=== PATIENT | female | born 1945 | race Caucasian/White ===

== ENCOUNTER → 2016-12-20 | Outpatient (CLI) | payer BC, OTHER ==
[~2016-12-20] MED LIST: ADVIN10/60 INH; ASCO500T16 PO; B-COCAP2 PO; BUDESUS; CHOL1000 PO; CTP1 PO; ERGO1TAB PO; HYDR0.054 PV; LEVO112T4 PO; LIDEX TD; MUCINEX PO; NTRGSL/4 UT; NXM/40 PO; OXYC-57 PO; TELM40TA PO; TELM40TA11 PO; VERA1TAB PO; XPNIN INH
== END | disposition home or self-care (01) ==
LOC: C.LABSPEC 11:09
PROVIDERS: ATTEND Urology
DX: N20.0 Calculus of kidney (principal)

== ENCOUNTER → 2017-01-22 | Outpatient (CLI) | payer BC, OTHER ==
--- NOTE | 2017-01-22 10:55 | DIAGNOSTIC IMAGING REPORT ---
CHEST CT WITHOUT CONTRAST CT DOSE: 252.57 mGy.cm HISTORY: Pulmonary nodule SOLITARY PULMONARY NODULE TECHNIQUE: Multiaxial CT images of the chest were performed without contrast. COMPARISON: None. FINDINGS: Lungs remain clear. Nodularity peripheral aspect right midlung is unchanged. Focal areas of scarlike change anterior aspect right middle lobe as well as the lingula appear stable. There is no new interval or progressive finding. There is no significant mediastinal or hilar adenopathy which is progressive. Several small nodes are identified in the pretracheal and aortopulmonary window region all of which are stable. IMPRESSION: Stable exam with no change from the prior study. No new or interval process. Follow-up per standard criteria. Please refer to below summary of Fleischner criteria recommendations for follow-up of incidental CT nodules (Dixon Kwan, Guidelines for management of small pulmonary nodules detected on CT scans: A statement from the Fleischner Society, Radiology 237: [phone].) Low Risk Patient: Minimal or no smoking or other known risk factors for malignancy <=4 mm: No follow-up needed. >4-6 mm: Initial follow-up CT at 12 months; if unchanged, no further follow-up. >6-8 mm: Initial follow-up CT at 6-12 months then at 18-24 months if no change. >8 mm: Follow-up CT at \R\3, 9, 24 months, or PET and/or biopsy. High Risk Patient: History of smoking or other known risk factors <=4 mm: Follow-up at 12 months; if unchanged, no further follow-up. >4-6 mm: Initial follow-up CT at 6-12 months then at 18-24 months if no change. >6-8 mm: Initial follow-up CT at 3-6 months then at 9-12 and 24 months if no change. >8 mm: Same as low risk patient. Note: Nodule size measured as average of length and width. Ground glass or partly solid nodules may require longer follow-up to exclude indolent adenocarcinoma. Electronically signed by: Leo Jorge M.D. 01/22/2017 10:54 AM Dictated Date/Time: 01/22/2017 10:19 AM
== END | disposition home or self-care (01) ==
LOC: C.CTS 10:05
PROVIDERS: ATTEND Family Medicine
DX: R91.1 Solitary pulmonary nodule (principal)

== ENCOUNTER → 2017-02-07 | Outpatient (CLI) | payer BC, OTHER ==
--- NOTE | 2017-02-07 11:34 | DIAGNOSTIC IMAGING REPORT ---
BILATERAL CAROTID DOPPLER STUDY HISTORY: CAROTID Stenosis, pt TO MRI AFTER COMPARISON: Carotid Doppler 04/30/2014. TECHNIQUE: Real-time, grayscale, and color Doppler sonography of the carotid arteries was performed. Imaging reviewed in the transverse and longitudinal planes. All measurements were calculated based on NASCET criteria. FINDINGS: Antegrade flow is seen in the bilateral vertebral arteries. The brachial pressures are hemodynamically similar. Moderate calcified plaque within the bilateral proximal internal carotid arteries. The peak systolic velocity within the right ICA is 70 cm/s. The right systolic ratio is 1.0. The peak systolic velocity within the left ICA is 197 cm/s proximally. The left systolic ratio is 2.7. IMPRESSION: 1. Approximately 50-69% stenosis within the proximal left internal carotid artery. This is likely progressed. 2. No hemodynamically significant stenosis within the right carotid arteries. Electronically signed by: Seun Bedolla M.D. 02/07/2017 11:32 AM Dictated Date/Time: 02/07/2017 11:28 AM
--- NOTE | 2017-02-07 12:47 | DIAGNOSTIC IMAGING REPORT ---
CERVICAL SPINE MRI HISTORY: Pain. Radiculopathy. M54.12 Cervical radicular [id number] TECHNIQUE: Multiplanar multisequence MRI of the cervical spine was performed without the use of contrast. COMPARISON STUDY: None. FINDINGS: Mild/moderate degenerative disc change throughout the entire cervical region. This is most prominent at C5-C6. Signal characteristics of the cervical cord appear unremarkable. C2-C3: Minimal central disc bulge C3-C4: Minimal/mild central disc bulge. Slight impact anterior cervical cord C4-C5: Minimal broad-based disc bulge C5-C6: Moderate broad-based bulging disc with moderate osteophytic narrowing of the neuroforamina bilaterally C6-C7: Moderate broad-based bulging disc with moderate narrowing of the neuroforamina bilaterally C7-T1: No significant central canal or neural foraminal narrowing. IMPRESSION: 1. Mild/moderate degenerative disc change throughout the entire cervical region. 2. Slight to mild disc bulges from C3 to C6. No major impact upon the cervical cord 3. Moderate narrowing of the neuroforamina bilaterally at C5-C6 and C6-C7 4. Unremarkable signal characteristics of the cervical cord Electronically signed by: Leo Jorge M.D. 02/07/2017 12:46 PM Dictated Date/Time: 02/07/2017 12:43 PM
== END | disposition home or self-care (01) ==
LOC: C.ULTR 10:32
PROVIDERS: ATTEND Psychiatry & Neurology Neurology
DX: I65.22 Occlusion and stenosis of left carotid artery (principal); M50.11 Cervical disc disorder with radiculopathy, high cervical region; M50.121 Cervical disc disorder at C4-C5 level with radiculopathy

== ENCOUNTER → 2017-02-13 | Outpatient (CLI) | payer BC, OTHER | END | disposition home or self-care (01) | LOC: C.LABSPEC 17:32 | PROVIDERS: ATTEND Nurse Practitioner Family | DX: N39.0 Urinary tract infection, site not specified (principal) ==

== ENCOUNTER → 2017-03-14 | Outpatient (CLI) | payer BC, OTHER ==
--- NOTE | 2017-03-14 11:31 | DIAGNOSTIC IMAGING REPORT ---
MRI OF THE LUMBAR SPINE WITHOUT IV CONTRAST CLINICAL HISTORY: Chronic low back pain. COMPARISON STUDY: Radiographs of the lumbar spine dated 09/07/2016. Abdominal CT dated 06/22/2016. TECHNIQUE: MRI of the lumbar spine is performed utilizing various T1 and T2-weighted sequences in the axial and sagittal planes. IV contrast was not administered for this examination. FINDINGS: Lumbar spine: Vertebral body height and alignment are maintained throughout the lumbar spine. Marrow signal intensity is heterogeneous. Advanced sclerotic degenerative endplate change is seen at L4-L5 and L5-S1. Milder degenerative endplate change is seen at the remaining lumbar levels. Degenerative endplate edema is noted at T12-L1, L2-L3, L4-L5, and L5-S1. The transverse and spinous processes appear intact. Anterior osteophytes are seen throughout. No destructive bony lesion is seen. A Schmorl's node is present in the superior endplate of T12. There is no evidence of spondylolysis. Intervertebral discs: Degenerative disc desiccation and loss of height is seen throughout the lumbar spine. Loss of height is severe at L4-L5 and L5-S1, and moderate at the remaining lumbar levels. Spinal cord: The partially imaged spinal cord is normal in morphology and signal intensity. The conus medullaris terminates at the L1-L2 interspace. The nerve roots of the cauda equina are normal in morphology. L1-L2: Unremarkable. L2-L3: There is a broad-based posterior disc bulge eccentric to the left with annular fissure. This causes mild acquired compromise of the central canal with a minimum AP diameter of 9 mm. This causes severe left-sided subarticular stenosis and likely impinges on the exiting left L2 and the transiting left L3 nerve roots. The neural foramina appear clear. L3-L4: There is broad-based posterior disc bulge. In conjunction with hypertrophy of the ligamentum flavum, there is mild to moderate acquired compromise of the central canal at this level with a minimum AP diameter of 7 mm. There is mild bilateral subarticular stenosis. The disc bulge likely abuts the transiting bilateral L4 nerve roots. The neural foramina appear clear. L4-L5: There is broad-based posterior disc bulge with annular fissure. In conjunction with hypertrophy of the ligamentum flavum, there is moderate central canal stenosis at this level with a minimum AP diameter of 5.5 mm. There is bilateral subarticular stenosis. The neural foramina appear clear. Facet arthropathy is of no consequence. L5-S1: There is minimal posterior disc bulge. No significant acquired compromise of the central canal seen at this level. There is bilateral subarticular stenosis with possible impingement on the exiting left L5 nerve root. The disc bulge likely abuts the transiting left S1 nerve root. Facet arthropathy causes mild bilateral neural foraminal stenosis. Soft tissues: There is fatty atrophy of the paraspinous musculature. The partially imaged retroperitoneal structures are grossly unremarkable, but incompletely assessed. Sacrum: The visualized sacrum is normal in morphology and signal intensity. IMPRESSION: 1. Advanced degenerative disc disease with multilevel endplate change/edema as above. 2. Lumbosacral spondylosis as above with multilevel acquired compromise of the central canal seen from L2-L3 through L4-L5. See discussion for detailed level by level analysis. Dictated: 03/14/2017 11:18 AM Transcribed: 03/14/2017 11:30 AM [email or web address]_[email or web address] Electronically signed by: Quintin Coleman M.D. 03/14/2017 11:39 AM Dictated Date/Time: 03/14/2017 11:18 AM
== END | disposition home or self-care (01) ==
LOC: C.MRI 10:06
PROVIDERS: ATTEND Physician Assistant
DX: M54.5 Low back pain (principal); M47.817 Spondylosis without myelopathy or radiculopathy, lumbosacral region; M51.37 Other intervertebral disc degeneration, lumbosacral region

== ENCOUNTER → 2017-03-29 | Outpatient (CLI) | payer BC, OTHER | END | disposition home or self-care (01) | LOC: C.LABSPEC 17:17 | PROVIDERS: ATTEND Nurse Practitioner Family | DX: N39.0 Urinary tract infection, site not specified (principal); N81.10 Cystocele, unspecified ==

== ENCOUNTER → 2017-09-10 | Outpatient (CLI) | payer BC, OTHER ==
[2017-09-15 12:32] LABS: ASPERGILLUS FLAVUS Negative (Negative); ASPERGILLUS FUMIGATUS Negative (Negative); ASPERGILLUS NIGER Negative (Negative)
== END | disposition home or self-care (01) ==
LOC: C.LAB 14:59
PROVIDERS: ATTEND Family Medicine
DX: R53.83 Other fatigue (principal); E55.9 Vitamin D deficiency, unspecified

== ENCOUNTER → 2017-10-02 | Outpatient (CLI) | payer BC, OTHER ==
--- NOTE | 2017-10-02 16:22 | DIAGNOSTIC IMAGING REPORT ---
THORACIC SPINE 3 VIEWS ROUTINE CLINICAL HISTORY: 72 years-old Female presenting with PAIN IN THORACIC SPINE. TECHNIQUE: 3 views of the thoracic spine were obtained. COMPARISON: MR from [address] from 01/22/2017. FINDINGS: Normal thoracic kyphosis. Vertebral bodies maintain normal height and alignment. Intervertebral disc spaces preserved. Mild multilevel degenerative changes evident with osteophytosis. No radiographic evidence of compression deformity. Atherosclerosis of aortic arch. Visualized portion of the thorax otherwise normal. IMPRESSION: No radiographic evidence of compression deformity to suggest acute osseous injury. Mild multilevel degenerative change. Electronically signed by: Brian Londono M.D. 10/02/2017 4:20 PM Dictated Date/Time: 10/02/2017 4:18 PM
[2017-10-02 16:32] LABS: MEAN CELL VOLUME 88.7 fL (80-100); MEAN CORPUSCULAR HEMOGLOBIN 30.4 pg (25-34); MEAN CORPUSCULAR HGB CONC 34.3 g/dl (32-36); MEAN PLATELET VOLUME 11.2 fL (7.4-10.4); PLATELET COUNT 224 K/uL (130-400); RED BLOOD COUNT 4.51 M/uL (4.2-5.4); WHITE BLOOD COUNT 5.96 K/uL (4.8-10.8)
[2017-10-02 17:14] LABS: MAGNESIUM 2.1 mg/dl (1.8-2.4); THYROID STIMULATING HORMONE 0.091 uIu/ml (0.300-4.500)
== END | disposition home or self-care (01) ==
LOC: C.LAB 14:54
PROVIDERS: ATTEND Family Medicine
DX: E03.8 Other specified hypothyroidism (principal); R53.83 Other fatigue; M54.6 Pain in thoracic spine

== ENCOUNTER → 2018-01-24 | Day surgery (SDC) | payer BC, OTHER ==
[2018-01-18 10:06] VITALS: Ht 154.9 cm; Wt 69.5 kg
[~2018-01-24] VITALS: Ht 154.9 cm; Wt 69.5 kg
[~2018-01-24] MED LIST changes: -ASCO500T16 PO; +ASCO500T3 PO; -B-COCAP2 PO; +B-COTAB18 PO; +BUDE1SUS8; -BUDESUS; +CEFACLOR PO; +CETI10TA84 PO; -CHOL1000 PO; +CHOL1TAB46 PO; +CLON0.1T12 PO; -CTP1 PO; +DIPH1LIQ2 PO; -HYDR0.054 PV; +LABETALOL HCL IV 5 MG/ML 20ML IV ONE; +LDXCR30; +LEVA45AE INH; +LEVO112T2 PO; -LEVO112T4 PO; -LIDEX TD; +LIDOCAINE HCL 2% 2 ML VIAL (20MG/ML) ONE; +METH500T37 PO; -MUCINEX PO; -NXM/40 PO; +PROPOFOL IV EMULSION 10 MG/ML 20 ML VIAL IV ONE; +PSEU60TA80 PO; -TELM40TA PO; -TELM40TA11 PO; +TRIM1TAB PO; -XPNIN INH
--- NOTE | 2018-01-24 11:53 | Endo History and Physical ---
History & Physical Date of Service: Jan 24, 2018. Chief Complaint: history of polyps Referring Physician: Dr. Mauricio Cui History of Present Illness H/o polyps Past Surgical History Hx Cardiac Surgery: Yes (HEART CATH/NO STENTS 1999?) Hx Internal Defibrillator: No Hx Pacemaker: No Hx Abdominal Surgery: Yes (HYSTERECTOMY, APPY) Hx of Implantable Prosthesis: No Hx Post-Op Nausea and Vomiting: No Hx Cancer Surgery: Yes (SKIN REMOVAL) Hx Thoracic Surgery: No Hx Orthopedic: Yes Hx Urinary Tract Surgery: Yes (BLADDER REPAIR) Family History IBD Social History Smoking Status: Former Smoker Hx Substance Use: Yes (SEE PCS) Hx Alcohol Use: No Allergies Coded Allergies: Amoxicillin (Verified Allergy, Unknown, ., 01/18/18) Cefixime (Verified Allergy, Unknown, ., 01/18/18) Cefuroxime (Verified Allergy, Unknown, ., 01/18/18) Cephalexin (Verified Allergy, Unknown, ., 01/18/18) Cephalosporins (Verified Allergy, Unknown, ., 01/18/18) Ciprofloxacin (Verified Allergy, Unknown, ., 01/18/18) Clarithromycin (Verified Allergy, Unknown, ., 01/18/18) Clindamycin (Verified Allergy, Unknown, ., 01/18/18) Doxycycline (Verified Allergy, Unknown, ., 01/18/18) Gabapentin (Verified Allergy, Unknown, ., 01/18/18) Latex (Verified Allergy, Unknown, ., 01/18/18) Levofloxacin (Verified Allergy, Unknown, ., 01/18/18) Lidocaine (Verified Allergy, Unknown, ., 01/18/18) Morphine and Related (Verified Allergy, Unknown, ., 01/18/18) Moxifloxacin (Verified Allergy, Unknown, ., 01/18/18) Nitrofurantoin (Verified Allergy, Unknown, ., 01/18/18) Penicillins (Verified Allergy, Unknown, ., 01/18/18) Primidone (Verified Allergy, Unknown, ., 01/18/18) Quinolones (Verified Allergy, Unknown, ., 01/18/18) Shellfish (Verified Allergy, Unknown, ., 01/18/18) Sodium Benzoate (Verified Allergy, Unknown, ., 01/18/18) Statins (Verified Allergy, Unknown, ., 01/18/18) Sulfa Antibiotics (Verified Allergy, Unknown, ., 01/18/18) Tetracycline (Verified Allergy, Unknown, ., 01/18/18) Uncoded Allergies: METAL (Allergy, Unknown, SEVERE REACTION, SKIN REACTION, 01/18/18) Current Medications Reported Home Medications Medications Dose Route/Sig Max Daily Dose Days Date Category Dose Instructions Zyrtec (Cetirizine HCl) 10 Mg Tab 10 Mg PO DAILY 01/24/18 Reported Levalbuterol Tartrate Hfa (Levalbuterol Tartrate) 45 Mcg/Act Aer 1 Puff INH QID PRN 01/18/18 Reported Vitamin D3 (Cholecalciferol) 5,000 Unit Tab 1 Tab PO DAILY 01/18/18 Reported Vitamin C (Ascorbic Acid) 500 Mg Tab 1 Tab PO DAILY 01/18/18 Reported Vitamin B Complex (B-Complex Vitamins) 1 Tab Tab 0.5 Tab PO TOLERATED 01/18/18 Reported Proloprim (Trimethoprim) 100 Mg Tab 100 Mg PO BID 01/18/18 Reported Synthroid (Levothyroxine Sodium) 112 Mcg Tab 112 Mcg PO DAILY 01/18/18 Reported Rhinocort Allergy (Budesonide (Nasal)) 32 Mcg/Act Teresa 01/18/18 Reported Percocet 5MG/325MG (Oxycodone/Acetaminophen) Tab 1 Tablet PO Q6H PRN 01/18/18 Reported PAIN Nitrostat (Nitroglycerin) 0.4 Mg Tab 0.4 Mg UT PRN 01/18/18 Reported Mucinex D (Pseudoephedrine-Guaifenesin) 1 Tab Tab 0.5 Tab PO BID 01/18/18 Reported Lidex 0.05% Cream (Fluocinonide) 90 Appln/30 Gm Cr 01/18/18 Reported Robaxin (Methocarbamol) 500 Mg Tab 500 Mg PO BID PRN 01/18/18 Reported Cafergot (Ergotamine W/ Caffeine) 1 Tab Tab 1 Tab PO DIRECTED PRN 01/18/18 Reported Catapres (Clonidine Hcl) 0.1 Mg Tab 0.5 Tab PO BID 01/18/18 Reported [Cefaclor] 1 Cap PO DIRECTED 01/18/18 Reported Calan (Verapamil HCl) 80 Mg Tab 80 Mg PO TID PRN 01/18/18 Reported Benadryl Allergy Children (Diphenhydramine Hcl) 12.5 Mg/5 Ml Liq 12.5 Mg PO DIRECTED 01/18/18 Reported Advair Diskus 100/50 60 Dose (Fluticasone Prop/Salmeterol) 1 Ea Aerp 1 Puffs INH DIRECTED 01/18/18 Reported Vital Signs Weight (Kilograms): 69.55 Height (Feet): 5 Height (Inches): 1 Date Time Temp Pulse Resp B/P (MAP) Pulse Ox O2 Delivery O2 Flow Rate FiO2 01/24/18 11:15 36.3 83 18 144/96 (112) 97 Room Air Physical Exam General Appearance: no apparent distress Respiratory/Chest: Auscultation: breath sounds normal Cardiovascular: Heart Auscultation: RRR Abdomen: Inspection & Palpation: soft Assessment and Plan H/o polyps - cscopy
--- NOTE | 2018-01-24 12:31 | Discharge Instructions ---
Endoscopy Patient Instructions Date / Procedure(s) Performed Jan 24, 2018. Colonoscopy Allergy Information Coded Allergies: Amoxicillin (Verified Allergy, Unknown, ., 01/18/18) Cefixime (Verified Allergy, Unknown, ., 01/18/18) Cefuroxime (Verified Allergy, Unknown, ., 01/18/18) Cephalexin (Verified Allergy, Unknown, ., 01/18/18) Cephalosporins (Verified Allergy, Unknown, ., 01/18/18) Ciprofloxacin (Verified Allergy, Unknown, ., 01/18/18) Clarithromycin (Verified Allergy, Unknown, ., 01/18/18) Clindamycin (Verified Allergy, Unknown, ., 01/18/18) Doxycycline (Verified Allergy, Unknown, ., 01/18/18) Gabapentin (Verified Allergy, Unknown, ., 01/18/18) Latex (Verified Allergy, Unknown, ., 01/18/18) Levofloxacin (Verified Allergy, Unknown, ., 01/18/18) Lidocaine (Verified Allergy, Unknown, ., 01/18/18) Morphine and Related (Verified Allergy, Unknown, ., 01/18/18) Moxifloxacin (Verified Allergy, Unknown, ., 01/18/18) Nitrofurantoin (Verified Allergy, Unknown, ., 01/18/18) Penicillins (Verified Allergy, Unknown, ., 01/18/18) Primidone (Verified Allergy, Unknown, ., 01/18/18) Quinolones (Verified Allergy, Unknown, ., 01/18/18) Shellfish (Verified Allergy, Unknown, ., 01/18/18) Sodium Benzoate (Verified Allergy, Unknown, ., 01/18/18) Statins (Verified Allergy, Unknown, ., 01/18/18) Sulfa Antibiotics (Verified Allergy, Unknown, ., 01/18/18) Tetracycline (Verified Allergy, Unknown, ., 01/18/18) Uncoded Allergies: METAL (Allergy, Unknown, SEVERE REACTION, SKIN REACTION, 01/18/18) Discharge Date / Findings Jan 24, 2018. Diminutive polyps Medication Instructions Resume all held medications today. Provider Instructions Activity Restrictions - No exercising or heavy lifting for 24 hours. - Do not drink alcohol the day of the procedure. - Do not drive a car or operate machinery until the day after the procedure. - Do not make any important decisions or sign important papers in 24 hours after the procedure. Following Day: - Return to full activity which may include returning to work/school. Diet Start your diet with liquids and light foods (jello, soup, juice, toast). Then eat your usual diet if not nauseated. Treatment For Common After Affects For mild abdominal pain, bloating, or excessive gas: - Rest - Eat lightly - Lie on right side Follow-Up Information Follow-up with Dr. Mauricio Cui as scheduled Anesthesia Information What You Should Know You have had a procedure that required some medicine to reduce anxiety and discomfort. This treatment is called moderate sedation. After receiving the treatment, you may be sleepy, but you will be able to breathe on your own. The effects of the treatment may last for several hours. Follow these instructions along with Activity/Diet recommendations noted above: * Do NOT do anything where dizziness or clumsiness would be dangerous. * Rest quietly at home today, then you can be up and about tomorrow. * Have a responsible person stay with you the rest of today. * You may have had an I.V. today. If so, you may take the dressing off later today. Recommendations Call your doctor if: * Trouble breathing * Continuous vomiting for more than 24 hours * Temperature above 101 degrees * Severe abdominal pain or bloating * Pain not relieved by pain medicine ordered * There is increased drainage or redness from any incision * A large amount of rectal bleeding greater than 2-3 tablespoons. (If you had a polyp/s removed or have hemorrhoids, a small amount of blood - from the rectum is to be expected.) * You have any unanswered questions or concerns. IN THE EVENT OF A SERIOUS EMERGENCY, GO TO THE NEAREST EMERGENCY ROOM Your discharge instructions were prepared by provider Leonie Randhawa. Patient Instructions Signature Page Cinthia Mayer Patient (or Guardian) Signature/Date: I have read and understand the instructions given to me by my caregivers. Caregiver/RN/Doctor Signature/Date: The above-named patient and/or guardian has received patient instructions on this date. + Original Patient Signature Page (only) stays with chart. Please make copy for patient.
--- NOTE | 2018-01-24 12:35 | GI REPORT ---
Procedure Date: 01/24/2018 12:04 PM Procedure: Colonoscopy Indications: High risk colon cancer surveillance: Personal history of colonic polyps Medicines: See the Anesthesia note for documentation of the administered medications Complications: No immediate complications. Estimated Blood Loss: Estimated blood loss: none. Procedure: Pre-Anesthesia Assessment: - ASA Grade Assessment: III - A patient with severe systemic disease. After I obtained informed consent, the scope was passed under direct vision. Throughout the procedure, the patient's blood pressure, pulse, and oxygen saturations were monitored continuously. The scope was introduced through the anus and advanced to the cecum, identified by appendiceal orifice and ileocecal valve. The colonoscopy was performed without difficulty. The patient tolerated the procedure well. The quality of the bowel preparation was good. Findings: The perianal and digital rectal examinations were normal. Multiple small and large-mouthed diverticula were found in the sigmoid colon. Four sessile polyps were found in the descending colon and transverse colon. The polyps were 1 to 3 mm in size. These polyps were removed with a cold biopsy forceps. Resection and retrieval were complete. The exam was otherwise without abnormality. Impression: - Diverticulosis in the sigmoid colon. - Four 1 to 3 mm polyps in the descending colon and in the transverse colon, removed with a cold biopsy forceps. Resected and retrieved. - The examination was otherwise normal. Recommendation: - Discharge patient to home. Leonie Sorensen M.D. Leonie Sorensen MD 01/24/2018 12:34:52 PM This report has been signed electronically. Note Initiated On: 01/24/2018 12:04 PM I attest to the content of the Intraoperative Record and orders documented therein, exceptions below
--- NOTE | 2018-01-24 12:50 | Anesthesiology Progress Note ---
Anesthesia Post Op Note Date & Time Jan 24, 2018 at 12:50 Vital Signs Pain Intensity: 0 Vital Signs Past 12 Hours Date Time Temp Pulse Resp B/P (MAP) Pulse Ox O2 Delivery O2 Flow Rate FiO2 01/24/18 12:43 75 16 142/70 (94) 96 Room Air 01/24/18 12:28 71 16 114/56 (75) 98 Room Air 01/24/18 11:15 36.3 83 18 144/96 (112) 97 Room Air Notes Mental Status: alert / awake / arousable, participated in evaluation Pt Amnestic to Procedure: Yes Nausea / Vomiting: adequately controlled Pain: adequately controlled Airway Patency, RR, SpO2: stable & adequate BP & HR: stable & adequate Hydration State: stable & adequate Anesthetic Complications: no major complications apparent
[2018-01-24 12:58] VITALS: BP 165/73; PULSE 72; O2SAT 98
== END | disposition home or self-care (01) ==
LOC: C.GI 10:54
PROVIDERS: ATTEND Internal Medicine Gastroenterology
DX: Z12.11 Encounter for screening for malignant neoplasm of colon (principal); D12.4 Benign neoplasm of descending colon; D12.3 Benign neoplasm of transverse colon; K57.30 Diverticulosis of large intestine without perforation or abscess without bleeding; Z86.010 Personal history of colon polyps; J45.909 Unspecified asthma, uncomplicated; I10 Essential (primary) hypertension; K44.9 Diaphragmatic hernia without obstruction or gangrene; E03.9 Hypothyroidism, unspecified; K21.9 Gastro-esophageal reflux disease without esophagitis; M19.90 Unspecified osteoarthritis, unspecified site; E78.5 Hyperlipidemia, unspecified; N18.9 Chronic kidney disease, unspecified; R56.9 Unspecified convulsions; Z90.710 Acquired absence of both cervix and uterus; Z90.89 Acquired absence of other organs; Z88.1 Allergy status to other antibiotic agents; Z91.040 Latex allergy status; Z88.5 Allergy status to narcotic agent; Z88.0 Allergy status to penicillin; Z88.2 Allergy status to sulfonamides; Z85.820 Personal history of malignant melanoma of skin; Z86.73 Personal history of transient ischemic attack (TIA), and cerebral infarction without residual deficits; Z87.442 Personal history of urinary calculi; Z92.241 Personal history of systemic steroid therapy; Z87.891 Personal history of nicotine dependence

== ENCOUNTER 2018-03-04 02:16 | Observation (INO) | payer BC, OTHER ==
[2018-03-04] VITALS (13 sets, daily range): BP systolic 151–197; BP diastolic 64–87; PULSE 63–97; TEMP 36.6–36.9; O2SAT 91–98; Ht 154.9 cm; Wt 73.5 kg
[~2018-03-04] VITALS: Ht 154.9 cm; Wt 73.5 kg
[~2018-03-04 02:16] MED LIST changes: -LABETALOL HCL IV 5 MG/ML 20ML IV ONE; -LIDOCAINE HCL 2% 2 ML VIAL (20MG/ML) ONE; -PROPOFOL IV EMULSION 10 MG/ML 20 ML VIAL IV ONE
[2018-03-04] MEDS ORDERED: CLONIDINE HCL 0.1 MG TAB PO ONE (02:30)
[2018-03-04 02:46] LABS: BASO % 0.8 %; BASO ABS # 0.05 K/uL (0-0.2); EOS % 10.6 %; EOS ABS # 0.63 K/uL (0-0.5); HEMATOCRIT 39.9 % (37-47); IG# 0.02 K/uL (0.00-0.02); MEAN CELL VOLUME 87.7 fL (80-100); MEAN CORPUSCULAR HEMOGLOBIN 30.8 pg (25-34); MEAN CORPUSCULAR HGB CONC 35.1 g/dl (32-36); MEAN PLATELET VOLUME 9.9 fL (7.4-10.4); MONO % 7.7 %; MONO ABS # 0.46 K/uL (0.11-0.59); NEUT % 48.6 %; NEUT ABS # 2.88 K/uL (1.4-6.5); PLATELET COUNT 246 K/uL (130-400); RED CELL DISTRIBUTION WIDTH SD 41.5 fL (36.4-46.3); WHITE BLOOD COUNT 5.94 K/uL (4.8-10.8)
[2018-03-04 03:02] LABS: PTT PATIENT 25.5 SECONDS (21.0-31.0)
[2018-03-04 03:03] LABS: ALBUMIN 3.7 gm/dl (3.4-5.0); ALT/SGPT 30 U/L (12-78); AST/SGOT 21 U/L (15-37); BLOOD UREA NITROGEN 7 mg/dl (7-18); CALCIUM 9.1 mg/dl (8.5-10.1); CARBON DIOXIDE 29 mmol/L (21-32); CREATININE 0.77 mg/dl (0.60-1.20); GLUCOSE 134 mg/dl (70-99); POTASSIUM 3.9 mmol/L (3.5-5.1); SODIUM 139 mmol/L (136-145)
[2018-03-04 03:14] LABS: ALKALINE PHOSPHATASE 92 U/L (45-117); TOTAL PROTEIN 8.1 gm/dl (6.4-8.2)
[2018-03-04] MEDS ORDERED: SODIUM CHLORIDE 0.9% 500ML 500 ML IV STA (03:15)
[2018-03-04] MEDS ORDERED: HydrALAZINE HCL 20 MG/ML VIAL IV. STA (03:27)
[2018-03-04] MEDS ORDERED: GUAI1TAB55 PO (03:28)
[2018-03-04] MEDS ORDERED: ACETAMINOPHEN 325 MG TAB PO STA (03:48)
[2018-03-04] MEDS ORDERED: ASPIRIN 81 MG CHEW PO STA (04:00)
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
[2018-03-04] MEDS ORDERED: POLYETHYLENE (MIRALAX) 17 GM PACK PO PRN (05:00)
[2018-03-04] MEDS ORDERED: PHARMACIST DISCHARGE MED REC CONSULT PRN (05:00)
[2018-03-04] MEDS ORDERED: ACETAMINOPHEN 325 MG TAB PO PRN (05:00)
[2018-03-04] MEDS ORDERED: VERAPAMIL HCL 40 MG TAB PO PRN (05:00)
[2018-03-04] MEDS ORDERED: LEValbuterol HFA 15GM INHALER INH PRN (05:00)
[2018-03-04] MEDS ORDERED: ALUMINUM/MAGNESIUM/SIMETH (MAALOX MAX) 30 ML UDC PO PRN (05:00)
[2018-03-04] MEDS ORDERED: MAGNESIUM HYDROXIDE SUSP 30 ML UDC PO PRN (05:00)
[2018-03-04] MEDS ORDERED: ONDANSETRON INJ 2 MG/ML 2 ML VIAL IV PRN (05:00)
[2018-03-04] MEDS ORDERED: METHOCARBAMOL 500 MG TAB PO PRN (05:00)
[2018-03-04] MEDS ORDERED: HydrALAZINE HCL 20 MG/ML VIAL IV. PRN (05:30)
[2018-03-04] MEDS ORDERED: IV FLUIDS COMPLETED PRN (05:30)
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
[2018-03-04] MEDS: OXYCODONE/ACETAMINOPHEN 5-325 TAB PO PRN ×2 (06:07→18:42)
--- NOTE | 2018-03-04 06:18 | EMERGENCY ROOM VISIT NOTE ---
ED Visit Note First contact with patient: 02:21 I have personally evaluated and examined this patient. I agree with assessment and plan of Analia Soliz PA-C.
--- NOTE | 2018-03-04 07:16 | DIAGNOSTIC IMAGING REPORT ---
HEAD CT NONCONTRAST, SINUS CT NONCONTRAST CT DOSE: HISTORY: Headache, sinus pain TECHNIQUE: Multiaxial CT images of the head and sinuses were performed without the use of intravenous contrast. Coronal and sagittal reformations of the sinuses were also obtained. Automated exposure control was utilized for this study. A dose lowering technique was utilized adhering to the principles of ALARA. Comparison: None. Findings: Mild mucosal thickening throughout the paranasal sinuses. Mild right nasal septal deviation. The mastoid air cells are clear. No fluid levels within the paranasal sinuses. The mastoid air cells are clear. Partial opacification of the bilateral ethmoid abdomen fibula. Hypertrophy of the right inferior nasal turbinate. The lamina papyracea and orbital floors are intact. The calvarium and skull base are intact. There is no mass, hematoma, midline shift, acute infarct. White matter hypodensity is nonspecific but suggestive of microvascular ischemic change. The ventricles and sulci demonstrate mild age-related involutional changes. Old lacunar infarct within the right basal ganglia. Impression: No acute intracranial abnormality. Atrophy and microvascular ischemic changes. Mild mucosal thickening within the paranasal sinuses. Electronically signed by: Seun Bedolla M.D. 03/04/2018 7:14 AM Dictated Date/Time: 03/04/2018 7:04 AM
--- NOTE | 2018-03-04 07:23 | DIAGNOSTIC IMAGING REPORT ---
CHEST ONE VIEW PORTABLE CLINICAL HISTORY: Hypertension COMPARISON STUDY: 04/07/2016 FINDINGS: The cardiac and mediastinal contours are normal. There is no evidence of focal pulmonary consolidation. There is no evidence of failure. No pleural effusions are visualized.[ There is minimal left basilar atelectasis IMPRESSION: No active disease in the chest. Electronically signed by: Bonifacio Walters M.D. 03/04/2018 7:22 AM Dictated Date/Time: 03/04/2018 7:21 AM
[2018-03-04] MEDS: FLUTICASONE/SALMETEROL 100/50 (ADVAIR) 14 PUFF/1 INHALER INH SCH (07:58)
[2018-03-04] MEDS: CLONIDINE HCL 0.1 MG TAB PO SCH (07:59)
[2018-03-04] MEDS: CETIRIZINE HCL 10 MG TAB PO SCH (07:59)
[2018-03-04] MEDS: ASPIRIN 81 MG ECTAB PO SCH (08:00)
[2018-03-04] MEDS: GUAIFENESIN 200 MG TAB PO SCH ×2 (08:01→20:49)
[2018-03-04] MEDS: ENOXAPARIN 40 MG/0.4 ML SYR SC SCH ×2 (08:01→08:24)
--- NOTE | 2018-03-04 08:59 | Neurology Consultation ---
Neurology Consultation Date of Consultation: Mar 04, 2018. Attending Physician: Christian Jasso M.D. Primary Care Physician: Mauricio Cui D.O. Reason for Consultation: Hypertensive urgency, TIA symptoms History of Present Illness Source: patient, hospital records The patient is a 72-year-old female with a history of chronic cerebral vascular disease, left internal carotid artery stenosis, frequent headaches, chronic sinusitis, and labile hypertension. She follows with Dr. Gonzales for headaches. She is prescribed verapamil, Robaxin, and Cafergot. She uses the Cafergot infrequently, only 1/2 tablet at a time. The patient reports that she has been dealing with an exacerbation of her chronic sinus issues recently and is prescribed an antibiotic for a suspected sinus infection. She has been complaining of a greater degree of frontal headache than usual. The patient also indicates that her blood pressure has been significantly elevated recently. She recalls an episode of confusion that persisted for about 40 minutes 2 days ago. She recalls having difficulty recording her blood pressure readings at that time although recalls that it was elevated. She also had some associated nausea and vomiting which has resolved. The patient presented to the hospital complaining of headache. Her blood pressure was found to be significantly elevated and she was subsequently admitted under observation status for further evaluation and management. A CT of the head was negative for hemorrhage or acute process. There is evidence of a chronic right basal ganglia lacune. I reviewed the images as well as the radiologist's interpretation of this test.An EKG reveals a normal sinus rhythm, 77 beats per minute. An MRI of the brain and carotid ultrasound have been ordered.The patient has been started on daily low-dose aspirin. She indicates that she has not been taking aspirin or a another blood thinner as an outpatient. She reports an allergy or intolerance to statins. Past Medical/Surgical History Medical Problems: (1) Hypertensive urgency Status: Acute (2) Knee fracture, left Status: Acute (3) Left knee pain Status: Acute (4) TIA (transient ischemic attack) Status: Acute Family History Family history noncontributory Social History Smokeless Tobacco Use: No Drug Use: none Marital Status: Occupation Status: retired Allergies Coded Allergies: Amoxicillin (Verified Allergy, Unknown, ., 03/04/18) Cefixime (Verified Allergy, Unknown, ., 03/04/18) Cefuroxime (Verified Allergy, Unknown, ., 03/04/18) Cephalexin (Verified Allergy, Unknown, ., 03/04/18) Cephalosporins (Verified Allergy, Unknown, ., 03/04/18) Ciprofloxacin (Verified Allergy, Unknown, ., 03/04/18) Clarithromycin (Verified Allergy, Unknown, ., 03/04/18) Clindamycin (Verified Allergy, Unknown, ., 03/04/18) Doxycycline (Verified Allergy, Unknown, ., 03/04/18) Gabapentin (Verified Allergy, Unknown, ., 03/04/18) Latex (Verified Allergy, Unknown, ., 03/04/18) Levofloxacin (Verified Allergy, Unknown, ., 03/04/18) Lidocaine (Verified Allergy, Unknown, ., 03/04/18) Morphine and Related (Verified Allergy, Unknown, ., 03/04/18) Moxifloxacin (Verified Allergy, Unknown, ., 03/04/18) Nitrofurantoin (Verified Allergy, Unknown, ., 03/04/18) Penicillins (Verified Allergy, Unknown, ., 03/04/18) Primidone (Verified Allergy, Unknown, ., 03/04/18) Quinolones (Verified Allergy, Unknown, ., 03/04/18) Shellfish (Verified Allergy, Unknown, ., 03/04/18) Sodium Benzoate (Verified Allergy, Unknown, ., 03/04/18) Statins (Verified Allergy, Unknown, ., 03/04/18) Sulfa Antibiotics (Verified Allergy, Unknown, ., 03/04/18) Tetracycline (Verified Allergy, Unknown, ., 03/04/18) Uncoded Allergies: METAL (Allergy, Unknown, SEVERE REACTION, SKIN REACTION, 01/18/18) Current Inpatient Medications Current Inpatient Medications Medications (Trade) Dose Ordered Sig/Vijaya Route Start Time Stop Time Status Last Admin Dose Admin Budesonide (Rhinocort Aq Nasal [place]) 1 sprays DAILY PRN NA 03/04/18 09:00 04/03/18 08:59 Cetirizine HCl (zyrTEC TAB) 10 mg DAILY PO 03/04/18 09:00 04/03/18 08:59 03/04/18 07:59 10 MG Clonidine HCl (Catapres Tab) 0.05 mg BID PO 03/04/18 09:00 04/03/18 08:59 03/04/18 07:59 0.05 MG Salmeterol Xinafoate/ Fluticasone (Advair Diskus 100/50 Inh) 1 puff BID INH 03/04/18 09:00 04/03/18 08:59 03/04/18 07:58 1 PUFF Guaifenesin (Organidin Nr Tab) 300 mg Q12 PO 03/04/18 09:00 04/03/18 08:59 03/04/18 08:01 300 MG Levalbuterol (Xopenex Hfa Inhaler) 2 puffs QID PRN INH 03/04/18 05:00 04/03/18 04:59 Methocarbamol (Robaxin Tab) 500 mg BID PRN PO 03/04/18 05:00 04/03/18 04:59 Oxycodone/ Acetaminophen (Percocet 5-325mg Tab) 1 tab Q6H PRN PO 03/04/18 05:00 03/18/18 04:59 03/04/18 06:07 1 TAB Verapamil HCl (Isoptin Tab) 80 mg TID PRN PO 03/04/18 05:00 04/03/18 04:59 Miscellaneous Information (Order Awaiting Action) 1 ea QS N/A 03/04/18 08:00 04/03/18 07:59 Enoxaparin Sodium (Lovenox Inj) 40 mg Q24H SC 03/04/18 09:00 04/03/18 08:59 03/04/18 08:01 40 MG Acetaminophen (Tylenol Tab) 650 mg Q4H PRN PO 03/04/18 05:00 04/03/18 04:59 Al Hydrox/Mg Hydrox/Simethicone (Maalox Max Susp) 15 ml Q4H PRN PO 03/04/18 05:00 04/03/18 04:59 Magnesium Hydroxide (Milk Of Magnesia Susp) 30 ml Q12H PRN PO 03/04/18 05:00 04/03/18 04:59 Ondansetron HCl (Zofran Inj) 4 mg Q6H PRN IV 03/04/18 05:00 04/03/18 04:59 Polyethylene (Miralax Powder Packet) 17 gm DAILY PRN PO 03/04/18 05:00 04/03/18 04:59 Aspirin (Ecotrin Tab) 81 mg QAM PO 03/04/18 09:00 04/03/18 08:59 03/04/18 08:00 81 MG Miscellaneous Information (Pharmacist Discharge Med Rec Consult) 1 ea UD PRN N/A 03/04/18 05:00 04/03/18 04:59 Hydralazine HCl (HydrALAZINE INJ) 5 mg Q6H PRN IV. 03/04/18 05:30 04/03/18 05:29 Miscellaneous (Iv Fluids Completed) 1 ea PRN PRN N/A 03/04/18 05:30 03/04/19 05:29 Review of Systems Constitutional: No fever chills Eyes: No vision loss or diplopia ENT: As per history of present illness, no vertigo or hearing loss Cardiovascular: No chest pain or palpitations Respiratory: No coughing or shortness of breath Gastrointestinal: As per history of present illness Neurological: As per history of present illness, patient also endorses some mild difficulty with calculations and concentration recently which seems atypical for her Psychiatric: No depression or anxiety A full 10 point review of systems was obtained from this patient with pertinent positives and negatives described in the history of present illness and otherwise listed above. All remaining systems were reviewed and are negative. Physical Exam Vital Signs (Past 24 Hrs): Date Time Temp Pulse Resp B/P (MAP) Pulse Ox O2 Delivery O2 Flow Rate FiO2 03/04/18 07:37 36.6 85 18 172/82 (112) 94 184/85 (118) 03/04/18 06:15 78 188/78 (114) 03/04/18 06:02 36.6 18 196/87 97 Room Air 03/04/18 05:00 76 16 167/84 98 Room Air 03/04/18 04:00 85 16 163/71 99 Room Air 03/04/18 03:48 84 16 196/94 100 Room Air 03/04/18 03:20 86 20 228/87 98 Room Air 83 228/109 98 219/102 03/04/18 02:39 99 Room Air 03/04/18 02:30 86 03/04/18 02:20 36.9 89 18 240/95 97 Room Air The patient is a well-developed, well-nourished, elderly female. She is sitting up comfortably in bed and is in no acute distress. Her daughter is at bedside. The patient is alert and fully oriented. Recent and remote memory intact. Attention and concentration normal. Patient exhibits a normal spontaneous speech pattern. She is able to name objects and repeat phrases. Patient exhibits an age-appropriate fund of knowledge a normal vocabulary. Visual paul full to confrontation. Visual acuity normal. Pupils equal round reactive to light and accommodation. Eye movements normal. There is no nystagmus. Facial sensation intact. There is no facial droop or weakness. Hearing intact to finger rub bilaterally. Palate elevates to midline. Shoulder shrug strength intact. Tongue protrudes to midline. Sensation intact to light touch, temperature, vibration, and proprioception for all 4 limbs. Deep tendon reflexes are intact and symmetrical. Plantar responses downgoing bilaterally. There is no dysdiadochokinesia or dysmetria with [id number] or heel to sánchez bilaterally. Ophthalmoscopic examination reveals normal-appearing optic discs and posterior segments. No papilledema or hemorrhages. Carotid pulses normal bilaterally, no bruits to auscultation. Gait and station normal. Muscle strength and tone normal for all 4 limbs. No atrophy. No abnormal movements observed. Laboratory Results Past 24 Hours: 03/04/18 02:35 Red Blood Count 4.55, Mean Corpuscular Volume 87.7, Mean Corpuscular Hemoglobin 30.8, Mean Corpuscular Hemoglobin Concent 35.1, Mean Platelet Volume 9.9, Neutrophils (%) (Auto) 48.6, Lymphocytes (%) (Auto) 32.0, Monocytes (%) (Auto) 7.7, Eosinophils (%) (Auto) 10.6, Basophils (%) (Auto) 0.8, Neutrophils # (Auto ) 2.88, Lymphocytes # (Auto) 1.90, Monocytes # (Auto) 0.46, Eosinophils # (Auto ) 0.63, Basophils # (Auto) 0.05 03/04/18 02:35 Test 03/04/18 02:35 03/04/18 02:40 03/04/18 03:25 White Blood Count 5.94 K/uL (4.8-10.8) Red Blood Count 4.55 M/uL (4.2-5.4) Hemoglobin 14.0 g/dL (12.0-16.0) Hematocrit 39.9 % (37-47) Mean Corpuscular Volume 87.7 fL (80-100) Mean Corpuscular Hemoglobin 30.8 pg (25-34) Mean Corpuscular Hemoglobin Concent 35.1 g/dl (32-36) Platelet Count 246 K/uL (130-400) Mean Platelet Volume 9.9 fL (7.4-10.4) Neutrophils (%) (Auto) 48.6 % Lymphocytes (%) (Auto) 32.0 % Monocytes (%) (Auto) 7.7 % Eosinophils (%) (Auto) 10.6 % Basophils (%) (Auto) 0.8 % Neutrophils # (Auto) 2.88 K/uL (1.4-6.5) Lymphocytes # (Auto) 1.90 K/uL (1.2-3.4) Monocytes # (Auto) 0.46 K/uL (0.11-0.59) Eosinophils # (Auto) 0.63 K/uL (0-0.5) Basophils # (Auto) 0.05 K/uL (0-0.2) RDW Standard Deviation 41.5 fL (36.4-46.3) RDW Coefficient of Variation 13.0 % (11.5-14.5) Immature Granulocyte % (Auto) 0.3 % Immature Granulocyte # (Auto) 0.02 K/uL (0.00-0.02) Prothrombin Time 10.0 SECONDS (9.0-12.0) Prothromb Time International Ratio 1.0 (0.9-1.1) Activated Partial Thromboplast Time 25.5 SECONDS (21.0-31.0) Partial Thromboplastin Ratio 1.0 Anion Gap 5.0 mmol/L (3-11) Est Creatinine Clear Calc Drug Dose 59.2 ml/min Estimated GFR () 88.2 Estimated GFR (Non- 76.1 BUN/Creatinine Ratio 9.6 (10-20) Estimated Average Glucose 126 mg/dl Hemoglobin A1c 6.0 % (4.5-5.6) Calcium Level 9.1 mg/dl (8.5-10.1) Magnesium Level 2.0 mg/dl (1.8-2.4) Total Bilirubin 0.4 mg/dl (0.2-1) Direct Bilirubin 0.1 mg/dl (0-0.2) Aspartate Amino Transf (AST/SGOT) 21 U/L (15-37) Alanine Aminotransferase (ALT/SGPT) 30 U/L (12-78) Alkaline Phosphatase 92 U/L (45-117) Troponin I < 0.015 ng/ml (0-0.045) Total Protein 8.1 gm/dl (6.4-8.2) Albumin 3.7 gm/dl (3.4-5.0) Thyroid Stimulating Hormone (TSH) 0.194 uIu/ml (0.300-4.500) Bedside Troponin I < 0.030 ng/ml (0-0.045) Urine Color YELLOW Urine Appearance CLEAR (CLEAR) Urine pH 5.5 (4.5-7.5) Urine Specific [place] 1.015 (1.000-1.030) Urine Protein NEG (NEG) Urine Glucose (UA) NEG (NEG) Urine Ketones NEG (NEG) Urine Occult Blood NEG (NEG) Urine Nitrite NEG (NEG) Urine Bilirubin NEG (NEG) Urine Urobilinogen NEG (NEG) Urine Leukocyte Esterase TRACE (NEG) Urine WBC (Auto) 10-30 /hpf (0-5) Urine RBC (Auto) 0-4 /hpf (0-4) Urine Hyaline Casts (Auto) 1-5 /lpf (0-5) Urine Epithelial Cells (Auto) 20-30 /lpf (0-5) Urine Bacteria (Auto) 4+ (NEG) Impression TIA like episode in the context of hypertensive urgency, chronic cerebral vascular disease, history of carotid stenosis and recent treatment for a sinus infection. Patient currently has a low-grade frontal headache. She has a history of chronic intermittent headaches for which she follows with Dr. Gonzales. I do not find any gross deficits on her neurological examination this morning. The patient has been a bit more confused recently, however, according to her daughter at bedside. I have some concern for perhaps mild cognitive impairment related to age and cerebral vascular disease. Plan Agree with MRI of the brain and carotid ultrasound as ordered. Agree with aspirin 81 milligrams per day as ordered. Continue verapamil which is likely prescribed for both her headaches and hypertension. Consider obtaining an MRA of the head and neck if there is evidence of a recent stroke or significant progression in her carotid stenosis. Continue medical management of hypertension. Outpatient follow-up with Dr. Gonzales, her regular neurologist. Please contact me if I may be of further assistance.
[2018-03-04] MEDS ORDERED: BUDESONIDE AQ (RHINOCORT AQ) NASAL SPRAY 32 MCG PRN (09:00)
[2018-03-04] MEDS: AMLODIPINE BESYLATE 5 MG TAB PO SCH (09:25)
--- NOTE | 2018-03-04 11:49 | Family Medicine Progress Note ---
Progress Note Date of Service Mar 04, 2018. Subjective Pt evaluation today including: conversation w/ patient, conversation w/ family , physical exam, chart review, lab review Pain: Denies pain PO Intake: Tolerating well Voiding: no voiding problems Patient reports she is feeling moderately better than yesterday evening. She reports a continued headache and states that the hydralazine given to her last night was the cause of it worsening. Constitutional: No fever, No chills Eyes: No worsening of vision ENT: No hearing loss Respiratory: No cough, No sputum, No wheezing Cardiovascular: No chest pain Abdomen: + vomiting (with hydralazine), No pain Musculoskeletal: + joint pain All Other Systems: Reviewed and Negative Medications Current Inpatient Medications Medications (Trade) Dose Ordered Sig/Vijaya Route Start Time Stop Time Status Last Admin Dose Admin Budesonide (Rhinocort Aq Nasal [place]) 1 sprays DAILY PRN NA 03/04/18 09:00 04/03/18 08:59 Cetirizine HCl (zyrTEC TAB) 10 mg DAILY PO 03/04/18 09:00 04/03/18 08:59 03/04/18 07:59 10 MG Clonidine HCl (Catapres Tab) 0.05 mg BID PO 03/04/18 09:00 04/03/18 08:59 03/04/18 07:59 0.05 MG Salmeterol Xinafoate/ Fluticasone (Advair Diskus 100/50 Inh) 1 puff BID INH 03/04/18 09:00 04/03/18 08:59 03/04/18 07:58 1 PUFF Guaifenesin (Organidin Nr Tab) 300 mg Q12 PO 03/04/18 09:00 04/03/18 08:59 03/04/18 08:01 300 MG Levalbuterol (Xopenex Hfa Inhaler) 2 puffs QID PRN INH 03/04/18 05:00 04/03/18 04:59 Methocarbamol (Robaxin Tab) 500 mg BID PRN PO 03/04/18 05:00 04/03/18 04:59 Oxycodone/ Acetaminophen (Percocet 5-325mg Tab) 1 tab Q6H PRN PO 03/04/18 05:00 03/18/18 04:59 03/04/18 18:42 1 TAB Verapamil HCl (Isoptin Tab) 80 mg TID PRN PO 03/04/18 05:00 04/03/18 04:59 Miscellaneous Information (Order Awaiting Action) 1 ea QS N/A 03/04/18 08:00 04/03/18 07:59 Enoxaparin Sodium (Lovenox Inj) 40 mg Q24H SC 03/04/18 09:00 04/03/18 08:59 03/04/18 08:01 40 MG Acetaminophen (Tylenol Tab) 650 mg Q4H PRN PO 03/04/18 05:00 04/03/18 04:59 03/04/18 17:50 650 MG Al Hydrox/Mg Hydrox/Simethicone (Maalox Max Susp) 15 ml Q4H PRN PO 03/04/18 05:00 04/03/18 04:59 Magnesium Hydroxide (Milk Of Magnesia Susp) 30 ml Q12H PRN PO 03/04/18 05:00 04/03/18 04:59 Ondansetron HCl (Zofran Inj) 4 mg Q6H PRN IV 03/04/18 05:00 04/03/18 04:59 03/04/18 18:42 4 MG Polyethylene (Miralax Powder Packet) 17 gm DAILY PRN PO 03/04/18 05:00 04/03/18 04:59 Aspirin (Ecotrin Tab) 81 mg QAM PO 03/04/18 09:00 04/03/18 08:59 03/04/18 08:00 81 MG Miscellaneous Information (Pharmacist Discharge Med Rec Consult) 1 ea UD PRN N/A 03/04/18 05:00 04/03/18 04:59 Miscellaneous (Iv Fluids Completed) 1 ea PRN PRN N/A 03/04/18 05:30 03/04/19 05:29 Amlodipine Besylate (Norvasc Tab) 2.5 mg QAM PO 03/04/18 09:00 04/03/18 08:59 03/04/18 09:25 2.5 MG Metoprolol Tartrate (Lopressor Tab) 12.5 mg BID PO 03/04/18 19:00 04/03/18 18:59 Objective Vital Signs Date Time Temp Pulse Resp B/P (MAP) Pulse Ox O2 Delivery O2 Flow Rate FiO2 03/04/18 16:09 36.6 79 16 197/64 (108) 97 Room Air 03/04/18 16:00 94 Room Air 03/04/18 12:00 94 Room Air 03/04/18 11:23 36.9 63 18 175/75 (108) 98 177/67 (103) 03/04/18 08:00 94 Room Air 03/04/18 07:37 36.6 85 18 172/82 (112) 94 184/85 (118) 03/04/18 06:15 78 188/78 (114) 03/04/18 06:02 36.6 18 196/87 97 Room Air 03/04/18 05:00 76 16 167/84 98 Room Air 03/04/18 04:00 85 16 163/71 99 Room Air 03/04/18 03:48 84 16 196/94 100 Room Air 03/04/18 03:20 86 20 228/87 98 Room Air 83 228/109 98 219/102 03/04/18 02:39 99 Room Air 03/04/18 02:30 86 03/04/18 02:20 36.9 89 18 240/95 97 Room Air Physical Exam General Appearance: WD/WN, no apparent distress Eyes: PERRL, EOMI ENT: hearing grossly normal Respiratory/Chest: chest non-tender, lungs clear, normal breath sounds, no respiratory distress, no accessory muscle use Cardiovascular: regular rate, rhythm, no edema, no murmur Abdomen: normal bowel sounds, non tender, soft Extremities: non-tender, normal inspection, no pedal edema, no calf tenderness Neurologic/Psychiatric: life support technician II-XII nml as tested, no motor/sensory deficits, alert, normal mood/affect, oriented x 3 Skin: normal color, warm/dry Laboratory Results Last Resulted 03/04/18 02:35 Red Blood Count 4.55, Mean Corpuscular Volume 87.7, Mean Corpuscular Hemoglobin 30.8, Mean Corpuscular Hemoglobin Concent 35.1, Mean Platelet Volume 9.9, Neutrophils (%) (Auto) 48.6, Lymphocytes (%) (Auto) 32.0, Monocytes (%) (Auto) 7.7, Eosinophils (%) (Auto) 10.6, Basophils (%) (Auto) 0.8, Neutrophils # (Auto ) 2.88, Lymphocytes # (Auto) 1.90, Monocytes # (Auto) 0.46, Eosinophils # (Auto ) 0.63, Basophils # (Auto) 0.05 Last Resulted 03/04/18 02:35 Past 24 Hours Test 03/04/18 02:35 Range/Units Prothromb Time International Ratio 1.0 0.9-1.1 Prothrombin Time 10.0 9.0-12.0 SECONDS Troponin I < 0.015 0-0.045 ng/ml Assessment and Plan 72 y/o F PMH: HTN, HLD, migraines, L carotid stenosis, CVA w/ residual LLE weakness, asthma, chronic sinusitis from dental trauma, hypothyroid. The pt presented following an episode of confusion 2 days ago which was ass'd with migraine which lasted several hours. [employer], she again reported a headache which was accompanied by nausea and vomiting and concern for dehydration 2/2 fasting for scheduled labs. On arrival to the ER her SBP was above 220. Considering her history of a CVA, episode of confusion and elevated blood pressure, she was admitted for HTN urgency and r/o of a TIA/stroke. Transient confusion/?TIA/CVA - Cannot r/o TIA: MRI brain and neurochecks, daily ASA, refuses statin, carotid ultrasound (no change from last year) - Neurology consult, appreciate recommendations. HTN urgency - ?HTN encephalopathy - BP reportedly has been running >150 SBP for several weeks, which she presumed was ideal. - States she had 2 episodes of fainting when her SBP <130. Unknown what meds she was on at that time. - Patient has had adverse reaction to hydralazine throughout day today, will DC - Given 2.5 norvasc x 2 today, tolerated well and reduced BP. - Holding current Verapamil. Reports verapamil is PRN for HTN and migraines at home; considering PMH would likely benefit from other med w/ CVD protection - Does not recall ever being on KELLY/ARB - Lisinopril 10 mg qAM added (will need f/u BMP as outpatient in 1 week) - Close outpatient follow up and titration Migraines - Continue home meds prn (aside from verapamil) - Recommend follow up with Dr. Casper Isbell for manipulative medicine on trouble areas on back of neck, spine, etc. Sinusitis - appears mild on CT - she does not have fevers or leukocytosis so that antibiotics are not likely merited at present. Reportedly chronic from previous dental trauma. Asthma - continue current inhalers Hypothyroidism - TSH is slightly oversuppressed - we have held her Synthroid, resume on DC Code: Full DVTP: Heparin Dispo: Tele Resident Physician Supervision Note: I interviewed and examined the patient. Discussed with Dr. Berumen and agree with findings and plan as documented in the note. Any exceptions or clarifications are listed here: None Documented By: Honorio Oliva feeling better after amlodipine. does get pain in neck, relates to headaches. extensive discussions with pt and dtr, solidly well over 60mins face to face in the room discussing/counselling/educating. vitals noted nad breathing unlabored no pallor or icterus L>R suboccipitals high tone/tender/decreased ROM - inhibitory pressure - improved. pt tolerated well headache/elevated blood pressure - suspect migraine / pain leading to high blood pressure rather than HTN urgency, given lack of correlation between other times her BP has been up and headaches have not ensued. also gives good hx of preceding migraine and seems to suffer from migraines frequently. uncontrolled BP - lisinopril, follow BMP. stepwise escalation of meds. discussed carefully risks/benefits of tighter control to protect from MO/CVA but also following closely for ADRs if she's tighter than she can tolerate tension headache/somatic dysfunction Cspine - OMT as above, outpt f/u w DO for ongoing OMT >60mins face to face >50% counselling/educating Resident Tracking Resident Involvement: Resident Care Provided Care Provided: Adult Hospital Medicine
--- NOTE | 2018-03-04 17:24 | DIAGNOSTIC IMAGING REPORT ---
CAROTID DOPPLER NECK ART CLINICAL HISTORY: 72 years-old Female presenting with cva. TECHNIQUE: Real-time grayscale and color and spectral Doppler ultrasound imaging of the bilateral carotid arteries was performed. NASCET criteria was used in evaluating this study. COMPARISON: 02/07/2017. FINDINGS: Right: Common carotid: Atherosclerosis at the carotid bulb. Peak systolic velocity 75 cm/s. Internal carotid artery: Atherosclerosis of the proximal ICA. Peak systolic velocity 69 cm/s. Systolic ratio: 0.9. External carotid artery: Atherosclerosis. Peak systolic velocity 180 cm/s. Left: Common carotid: Atherosclerosis at the carotid bulb. Peak systolic velocity 75 cm/s. Internal carotid artery: Atherosclerosis of the proximal ICA. Peak systolic velocity 188 cm/s. Systolic ratio: 2.5. External carotid artery: Atherosclerosis. Peak systolic velocity 246 cm/s. Bilateral antegrade flow within the vertebral arteries. Reference ranges: Stenosis measurements are compared to reference velocity parameters. Primary parameters: ICA peak systolic velocity (PSV) < 125 cm/s normal or indicating < 50% stenosis; ICA PSV 125-230 cm/s equivalent to 50-69% stenosis; ICA PSV > 230 cm/s equivalent to greater than or equal to 70% stenosis. Additional parameters: ICA PSV to common carotid artery PSV ratio < 2 normal or < 50% stenosis; 2-4 equates to 50-69% stenosis, > 4 equates to greater than or equal to 70% stenosis. Normal ICA end-diastolic velocity less than 40. Blood pressure Brachial: Right: 187/77 mmHg, Left: 202/82 mmHg. IMPRESSION: 1. Approximately 50-69% stenosis of the proximal left internal carotid artery, which is similar to prior exam. 2. Atherosclerosis. 3. Systemic hypertension. Electronically signed by: Brian Londono M.D. 03/04/2018 5:23 PM Dictated Date/Time: 03/04/2018 5:21 PM
[2018-03-04] MEDS ORDERED: AMLODIPINE BESYLATE 5 MG TAB PO ONE (17:45)
[2018-03-04] MEDS ORDERED: NURSING VERBAL MED ORDER ONE (17:45)
[2018-03-04] MEDS: METOPROLOL TARTRATE 25 MG TAB PO SCH (19:45)
--- NOTE | 2018-03-04 19:56 | DIAGNOSTIC IMAGING REPORT ---
BRAIN WITHOUT CONTRAST HISTORY: 72 years-old Female Stroke acute strokelike symptoms COMPARISON: CT head 03/04/2018, brain MRI 05/05/2014 TECHNIQUE: Multiplanar multisequence MRI of the brain was obtained without contrast. 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 There is no restricted diffusion to suggest acute or subacute infarction. Midline structures including the corpus callosum, brainstem, optic chiasm, pituitary and pineal glands are unremarkable in the sagittal T1 series. No cerebellar tonsillar herniation. Degenerative changes are noted within the imaged cervical spine. No acute intracranial hemorrhage, midline shift, abnormal extra-axial collections, hydrocephalus or intracranial mass. Extensive and confluent areas of T2/FLAIR prolongation Again noted within the white matter of the cerebral hemispheres bilaterally which has progressed from comparison study. Major flow voids at the level of the skull base appear patent. Orbits are symmetric and unremarkable. Mastoid air cells are clear. Mild mucosal thickening of the ethmoid air cells and inferior maxillary sinuses. Scalp, calvarium and soft tissues are unremarkable. IMPRESSION: 1. No acute intracranial abnormality. No evidence of acute or subacute infarction. 2. Extensive chronic microvascular ischemic changes, progressed from comparison study 05/05/2014. The above report was generated using voice recognition software. It may contain grammatical, syntax or spelling errors. Electronically signed by: Checo Barrera M.D. 03/04/2018 7:54 PM Dictated Date/Time: 03/04/2018 7:50 PM
[2018-03-05 03:21] VITALS: BP 178/77; PULSE 75
[2018-03-05] MEDS: OXYCODONE/ACETAMINOPHEN 5-325 TAB PO PRN ×2 (03:36→16:31)
[2018-03-05 06:48] LABS: BASO % 0.8 %; BASO ABS # 0.06 K/uL (0-0.2); EOS % 11.3 %; HEMATOCRIT 41.3 % (37-47); HEMOGLOBIN 14.4 g/dL (12.0-16.0); IG# 0.02 K/uL (0.00-0.02); LYMPH ABS # 1.56 K/uL (1.2-3.4); MEAN CELL VOLUME 88.2 fL (80-100); MEAN CORPUSCULAR HEMOGLOBIN 30.8 pg (25-34); MEAN CORPUSCULAR HGB CONC 34.9 g/dl (32-36); MEAN PLATELET VOLUME 10.1 fL (7.4-10.4); MONO % 8.5 %; NEUT % 57.1 %; NEUT ABS # 4.04 K/uL (1.4-6.5); PLATELET COUNT 273 K/uL (130-400); RED CELL DISTRIBUTION WIDTH CV 13.4 % (11.5-14.5); RED CELL DISTRIBUTION WIDTH SD 43.2 fL (36.4-46.3); WHITE BLOOD COUNT 7.08 K/uL (4.8-10.8)
[2018-03-05 07:10] VITALS: BP 179/80; PULSE 85; TEMP 36.5; O2SAT 94
[2018-03-05 07:18] LABS: CALCIUM 9.4 mg/dl (8.5-10.1); CREATININE 0.79 mg/dl (0.60-1.20)
[2018-03-05] MEDS ORDERED: LISINOPRIL 10 MG TAB PO SCH (08:00)
[2018-03-05] MEDS: FLUTICASONE/SALMETEROL 100/50 (ADVAIR) 14 PUFF/1 INHALER INH SCH (08:11)
[2018-03-05] MEDS: CETIRIZINE HCL 10 MG TAB PO SCH (08:12)
[2018-03-05] MEDS: METOPROLOL TARTRATE 25 MG TAB PO SCH (08:12)
[2018-03-05] MEDS: CLONIDINE HCL 0.1 MG TAB PO SCH (08:12)
[2018-03-05] MEDS: ASPIRIN 81 MG ECTAB PO SCH (08:12)
[2018-03-05] MEDS: GUAIFENESIN 200 MG TAB PO SCH (08:13)
[2018-03-05] MEDS: ENOXAPARIN 40 MG/0.4 ML SYR SC SCH ×2 (08:13→08:18)
[2018-03-05] MEDS: AMLODIPINE BESYLATE 5 MG TAB PO SCH (08:14)
[2018-03-05 10:23] VITALS: BP 130/77
[2018-03-05 12:02] VITALS: BP 116/63
[2018-03-05 15:55] VITALS: BP 116/63; PULSE 85; TEMP 36.5; O2SAT 94
[2018-03-05] MEDS ORDERED: ASPI-320 PO ×2 (15:57→17:09)
[2018-03-05] MEDS ORDERED: LPR25 PO (15:57)
[2018-03-05] MEDS ORDERED: LSN10 PO (15:57)
--- NOTE | 2018-03-05 16:19 | Discharge Instructions ---
Discharge Instructions Date of Service Mar 05, 2018. Admission Reason for Admission: Hypertensive Urgency, Tia Discharge Discharge Diagnosis / Problem: uncontrolled blood pressure, migraine headache Discharge Goals Goal(s): Diagnostic testing, Therapeutic intervention Activity Recommendations Activity Limitations: resume your previous activity . Instructions / Follow-Up Instructions / Follow-Up a) elevated blood pressure -as we discussed, with the benefit of hindsight, it does not appear that you had a TIA, and further it doesn't appear that the high blood pressure was causing your headache. conversely, it appears much more likely that your blood pressures run high because in general it needs better control, and that your headache provoked blood pressures to run even higher than you normally do. -we'll work to "rewrite" your blood pressure med regimen, slowly but steadily, to where we hopefully can get better control, less risk of heart attack or stroke, and hopefully be able to minimize chances of side effects -ideally, if you're able to tolerate it, we'll be able to best reduce your risk of heart attack or stroke if we're able to treat you to around 110/70. not everyone is able to tolerate being treated that tightly -- so we'll be keeping a close eye on you for if you develop symptoms -- common things to watch for are feeling lightheaded/weak (especially when first standing up), feeling excessively fatigued -specific to the lisinopril, a small percentage of people can develop a dry annoying cough -- if this occurs it goes away when stopping the medication; as we discussed we'll also need to have labwork checked in about a week to make sure that the medication is sitting well (basic metabolic panel) (remember as we talked, the huge majority of people this kind of medication is quite protective of kidneys, but in a small percentage, it can cause a reduction in blood flow, we see this right away with labs if it happens, and then we can stop the med and the problem goes away -- and overall it's probably about a 1 in 10,000 chance) -specific to the metoprolol, a small percentage of people could theoretically have a flare of asthma related to the blocking of [id number] hormones -- but this is highly unlikely with "selective beta blockers" like metoprolol, and in my experience, I've only seen it a handful of times, so the actual risk for this occurring is quite low -we'll want you to be seen at the office more or less weekly over the next several weeks - the goal will be to continue to follow your blood pressures, tighten control as long as you're doing ok, and change medications if you start to have any symptoms that seem to be medication side effects. over time, we'll also likely work to get rid of the clonidine in favor of "cleaner signs" (less prone to causing side effect) medications. remember that we all share the same goals - so the goal is to get blood pressure under better control to reduce your risks of strokes and heart attacks -- and with as little side effects as possible - so if things aren't sitting well, we'll want you to let us know so we can re-adjust the regimen (ie we're all on the same team, so don't be scared to talk about how things are going!) b) migraines -your migraines appear to have been a reason that your blood pressures are spiking more - it's quite common for blood pressure to spike in response to pain. it's quite likely that a migraine was what provoked the high blood pressures that caused you to get admitted -hopefully the metoprolol could reduce your frequency of migraines - if it doesn 't, there are many other things that we can do to help prevent migraines -- but for now we'll see how you do on the metoprolol -as we discussed, Dr Brandon Isbell DO will likely be able to help your headaches a good deal as well --> migraine headaches tend to create a tension headache, and then the pain from the tension headache is frequently the trigger that can cause the next migraine. By working on your neck muscles (especially the suboccipitals) as well as shoulder muscles, Dr Isbell will likely be able to make a big dent in the frequency and severity of the tension headaches, and then indirectly reduce the frequency of your migraine headaches c) thyroid -your TSH level was slightly low, suggesting that your synthroid dose might be a little high. that said, when you're acutely ill it's not at all rare for your thyroid level to be suppressed from being sick/under duress (as you were with the headache/blood pressure at the time they panfilo the lab for the thyroid test) -for now stay on the same dose, but have your levels rechecked in about a month Current Hospital Diet Patient's current hospital diet: AHA Diet (Heart Healthy) Discharge Diet Recommended Diet: AHA Diet (Heart Healthy) Pending Studies Studies pending at discharge: no Laboratory Results Hemoglobin A1c Test 03/04/18 02:35 Range/Units Estimated Average Glucose 126 mg/dl Hemoglobin A1c 6.0 H 4.5-5.6 % Lipid Panel Test 03/05/18 06:23 Range/Units Triglycerides Level 100 0-150 mg/dl Cholesterol Level 191 0-200 mg/dl HDL Cholesterol 65 mg/dl Cholesterol/HDL Ratio 2.9 LDL Cholesterol, Calculated 106 mg/dl Medical Emergencies . Who to Call and When: Medical Emergencies: If at any time you feel your situation is an emergency, please call 911 immediately. . Non-Emergent Contact Non-Emergency issues call your: Primary Care Provider (Dr Barrientos @ [facility] Family Medicine while Dr Berumen is in [place], then once she is back, start to follow with Dr Berumen) . . "Provider Documentation" section prepared by Honorio Oliva. .
[2018-03-05] MEDS ORDERED: METO25TA56 PO (17:09)
[2018-03-05] MEDS ORDERED: LISI-461 PO (17:09)
--- NOTE | 2018-03-05 23:33 | Discharge Summary ---
Discharge Summary Date of Service Mar 05, 2018. Discharge Summary Admission Date: Mar 04, 2018 at 04:58 Discharge Date: Mar 05, 2018 Discharge Disposition: Home Principal Diagnosis: Hypertension Problems/Secondary Diagnoses: HLD, migraines, L carotid stenosis, CVA w/ residual LLE weakness, asthma, chronic sinusitis from dental trauma, hypothyroidism Immunizations: Have You Had Influenza Vaccine: No History of Tetanus Vaccine?: No History of Pneumococcal: No History of Hepatitis B Vaccine: No Medication Reconciliation New Medications: Aspirin (Aspirin EC Low Dose) 81 Mg Ectab 1 TAB PO DAILY for 30 Days, #30 TAB Lisinopril (Zestril) 10 Mg Tab 10 MG PO DAILY for 30 Days, #30 TAB Metoprolol Tartrate (Lopressor) (Lopressor) 25 Mg Tab 12.5 MG PO BID for 30 Days, #30 TAB 0 Refills Continued Medications: Ascorbic Acid (Vitamin C) 500 Mg Tab 1 TAB PO DAILY B-Complex Vitamins (Vitamin B Complex) 1 Tab Tab 0.5 TAB PO TOLERATED Budesonide (Nasal) (Rhinocort Allergy) 32 Mcg/Act Teresa 1 DOSE NA UD Cetirizine (Zyrtec) 10 Mg Tab 10 MG PO DAILY, TAB Cholecalciferol (Vitamin D3) 5,000 Unit Tab 1 TAB PO DAILY Clonidine Hcl (Catapres) 0.1 Mg Tab 0.5 TAB PO BID, TAB 3 Refills with up to 2 extra tabs as needed for uncontrolled hypertension Diphenhydramine Hcl (Benadryl Allergy Children) 12.5 Mg/5 Ml Liq 12.5 MG PO DIRECTED Ergotamine W/ Caffeine (Cafergot) 1 Tab Tab 1 TAB PO DIRECTED PRN for Headache 1 tab per day as needed with no more than 3 days per week Fluticasone Prop/Salmeterol (Advair Diskus 100/50 60 Dose) 1 Ea Aerp 1 PUFFS INH DIRECTED, #1 INHALER 5 Refills Guaifenesin Ext Rel (Mucinex Ext Rel) 600 Mg Tab 300 MG PO Q12, TAB Levalbuterol Tartrate (Levalbuterol Tartrate Hfa) 45 Mcg/Act Aer 1 PUFF INH QID PRN for Shortness of Breath Levothyroxine Sodium (Synthroid) 112 Mcg Tab 112 MCG PO DAILY, TAB Methocarbamol (Robaxin) 500 Mg Tab 500 MG PO BID PRN for PRN, TAB Nitroglycerin (Nitrostat) 0.4 Mg Tab 0.4 MG UT UD PRN for Chest Pain Oxycodone/Acetaminophen 5MG/325MG (Percocet 5MG/325MG) Tab 1 TABLET PO Q6H PRN for Pain PAIN Trimethoprim (Proloprim) 100 Mg Tab 50 MG PO BID, TAB Discontinued Medications: Verapamil (Calan) 80 Mg Tab 80 MG PO TID PRN for MIGRAINE/BP ELEVATION, TAB Discharge Exam Review of Systems: Constitutional: No fever, No chills ENT: + dental problems Respiratory: No cough, No sputum Cardiovascular: No chest pain Abdomen: No nausea, No vomiting Physical Exam: General Appearance: WD/WN, no apparent distress Respiratory/Chest: chest non-tender, lungs clear, normal breath sounds Cardiovascular: regular rate, rhythm, no edema, normal peripheral pulses Abdomen / GI: normal bowel sounds, non tender, soft Hospital Course 72 y/o F PMH: HTN, HLD, migraines, L carotid stenosis, CVA w/ residual LLE weakness, asthma, chronic sinusitis from dental trauma, hypothyroid. The pt presented following an episode of confusion which was a/w migraine and lasted several hours. [employer], she again reported a headache which was accompanied by nausea and vomiting and concern for dehydration 2/2 fasting for scheduled labs. On arrival to the ER her SBP was above 220. Considering her history of a CVA, episode of confusion and elevated blood pressure, she was admitted for HTN urgency and r/o of a TIA/stroke. Transient confusion/?TIA/CVA - MRI brain: progression of microvascular changes, daily ASA, refuses statin, carotid ultrasound (no change from last year) - Recommend revisiting conversation on statin and determining "allergy" - Symptoms likely related to HTN/Migraine HTN urgency/?HTN encephalopathy - BP reportedly has been running >150 SBP for several weeks, which she presumed was ideal. Takes clonidine daily and verapamil TID prn (headaches/HTN) - States she had 2 episodes of fainting when her SBP <130. Unknown what meds she was on at that time, but we have had her BP lower here and w/o symptoms - Does not recall ever being on KELLY/ARB - Lisinopril 10 mg qAM added (will need f/u BMP as outpatient in 1 week)*, metoprolol 12.5 BID*, home clonidine (*=new) - Close outpatient follow up and titration (weekly/biweekly appts in next month) , with hopeful DC of clonidine, trial of JN stepwise meds Migraines - Continue home meds prn (aside from verapamil) - Recommend arranging follow up with Dr. Casper Isbell for manipulative medicine on trouble areas on back of neck, spine, etc. Sinusitis - appears mild on CT - she does not have fevers or leukocytosis so that antibiotics are not likely merited at present. Reportedly chronic from previous dental trauma. - Patient had previously seen Dr. Valiente but has not been in several years - Still struggling with medication allergies and consistent sinus drainage - Referral back to Dr. Valiente per patient preference as outpatient Asthma - continue current inhalers Hypothyroidism - TSH is slightly oversuppressed; held meds in hospital and resumed on discharge - Recommend recheck in 1 month Code: Full Resident Physician Supervision Note: I interviewed and examined the patient. Discussed with Dr. Berumen and agree with findings and plan as documented in the note. Any exceptions or clarifications are listed here: None Documented By: Honorio Oliva feeling ok ready to go home extensive discussion w pt and dtr on meds/planning/etc - all questiosn answered to the best of my ability headache/elevated blood pressure - suspect migraine / pain leading to high blood pressure rather than HTN urgency, given lack of correlation between other times her BP has been up and headaches have not ensued. also gives good hx of preceding migraine and seems to suffer from migraines frequently. stable for discharge, close outpt f/u uncontrolled BP - lisinopril, metoprolol. over time hopefully can wean clonidine and replace w either higher lisinopril, metoprolol or possibly adding thiazide or ARB. close outpt f/u tension headache/somatic dysfunction Cspine - OMT done 03/04, outpt f/u w DO for ongoing OMT Total Time Spent: Greater than 30 minutes This includes examination of the patient, discharge planning, medication reconciliation, and communication with other providers. Discharge Instructions Please refer to the electronic Patient Visit Report (Discharge Instructions) for additional information. Additional Copies To Leo Barrientos M.D. Resident Tracking Resident Involvement: Resident Care Provided Care Provided: [facility]
== END 2018-03-05 17:17 | disposition home or self-care (01) ==
LOC: EDBD 02:16 → C.EDB 02:17 → C.2T 04:58 → ENRESERV 05:03 → C.MS4W 20:33
PROVIDERS: ADMIT Internal Medicine; ATTEND Family Medicine
DX: I16.0 Hypertensive urgency (principal); R41.0 Disorientation, unspecified; I69.898 Other sequelae of other cerebrovascular disease; M62.81 Muscle weakness (generalized); J45.909 Unspecified asthma, uncomplicated; E78.00 Pure hypercholesterolemia, unspecified; E03.9 Hypothyroidism, unspecified; J32.9 Chronic sinusitis, unspecified; Z87.81 Personal history of (healed) traumatic fracture; Z88.1 Allergy status to other antibiotic agents; Z91.040 Latex allergy status; Z88.5 Allergy status to narcotic agent; Z88.0 Allergy status to penicillin; Z88.2 Allergy status to sulfonamides; Z91.013 Allergy to seafood; Z91.048 Other nonmedicinal substance allergy status; Z79.899 Other long term (current) drug therapy; Z79.82 Long term (current) use of aspirin

== ENCOUNTER 2018-03-22 17:51 | Emergency (ER) | payer BC, OTHER ==
[~2018-03-22] VITALS: Ht 154.9 cm; Wt 71.9 kg
[~2018-03-22 17:51] MED LIST changes: +ASPI-320 PO; -CEFACLOR PO; +GUAI1TAB55 PO; -LDXCR30; +LISI-461 PO; +METO25TA56 PO; -PSEU60TA80 PO; -VERA1TAB PO
[2018-03-22 18:05] VITALS: TEMP 36.9; Ht 154.9 cm; Wt 71.9 kg
[2018-03-22 18:26] VITALS: O2SAT 96
[2018-03-22] MEDS ORDERED: SODIUM CHLORIDE 0.9% 1000ML 1,000 ML IV STA (19:08)
--- NOTE | 2018-03-22 19:08 | EMERGENCY ROOM VISIT NOTE ---
History Report prepared by Jamari: Vernon Lechuga Under the Supervision of: Dr. Huong Melendez D.O. First contact with patient: 18:37 Chief Complaint: HYPERTENSION Stated Complaint: HIGH BP 232/113 History of Present Illness The patient is a 72 year old female who presents to the Emergency Room with complaints of an episode of hypertension occurring today. The patient states that two weeks ago, her blood pressure was high at 259/113. She notes that she took nitroglycerin with no relief of her symptoms, prompting her visit to the emergency department. She reports that she was admitted and had changes to her blood pressure medication. The patient states that she was switched to losartan , which she believes is causing her adverse side effects. She complains of weakness, left kidney pain, joint pain, nausea, vomiting, diarrhea, fever, chills, and a migraine. She notes that she started vomiting early this morning, and has not been able to keep her hypertension medication down. She reports that she was able to keep down her losartan, Lopressor, and oxycodone this morning. She denies any hematemesis and abdominal pain. The patient states that she had three episodes of diarrhea tonight, but denies any blood in her diarrhea. She notes that she also has a history of a stroke, TIAs, nodules in her lung, back pain, migraines, infections, and acid reflux. She reports that she takes two oxycodone a day for her back pain. The patient states that she also uses clonidine as a rescue, but has bad side effects to hydrazine. She denies being on any antibiotics. She notes that she has a family history of cerebral hemorrhage. Source of History: patient Onset: today Position: other (global) Quality: other (hypertension) Timing: other (an episode) Associated Symptoms: + fevers, + chills, + nausea, + vomiting, + diarrhea, + weakness, No abdominal pain Note: The patient also complains of confusion, left kidney pain, joint pain, and a migraine. She denies any hematemesis and blood in her diarrhea. Review of Systems See HPI for pertinent positives & negatives. A total of 10 systems reviewed and were otherwise negative. Past Medical & Surgical Medical Problems: (1) Acid reflux (2) Aspergillosis (3) Back pain (4) Chronic sinusitis, unspecified (5) Infection (6) Lung nodule (7) Migraine (8) Stroke (9) TIA (transient ischemic attack) (10) Unspecified asthma Family History Cerebral hemorrhage Social History Smoking Status: Never Smoker Alcohol Use: none Drug Use: none Marital Status: Occupation Status: retired Current/Historical Medications Scheduled Amlodipine Besylate (Norvasc), 2.5 MG PO DAILY Ascorbic Acid (Vitamin C), 1 TAB PO DAILY Aspirin (Aspirin Ec), 81 MG PO Q2D B-Complex Vitamins (Vitamin B Complex), 0.5 TAB PO TOLERATED Budesonide (Nasal) (Rhinocort Allergy), 1 DOSE NA DAILY Cefaclor (Cefaclor), 1 CAP PO BID Cetirizine Hcl (Zyrtec Childrens Allergy), 5 ML PO DAILY Cholecalciferol (Vitamin D3), 1 TAB PO DAILY Diphenhydramine Hcl (Benadryl Allergy Children), 12.5 MG PO DIRECTED Esomeprazole Magnesium (Esomeprazole Magnesium), 40 MG PO DAILY Flavoxate HCl (Flavoxate HCl), 100 MG PO TID Fluocinonide (Fluocinonide), 1 APPLN TOP BID Fluocinonide (Lidex 0.05% Cream), 1 APPLN TOP BID Fluticasone Prop/Salmeterol (Advair Diskus 100/50 60 Dose), 1 PUFFS INH DIRECTED Guaifenesin Ext Rel (Mucinex Ext Rel), 300 MG PO Q12 Hydrocortisone Valerate (Westcort 0.2% Oint), 1 APPLN TOP BID Levothyroxine Sodium (Synthroid), 100 MCG PO DAILY Losartan Potassium (Losartan Potassium), 25 MG PO BID Metoprolol Tartrate (Lopressor), 12.5 MG PO BID Trimethoprim (Proloprim), 50 MG PO ON HOLD Scheduled PRN Clonidine HCl (Clonidine HCl), 0.1 MG PO TID PRN for Blood Pressure Ergotamine W/ Caffeine (Cafergot), 1 TAB PO DIRECTED PRN for Headache Levalbuterol Tartrate (Levalbuterol Tartrate Hfa), 1 PUFF INH QID PRN for Shortness of Breath Methocarbamol (Robaxin), 500 MG PO BID PRN for PRN Nitroglycerin (Nitrostat), 0.4 MG UT UD PRN for Chest Pain Oxycodone/Acetaminophen 5MG/325MG (Percocet 5MG/325MG), 1 TABLET PO BID PRN for Pain Allergies Coded Allergies: Amoxicillin (Verified Allergy, Unknown, ., 03/04/18) Ampicillin (Verified Allergy, Unknown, UNKNOWN, 03/22/18) Cefixime (Verified Allergy, Unknown, ., 03/04/18) Cefuroxime (Verified Allergy, Unknown, ., 03/04/18) Cephalexin (Verified Allergy, Unknown, ., 03/04/18) Cephalosporins (Verified Allergy, Unknown, ., 03/04/18) Ciprofloxacin (Verified Allergy, Unknown, ., 03/04/18) Clarithromycin (Verified Allergy, Unknown, ., 03/04/18) Clindamycin (Verified Allergy, Unknown, ., 03/04/18) Doxycycline (Verified Allergy, Unknown, ., 03/04/18) Gabapentin (Verified Allergy, Unknown, ., 03/04/18) Latex (Verified Allergy, Unknown, ., 03/04/18) Levofloxacin (Verified Allergy, Unknown, ., 03/04/18) Lidocaine (Verified Allergy, Unknown, ., 03/04/18) Morphine and Related (Verified Allergy, Unknown, ., 03/04/18) Moxifloxacin (Verified Allergy, Unknown, ., 03/04/18) Nitrofurantoin (Verified Allergy, Unknown, ., 03/04/18) Penicillins (Verified Allergy, Unknown, ., 03/04/18) Primidone (Verified Allergy, Unknown, ., 03/04/18) Quinolones (Verified Allergy, Unknown, ., 03/04/18) Shellfish (Verified Allergy, Unknown, ., 03/04/18) Sodium Benzoate (Verified Allergy, Unknown, ., 03/04/18) Statins (Verified Allergy, Unknown, ., 03/04/18) Sulfa Antibiotics (Verified Allergy, Unknown, ., 03/04/18) Tetracycline (Verified Allergy, Unknown, ., 03/04/18) Uncoded Allergies: MENDELAMINE (Allergy, Unknown, UNKNOWN, 03/22/18) METAL (Allergy, Unknown, SEVERE REACTION, SKIN REACTION, 01/18/18) Physical Exam Vital Signs Date Time Temp Pulse Resp B/P (MAP) Pulse Ox O2 Delivery O2 Flow Rate FiO2 03/22/18 23:39 66 18 129/91 95 03/22/18 22:32 65 03/22/18 21:45 71 18 179/84 95 Room Air 03/22/18 20:31 70 217/93 03/22/18 20:09 74 18 217/93 03/22/18 19:21 220/85 03/22/18 18:26 96 Room Air 03/22/18 18:22 66 03/22/18 18:05 36.9 78 18 191/84 96 Room Air Physical Exam GENERAL: alert, well appearing, well nourished, no distress, non-toxic EYE EXAM: normal conjunctiva, PERRL and EOM's grossly intact OROPHARYNX: no exudate, no erythema, lips, buccal mucosa, and tongue normal and mucous membranes are moist NECK: supple, no nuchal rigidity, no adenopathy, non-tender LUNGS: Clear to auscultation. Normal chest wall mechanics, no w/r/r HEART: no murmurs, S1 normal and S2 normal ABDOMEN: abdomen soft, non-tender, normo-active bowel sounds, no masses, no rebound or guarding. BACK: Back is symmetrical on inspection and there is no deformity, no midline tenderness, no CVA tenderness. SKIN: no rashes and no bruising UPPER EXTREMITIES: upper extremities are grossly normal. FROM, nml pulses. LOWER EXTREMITIES: No pitting edema. FROM, nml pulses. NEURO EXAM: Normal sensorium, cranial nerves II-XII grossly intact, normal speech, no gross weakness of arms, no gross weakness of legs. Normal gait. Medical Decision & Procedures ER Provider Diagnostic Interpretation: Radiology results have been interpreted by the radiologist and reviewed by me. ABDOMEN AND PELVIS CT WITHOUT CONTRAST FINDINGS: Persistent tree-in-bud opacities with bronchial wall thickening and subsegmental consolidative opacities are seen within the medial segment of the right middle lobe with mild bronchial secretions. Patchy consolidative opacities are also noted within the lateral basal segment left lower lobe with tree-in-bud nodular opacities of the inferior segment lingula. There is no pneumatosis or pneumoperitoneum identified. Coronary arterial calcifications are noted. Limited evaluation of the solid abdominal organs without the use of IV contrast. Hepatic steatosis. Spleen, gallbladder, pancreas and adrenal glands are within normal limits. Punctate nonobstructing calculi of the superior pole left kidney. The ureters are unremarkable. Decompressed urinary bladder. Prior hysterectomy with enterocele redemonstrated. No adnexal mass lesions. Extensive calcification of the abdominal aorta without aneurysm. No bulky adenopathy. Small hiatal hernia with scattered nonenlarged lymph nodes within the herniated mesenteric fat. There is no bowel obstruction or focal bowel wall thickening. Colonic diverticulosis without diverticulitis. The appendix is not seen and may be surgically absent. Soft tissues are unremarkable. The bones appear mildly demineralized. Multilevel facet arthrosis of the lumbar spine with intervertebral disc space narrowing and endplate spurring. IMPRESSION: 1. No acute intra-abdominal or intrapelvic abnormality identified. No bowel obstruction or focal bowel wall thickening. 2. Punctate nonobstructing calculi of the superior pole left kidney. 3. Prior hysterectomy with enterocele redemonstrated. 4. Tree-in-bud opacities of the lung bases, notably within the medial segment right middle lobe with patchy consolidative opacities of the right middle lobe and lateral basal segment left lower lobe suggesting infectious bronchiolitis with pneumonitis. 5. Hepatic steatosis. 6. Small sliding-type hilar hernia. Electronically signed by: Checo Barrera M.D. 03/22/2018 8:06 PM Laboratory Results 03/22/18 18:10 Red Blood Count 4.69, Mean Corpuscular Volume 88.5, Mean Corpuscular Hemoglobin 30.3, Mean Corpuscular Hemoglobin Concent 34.2, Mean Platelet Volume 10.5, Neutrophils (%) (Auto) 74.1, Lymphocytes (%) (Auto) 13.2, Monocytes (%) (Auto) 6.9, Eosinophils (%) (Auto) 5.4, Basophils (%) (Auto) 0.2, Neutrophils # (Auto) 4.00, Lymphocytes # (Auto) 0.71, Monocytes # (Auto) 0.37, Eosinophils # (Auto) 0.29, Basophils # (Auto) 0.01 03/22/18 18:10 Test 03/22/18 18:10 03/22/18 18:40 White Blood Count 5.39 K/uL (4.8-10.8) Red Blood Count 4.69 M/uL (4.2-5.4) Hemoglobin 14.2 g/dL (12.0-16.0) Hematocrit 41.5 % (37-47) Mean Corpuscular Volume 88.5 fL (80-100) Mean Corpuscular Hemoglobin 30.3 pg (25-34) Mean Corpuscular Hemoglobin Concent 34.2 g/dl (32-36) Platelet Count 261 K/uL (130-400) Mean Platelet Volume 10.5 fL (7.4-10.4) Neutrophils (%) (Auto) 74.1 % Lymphocytes (%) (Auto) 13.2 % Monocytes (%) (Auto) 6.9 % Eosinophils (%) (Auto) 5.4 % Basophils (%) (Auto) 0.2 % Neutrophils # (Auto) 4.00 K/uL (1.4-6.5) Lymphocytes # (Auto) 0.71 K/uL (1.2-3.4) Monocytes # (Auto) 0.37 K/uL (0.11-0.59) Eosinophils # (Auto) 0.29 K/uL (0-0.5) Basophils # (Auto) 0.01 K/uL (0-0.2) RDW Standard Deviation 42.8 fL (36.4-46.3) RDW Coefficient of Variation 13.3 % (11.5-14.5) Immature Granulocyte % (Auto) 0.2 % Immature Granulocyte # (Auto) 0.01 K/uL (0.00-0.02) Prothrombin Time 10.3 SECONDS (9.0-12.0) Prothromb Time International Ratio 1.0 (0.9-1.1) Anion Gap 4.0 mmol/L (3-11) Est Creatinine Clear Calc Drug Dose 58.9 ml/min Estimated GFR () 89.6 Estimated GFR (Non- 77.3 BUN/Creatinine Ratio 11.2 (10-20) Calcium Level 9.0 mg/dl (8.5-10.1) Magnesium Level 2.0 mg/dl (1.8-2.4) Total Bilirubin 0.9 mg/dl (0.2-1) Aspartate Amino Transf (AST/SGOT) 28 U/L (15-37) Alanine Aminotransferase (ALT/SGPT) 30 U/L (12-78) Alkaline Phosphatase 79 U/L (45-117) Troponin I < 0.015 ng/ml (0-0.045) Total Protein 8.1 gm/dl (6.4-8.2) Albumin 3.8 gm/dl (3.4-5.0) Globulin 4.3 gm/dl (2.5-4.0) Albumin/Globulin Ratio 0.9 (0.9-2) Lipase 91 U/L (73-393) Thyroid Stimulating Hormone (TSH) 0.027 uIu/ml (0.300-4.500) Urine Color DK YELLOW Urine Appearance CLOUDY (CLEAR) Urine pH 5.0 (4.5-7.5) Urine Specific [place] 1.027 (1.000-1.030) Urine Protein NEG (NEG) Urine Glucose (UA) NEG (NEG) Urine Ketones 1+ (NEG) Urine Occult Blood TRACE (NEG) Urine Nitrite NEG (NEG) Urine Bilirubin NEG (NEG) Urine Urobilinogen NEG (NEG) Urine Leukocyte Esterase MODERATE (NEG) Urine WBC (Auto) >30 /hpf (0-5) Urine RBC (Auto) 5-10 /hpf (0-4) Urine Hyaline Casts (Auto) 5-10 /lpf (0-5) Urine Epithelial Cells (Auto) >30 /lpf (0-5) Urine Bacteria (Auto) 4+ (NEG) Laboratory results per my review. Medications Administered Medications (Trade) Dose Ordered Sig/Vijaya Route Start Time Stop Time Status Last Admin Dose Admin Sodium Chloride 1,000 ml @ 250 mls/hr Q4H STAT IV 03/22/18 19:08 03/22/18 23:07 DC 03/22/18 19:22 250 MLS/HR Pantoprazole Sodium 40 mg/ Syringe 10 ml @ 5 mls/min NOW ONCE IV 03/22/18 19:15 03/22/18 19:16 DC 03/22/18 20:00 5 MLS/MIN Ondansetron HCl (Zofran Inj) 4 mg NOW STAT IV 03/22/18 19:33 03/22/18 19:34 DC 03/22/18 20:00 4 MG Metoprolol Tartrate (Lopressor Iv) 5 mg NOW STAT IV 03/22/18 19:51 03/22/18 19:52 DC 03/22/18 20:31 5 MG Clonidine HCl (Catapres Tab) 0.1 mg NOW ONCE PO 03/22/18 21:30 03/22/18 21:31 DC 03/22/18 21:51 0.1 MG Ondansetron HCl (ZOFRAN ODT 4MG Home Pack) 1 homepack UD ONCE PO 03/22/18 23:30 03/22/18 23:31 DC 03/22/18 23:31 1 HOMEPACK ECG Per My Interpretation Indication: weakness Rate (beats per minute): 63 Rhythm: sinus rhythm Findings: no acute ischemic change, no ectopy, other (Normal axis, normal intervals) ED Course 1837: The patient was evaluated in room A11. A complete history and physical exam was performed. 1914: Pantoprazole Sodium 40mg/Syringe 10ml @ 5 mls/min IV 1932: Zofran Inj 4mg IV 1950: Metoprolol Tartrate 5mg IV 2020: I reevaluated the patient. She states that the only antibiotic that she can take is Cefaclor. 2030: I spoke to pharmacy who states that they do not have any Cefaclor here. 2129: Clonidine HCl 0.1mg PO 2229: Ondansetron HCl 1 homepack PO 2299: Pt feeling improved. No n/v/d. Mild headache yet, Bp improved. 2336: Upon reevaluation, the patient is feeling better. I discussed the findings and the treatment plan with the patient. She verbalizes agreement and understanding. The patient was discharged home. Medical Decision Differential diagnosis: Etiologies such as gastroenteritis, food borne illness, infections, appendicitis , diverticulitis, inflammatory bowel disease, obstruction, GI bleed, biliary pathology, as well as others were entertained. Patient anxious here with a very long complicated medical history of which she is very verbose about. Patient concerned about the vomiting and diarrhea today as well as her subsequent hypertension she was unable to take her usual medications and states blood pressure control has been a problem for her in the past. Patient recently started on losartan which she was concerned might be causing her symptoms, however during her evaluation here a family member called to report that they were also sick and so she, her daughter, and myself feel that her illness tonight may have been viral in origin given the close contact and newly sick family member. No recurrent fever while here, no elevated white blood cell count. Patient does have a history of urinary tract infections and while her UA was suboptimal, there are several markers to indicate a potential infection. Given patient's age and risk, discussed with her treatment. Patient has a long list of allergies, and states the only antibiotic she can take is ceflaclor. No evidence of bacteremia/sepsis, I do not suspect pyelonephritis or other obstructive uropathy. Patient's CAT scan otherwise unremarkable. I do not suspect acute hypertensive emergency, no other evidence of endorgan damage. I do not suspect other acute intracranial process, patient with a normal nonfocal neuro exam at bedside. I do not suspect occult vascular etiology otherwise including dissection. I do not suspect ACS. Patient's headache here she states is consistent with prior headaches related to migraines and dehydration. Patient felt improved here with medication and blood pressure improved once her usual medications were given following control of her nausea. Patient and daughter made aware of all results, need for close follow-up, symptoms to watch and return for, they verbalized understanding were agreeable with plan. Patient with a history of thyroid dysfunction and her family doctor is currently adjusting her thyroid medication. Discussed TSH level at bedside and need for close follow-up. I do not suspect thyroid storm. At time of discharge patient well-appearing, ambulating with a steady gait, tolerating p.o. at bedside. Patient had no recurrent vomiting or diarrhea while in the emergency room. Medication Reconcilliation Current Medication List: was personally reviewed by me Blood Pressure Screening Patient's blood pressure: Elevated blood pressure Blood pressure disposition: Referred to PCP Impression Primary Impression: Nausea and vomiting Additional Impressions: Diarrhea Hypertension Headache Dehydration UTI (urinary tract infection) Scribe Attestation The scribe's documentation has been prepared under my direction and personally reviewed by me in its entirety. I confirm that the note above accurately reflects all work, treatment, procedures, and medical decision making performed by me. Departure Information Dispostion Home / Self-Care Prescriptions Cefaclor (CEFACLOR) 250 Mg Cap 1 CAP PO BID for 7 Days Prov: Huong Melendez, 03/22/18 Referrals Leo Barrientos M.D. (PCP) Forms HOME CARE DOCUMENTATION FORM, IMPORTANT VISIT INFORMATION, WORK / SCHOOL INSTRUCTIONS Patient Instructions [facility] Additional Instructions Please call Sunday and follow-up with your family doctor. Please continue your regular medications as prescribed. You may use the nausea medication as needed. Please sip clear liquids at frequent intervals to stay well-hydrated. If you develop recurrent fever, recurrent vomiting, worsening diarrhea, noticed black or bloody stools, develop a worsening or unusual headache, have elevated blood pressure readings again at home, or you have any other new concerns, please return the emergency room. Problem Qualifiers Primary Impression: Nausea and vomiting Vomiting type: unspecified Vomiting Intractability: non-intractable Qualified Codes: R11.2 - Nausea with vomiting, unspecified Additional Impressions: Diarrhea Diarrhea type: unspecified type Qualified Codes: R19.7 - Diarrhea, unspecified Hypertension Hypertension type: essential hypertension Qualified Codes: I10 - Essential ( primary) hypertension Headache Headache type: unspecified Headache chronicity pattern: episodic headache Intractability: not intractable Qualified Codes: R51 - Headache UTI (urinary tract infection) Urinary tract infection type: acute cystitis Hematuria presence: with hematuria Qualified Codes: N30.01 - Acute cystitis with hematuria
[2018-03-22] MEDS ORDERED: PANTOprazole INJ 40 MG in SYRINGE 0 ML IV ONE (19:15)
[2018-03-22 19:22] LABS: BASO % 0.2 %; BASO ABS # 0.01 K/uL (0-0.2); EOS % 5.4 %; EOS ABS # 0.29 K/uL (0-0.5); HEMATOCRIT 41.5 % (37-47); HEMOGLOBIN 14.2 g/dL (12.0-16.0); IG# 0.01 K/uL (0.00-0.02); LYMPH % 13.2 %; LYMPH ABS # 0.71 K/uL (1.2-3.4); MEAN CELL VOLUME 88.5 fL (80-100); MEAN CORPUSCULAR HEMOGLOBIN 30.3 pg (25-34); MEAN CORPUSCULAR HGB CONC 34.2 g/dl (32-36); MEAN PLATELET VOLUME 10.5 fL (7.4-10.4); MONO % 6.9 %; MONO ABS # 0.37 K/uL (0.11-0.59); NEUT % 74.1 %; PLATELET COUNT 261 K/uL (130-400); RED CELL DISTRIBUTION WIDTH CV 13.3 % (11.5-14.5); RED CELL DISTRIBUTION WIDTH SD 42.8 fL (36.4-46.3); WHITE BLOOD COUNT 5.39 K/uL (4.8-10.8)
[2018-03-22] MEDS ORDERED: ONDANSETRON INJ 2 MG/ML 2 ML VIAL IV STA (19:33)
[2018-03-22 19:36] LABS: ALBUMIN 3.8 gm/dl (3.4-5.0); ALT/SGPT 30 U/L (12-78); AST/SGOT 28 U/L (15-37); BLOOD UREA NITROGEN 9 mg/dl (7-18); CARBON DIOXIDE 28 mmol/L (21-32); CREATININE 0.76 mg/dl (0.60-1.20); GLUCOSE 107 mg/dl (70-99); LIPASE 91 U/L (73-393); POTASSIUM 3.8 mmol/L (3.5-5.1); SODIUM 138 mmol/L (136-145)
[2018-03-22] MEDS ORDERED: AMLO2.5T2 PO (19:38)
[2018-03-22] MEDS ORDERED: ASPI81TA28 PO (19:39)
[2018-03-22] MEDS ORDERED: [UNRECOGNIZED DRUG - OTHER] PO (19:45)
[2018-03-22] MEDS ORDERED: CTP1 PO (19:45)
[2018-03-22 19:47] LABS: ALKALINE PHOSPHATASE 79 U/L (45-117); TOTAL PROTEIN 8.1 gm/dl (6.4-8.2)
[2018-03-22] MEDS ORDERED: METOPROLOL TARTRATE 1 MG/ML VIAL IV STA (19:51)
[2018-03-22] MEDS ORDERED: CZR25 PO (20:00)
[2018-03-22] MEDS ORDERED: LISI-461 PO (20:00)
[2018-03-22] MEDS ORDERED: [UNRECOGNIZED DRUG - CODE] PO (20:00)
[2018-03-22] MEDS ORDERED: LPR25 PO (20:00)
[2018-03-22] MEDS ORDERED: SYN100 PO (20:00)
[2018-03-22] MEDS ORDERED: ESOM1CAP34 PO (20:00)
[2018-03-22] MEDS ORDERED: CETI1SYP22 PO (20:00)
--- NOTE | 2018-03-22 20:08 | DIAGNOSTIC IMAGING REPORT ---
ABDOMEN AND PELVIS CT WITHOUT CONTRAST CT DOSE: 399.79 mGy.cm HISTORY: Acute nausea, vomiting and diarrhea with fever . History of nephrolithiasis. n/v/d, fever TECHNIQUE: Multiaxial CT images of the abdomen and pelvis were performed without contrast. A dose lowering technique was utilized adhering to the principles of ALARA. COMPARISON STUDY: CT abdomen and pelvis 06/22/2016 FINDINGS: Persistent tree-in-bud opacities with bronchial wall thickening and subsegmental consolidative opacities are seen within the medial segment of the right middle lobe with mild bronchial secretions. Patchy consolidative opacities are also noted within the lateral basal segment left lower lobe with tree-in-bud nodular opacities of the inferior segment lingula. There is no pneumatosis or pneumoperitoneum identified. Coronary arterial calcifications are noted. Limited evaluation of the solid abdominal organs without the use of IV contrast. Hepatic steatosis. Spleen, gallbladder, pancreas and adrenal glands are within normal limits. Punctate nonobstructing calculi of the superior pole left kidney. The ureters are unremarkable. Decompressed urinary bladder. Prior hysterectomy with enterocele redemonstrated. No adnexal mass lesions. Extensive calcification of the abdominal aorta without aneurysm. No bulky adenopathy. Small hiatal hernia with scattered nonenlarged lymph nodes within the herniated mesenteric fat. There is no bowel obstruction or focal bowel wall thickening. Colonic diverticulosis without diverticulitis. The appendix is not seen and may be surgically absent. Soft tissues are unremarkable. The bones appear mildly demineralized. Multilevel facet arthrosis of the lumbar spine with intervertebral disc space narrowing and endplate spurring. IMPRESSION: 1. No acute intra-abdominal or intrapelvic abnormality identified. No bowel obstruction or focal bowel wall thickening. 2. Punctate nonobstructing calculi of the superior pole left kidney. 3. Prior hysterectomy with enterocele redemonstrated. 4. Tree-in-bud opacities of the lung bases, notably within the medial segment right middle lobe with patchy consolidative opacities of the right middle lobe and lateral basal segment left lower lobe suggesting infectious bronchiolitis with pneumonitis. 5. Hepatic steatosis. 6. Small sliding-type hilar hernia. Electronically signed by: Checo Barrera M.D. 03/22/2018 8:06 PM Dictated Date/Time: 03/22/2018 7:58 PM
[2018-03-22] MEDS ORDERED: WSTO TOP (21:03)
[2018-03-22] MEDS ORDERED: FLUO0.059 TOP (21:03)
[2018-03-22] MEDS ORDERED: LDXCR30 TOP (21:03)
[2018-03-22] MEDS ORDERED: CLONIDINE HCL 0.1 MG TAB PO ONE (21:30)
[2018-03-22] MEDS ORDERED: CEFA250C PO (23:21)
[2018-03-22] MEDS ORDERED: ONDANSETRON HOME PACK 4MG OD TAB PO ONE (23:30)
[2018-03-22 23:39] VITALS: BP 129/91; PULSE 66; O2SAT 95
[2018-03-23] MEDS ORDERED: LOSARTAN POTASSIUM 25 MG TAB PO SCH (09:00)
--- NOTE | 2018-03-25 14:35 | Pharmacy Progress Note ---
ED Pharmacist Culture FollowUp Date of Service: March 25, 2018. Patient's urine culture growing Enterobacter cloacae that is resistant to bactrim, cefotazime, ceftriaxone, gentamicin and intermediate to cefepime and tobramycin. Patient has long allergy list, listed as unknown. Patient was ordered cefaclor on discharge as it is the only antibiotic she says she can take. Discussed case with Dr. De Los Santos, plan was to discontinue cefaclor, follow up what the allergies to ciprofloxacin and macrobid were. Called patient who stated she had just talked to Dr. Barrientos as well and had a copy of the urine culture via her daughter who was here today. Asked her allergies to ciprofloxacin described as nausea/swelling of back of throat and nitrofurantoin which included severe fatigue, unable to move. Patient said she was going to call Dr. Isbell her urologist. Initially told patient to discontinue cefaclor and would follow-up. Discussed again with Dr. De Los Santos and Dr. Barrientos who was in the ED. Again recommended that cefaclor be discontinued as likely would not cover- other possible option fosfomycin. Dr. Lepe wanted the cefaclor to be continued. Patient is to be seen by him on Sunday. Called patient back and told her to continue the cefaclor until she is seen on Sunday/Dr. Lucero may continue medication further at that time and also to follow up with Dr. Isbell. Patient demonstrated understanding
== END 2018-03-22 23:41 | disposition home or self-care (01) ==
LOC: C.EDB 17:53 → C.EDA 23:41
DX: R11.2 Nausea with vomiting, unspecified (principal); R19.7 Diarrhea, unspecified; I10 Essential (primary) hypertension; G43.909 Migraine, unspecified, not intractable, without status migrainosus; E86.0 Dehydration; N39.0 Urinary tract infection, site not specified; R53.1 Weakness; M25.50 Pain in unspecified joint; Z86.73 Personal history of transient ischemic attack (TIA), and cerebral infarction without residual deficits; Z79.891 Long term (current) use of opiate analgesic; Z79.899 Other long term (current) drug therapy; Z79.82 Long term (current) use of aspirin; Z88.0 Allergy status to penicillin; Z88.1 Allergy status to other antibiotic agents; Z88.6 Allergy status to analgesic agent; Z88.8 Allergy status to other drugs, medicaments and biological substances; Z91.013 Allergy to seafood; Z88.2 Allergy status to sulfonamides; Z91.048 Other nonmedicinal substance allergy status

== ENCOUNTER → 2018-03-26 | Outpatient (CLI) | payer BC, OTHER ==
[~2018-03-26] MED LIST changes: +AMLO2.5T2 PO; -ASPI-320 PO; +ASPI81TA28 PO; +CEFA250C PO; -CETI10TA84 PO; +CETI1SYP22 PO; -CLON0.1T12 PO; +CTP1 PO; +CZR25 PO; +ESOM1CAP34 PO; +FLUO0.059 TOP; +LDXCR30 TOP; -LEVO112T2 PO; -LISI-461 PO; +LPR25 PO; -METO25TA56 PO; +SYN100 PO; +WSTO TOP; +[UNRECOGNIZED DRUG - CODE] PO
== END | disposition home or self-care (01) ==
LOC: C.LABSPEC 17:30
PROVIDERS: ATTEND Urology
DX: R32 Unspecified urinary incontinence (principal); N39.0 Urinary tract infection, site not specified

== ENCOUNTER → 2018-06-06 | Outpatient (CLI) | payer BC, OTHER ==
[~2018-06-06] MED LIST changes: -AMLO2.5T2 PO; +CALC1WAF; -CZR25 PO; +LEVO88TA3 PO; +ONDA4TAB46 PO; -SYN100 PO
[2018-06-06 12:59] LABS: ALBUMIN 4.1 gm/dl (3.4-5.0); ALKALINE PHOSPHATASE 90 U/L (45-117); ALT/SGPT 31 U/L (12-78); AST/SGOT 32 U/L (15-37); BLOOD UREA NITROGEN 9 mg/dl (7-18); CALCIUM 9.3 mg/dl (8.5-10.1); CARBON DIOXIDE 29 mmol/L (21-32); CHOLESTEROL 200 mg/dl (0-200); CREATININE 0.79 mg/dl (0.60-1.20); GLUCOSE 96 mg/dl (70-99); LDL CHOLESTEROL CALCULATED 105 mg/dl; POTASSIUM 4.3 mmol/L (3.5-5.1); SODIUM 138 mmol/L (136-145); TOTAL PROTEIN 8.3 gm/dl (6.4-8.2)
== END | disposition home or self-care (01) ==
LOC: C.LAB 09:38
PROVIDERS: ATTEND Internal Medicine Cardiovascular Disease
DX: I25.10 Atherosclerotic heart disease of native coronary artery without angina pectoris (principal); E78.5 Hyperlipidemia, unspecified

== ENCOUNTER 2019-12-05 12:16 | Inpatient (IN) ==
[2019-12-05] MEDS ORDERED: ACETAMINOPHEN 1,000 MG/100 ML VIAL IV STA (12:18)
[2019-12-05 12:43] LABS: Appearance Urine Clear (Clear); Bilirubin Urine Negative (Negative); Blood Urine Negative (Negative); Color Urine Yellow; Glucose Urine UA Negative (Negative); Ketones Urine Negative (Negative); Leukocyte Esterase Urine Negative (Negative); Nitrite Urine Negative (Negative); Protein Urine Negative (Negative); Urobilinogen Urine Negative (Negative); pH Urine 6.5 (4.5-7.5)
[2019-12-05 12:48] LABS: Basophils # (auto) 0.03 K/uL (0-0.2); Basophils % (auto) 0.3 %; Eosinophils # (auto) 0.45 K/uL (0-0.5); Hematocrit (blood only) 42.7 % (37-47); Hemoglobin 14.5 g/dL (12.0-16.0); Immature Granulocytes # (auto) 0.03 K/uL (0.00-0.02); Immature Granulocytes % (auto) 0.3 %; Lymphocytes # (auto) 1.67 K/uL (1.2-3.4); Mean Corpuscular Hemoglobin 30.5 pg (25-34); Mean Corpuscular Volume 89.9 fL (80-100); Mean Platelet Volume 10.9 fL (7.4-10.4); Monocytes # (auto) 0.69 K/uL (0.11-0.59); Monocytes % (auto) 6.2 %; Neutrophils # (auto) 8.29 K/uL (1.4-6.5); Neutrophils % (auto) 74.2 %; Platelet Count 296 K/uL (130-400); RDW Coefficient of Variation 12.8 % (11.5-14.5); Red Blood Count 4.75 M/uL (4.2-5.4); White Blood Count 11.16 K/uL (4.8-10.8)
[2019-12-05 13:03] LABS: INR 1.1 (0.9-1.1); Partial Thromboplastin Time 26.8 Seconds (21.0-31.0); Prothrombin Time 10.8 Seconds (9.0-12.0)
[2019-12-05 13:05] LABS: Alanine Aminotransferase 19 U/L (12-78); Albumin Level 3.8 gm/dl (3.4-5.0); Aspartate Aminotransferase 22 U/L (15-37); BUN Creatinine Ratio 9.4 (10-20); Blood Urea Nitrogen 7 mg/dl (7-18); Calcium 9.3 mg/dl (8.5-10.1); Carbon Dioxide 28 mmol/L (21-32); Chloride 106 mmol/L (98-107); Creatinine Clr Calc Pharmacy 54.7 ml/min; Est GFR (African American) 85.6; Est GFR (Non-African American) 73.8; Glucose 110 mg/dl (70-99); Lipase 168 U/L (73-393); Potassium 3.6 mmol/L (3.5-5.1); Sodium 139 mmol/L (136-145)
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
[2019-12-05 13:10] LABS: Alkaline Phosphatase 88 U/L (45-117); Bilirubin,Total 0.8 mg/dl (0.2-1); Total Protein 7.8 gm/dl (6.4-8.2); Troponin I < 0.015 ng/ml (0-0.045)
--- NOTE | 2019-12-05 13:52 | XRay Report ---
SINGLE VIEW CHEST CLINICAL HISTORY: Fall. FINDINGS: An AP, portable, supine chest radiograph is compared to study dated 11/22/2019. The examinati on is degraded by portable technique and patient rotation. The cardiomediastinal silhouette is unrema rkable noting atherosclerotic calcification of the thoracic aorta. The lungs and pleural spaces are c lear. No pneumothorax is seen. The skeletal structures are osteopenic. The bony thorax is grossly int act. IMPRESSION: No active disease in the chest. ACT 112: Negative or not required by law. Electronically signed by: Quintin Coleman M.D. 12/05/2019 1:50 PM
--- NOTE | 2019-12-05 13:53 | XRay Report ---
XR hip RT 2V w pelvis CLINICAL HISTORY: fall trauma. Pain. COMPARISON: None. DISCUSSION: Probable subcapital fracture right hip. Slight impaction. No evidence dislocation. There is no evidence for soft tissue swelling. IMPRESSION: Probable subcapital fracture right hip. ACT 112: Negative or not required by law. The above report was generated using voice recognition software. It may contain grammatical, syntax or spelling errors. Electronically signed by: Leo Jorge M.D. 12/05/2019 1:51 PM
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
--- NOTE | 2019-12-05 15:29 | CT Scan Report ---
CT hip RT wo con CT DOSE: 303.05 mGy.cm HISTORY: Trauma fall TECHNIQUE: Multiaxial CT images of the right hip were performed and reformatted in the sagittal and c oronal plane without the use of contrast. A dose lowering technique was utilized adhering to the carmen Heaton. COMPARISON: None. FINDINGS: Subcapital fracture right hip. Slight impaction. No evidence for dislocation. Mild surrounding soft tissue edematous change. Remaining bony structures are intact. IMPRESSION: 1. Subcapital fracture right hip. 2. Slight impaction. 3. No evidence for dislocation. ACT 112: Negative or not required by law. The above report was generated using voice recognition software. It may contain grammatical, syntax or spelling errors. Electronically signed by: Leo Jorge M.D. 12/05/2019 3:27 PM
[2019-12-05] MEDS ORDERED: OXYCODONE/ACETAMINOPHEN 5mg/325mg TAB PO STA (15:41)
[2019-12-05] MEDS ORDERED: ONDANSETRON INJ 2 MG/ML 2 ML VIAL IV PRN (16:45)
[2019-12-05] MEDS ORDERED: NITROGLYCERIN SL 0.4 MG/TAB TAB SL PRN (16:45)
[2019-12-05] MEDS ORDERED: MAGNESIUM HYDROXIDE SUSP 30 ML UDC PO PRN (16:45)
[2019-12-05] MEDS ORDERED: VERAPAMIL HCL 40 MG TAB PO SCH (16:45)
[2019-12-05] MEDS ORDERED: cloNIDine HCL 0.1 MG TAB PO SCH (16:45)
[2019-12-05] MEDS ORDERED: ASCORBIC ACID 500 MG TAB PO PRN (16:45)
[2019-12-05] MEDS ORDERED: ONDANSETRON 4 MG TAB PO PRN (16:45)
[2019-12-05] MEDS ORDERED: CETIRIZINE HCL 10 MG TABLET PO PRN (16:45)
[2019-12-05] MEDS ORDERED: LEVALBUTEROL TARTRATE 15 GM HFA.AER.AD INH PRN (16:45)
[2019-12-05] MEDS ORDERED: METHOCARBAMOL 500 MG TABLET PO PRN (16:45)
[2019-12-05] MEDS ORDERED: diphenhydrAMINE HCl 12.5 MG/5 ML UDC PO PRN (16:59)
--- NOTE | 2019-12-05 17:00 | Electrocardiogram Report ---
Test Reason : Blood Pressure : / mmHG Vent. Rate : 061 BPM Atrial Rate : 061 BPM P-R Int : 160 ms QRS Dur : 094 ms QT Int : 434 ms P-R-T Axes : -10 021 028 degrees QTc Int : 436 ms Normal sinus rhythm Normal ECG When compared with ECG of 22-MAR-2018 18:24, No significant change was found Confirmed by Peter Blanton ([id number]) on 12/05/2019 5:00:33 PM Referred By: Confirmed By:Peter Blanton
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
[2019-12-05] MEDS: VERAPAMIL 80 MG PO SCH (21:36)
[2019-12-05] MEDS: CLONIDINE HCL 0.1 MG PO SCH (21:38)
[2019-12-05] MEDS: OXYCODONE/ACETAMINOPHEN 5mg/325mg TAB PO PRN (21:44)
[2019-12-05] MEDS: BUDESONIDE AQ (RHINOCORT AQ) NASAL SPRAY 32 MCG SCH (21:52)
[2019-12-06] MEDS ORDERED: LEVOTHYROXINE SODIUM 100 MCG TABLET PO SCH ×2 (06:00→06:30)
[2019-12-06] MEDS: CLONIDINE HCL 0.1 MG PO SCH ×3 (06:06→22:19)
[2019-12-06] MEDS: VERAPAMIL 80 MG PO SCH ×3 (06:06→22:18)
[2019-12-06] MEDS: OXYCODONE/ACETAMINOPHEN 5mg/325mg TAB PO PRN ×3 (06:12→23:42)
[2019-12-06 08:58] LABS: BUN Creatinine Ratio 13.1 (10-20); Calcium 9.4 mg/dl (8.5-10.1); Creatinine Clr Calc Pharmacy 56.9 ml/min; Est GFR (African American) 89.7; Est GFR (Non-African American) 77.4; Potassium 3.6 mmol/L (3.5-5.1)
[2019-12-06 09:08] LABS: Thyroid Stimulating Hormone 0.272 uIu/ml (0.300-4.500)
[2019-12-06] MEDS: BUDESONIDE AQ (RHINOCORT AQ) NASAL SPRAY 32 MCG SCH ×2 (10:50→20:41)
[2019-12-06] MEDS: ACETAMINOPHEN 325 MG TAB PO PRN (10:54)
[2019-12-06] MEDS: NON-FORMULARY PATIENT'S OWN MED PO SCH ×2 (13:19→13:58)
--- NOTE | 2019-12-06 14:22 | Hospitalist Progress Note ---
Date of Service December 06, 2019 Assessment & Plan (1) Subcapital fracture of right hip: * CT of RIGHT hip with subcapital fracture, suspected on previous xray * Ortho consult -- appreciate input * After patient/daughter discussion with family and our conversation today, planning for conservative treatment at this time given multiple metal/medication/abx allergies * Plan for SNF placement for 3-4 weeks with hopes of healing -- patient and daughter would like ref sent to [facility] * Will need serial xrays to determine healing * Of note, if head of femur displaced further in the future would need specialty ceramic head replacement at tertiary facility * Able to tolerate oxycodone/acetaminophen however patient tolerating pain with tylenol alone (2) Fall: * Purely mechanical * PT/OT pending * Will need SNF for 3-4 weeks of bedrest with likely need for acute inpatient rehab following healing of fx (3) UTI (urinary tract infection): * Recent Ecoli UTI * Finished 7 day course of ertapenem on 12/02 -- hx of multiple abx allergies * Follows with Dr. Xavier * UA neg in ED * Continue home flavoxate (4) Hypothyroidism: * Chronic. * TSH low at 0.272, FT4 elevated at 1.81 * Will decrease morning dose to 88mcg -- will need outpatient follow up, repeat TFT in 4-6 weeks (5) Labile hypertension: * Hx Labile HTN. Chronic. Stable. 147/74 * Continue home clonidine (6) Asthma: * Continue home budesonide, levalbuterol Q6 prn (7) Vitamin D deficiency: * Continue home vit D 5,000 IU daily (8) Vitamin B12 deficiency: * Hx B12 deficiency. B12 back this afternoon at 289, low normal. * Would consider addition of supplementation but will discuss with patient prior to initiating (9) Dyslipidemia: * Hx of. Unable to tolerate statins (10) DVT prophylaxis: * SCDs * Will avoid chemical prophylaxis at this time, as patient states she has been intolerant to ASA, NSAIDs and heparin products that have caused bleeding -- will be at increased risk given plan for bedrest for next 3-4 weeks Dispo: patient will need SNF for discharge Supervising Physician Co-Signing Physician Notes PA Supervision Note: I did not personally see or examine the patient today, but I verified all jansen points of REJI Holly's assessment and plan with the following exceptions/additions: None Subjective Patient evaluated in bed with daughter at bedside this morning. Pain tolerable with tylenol. Denies any need for ice. States she was getting up from her kitchen table when she fell and smacked into metal chair to her right hip. Extensive history of allergies to metal, antibiotics, and latex, among other, w hich complicates decision to move forward with any kind of repair. Initially, patient's daughter stated her mother was very depressed and felt almost hopeless and the situation, but after discussion of possible plan to keep bedrest and hope for healing vs transfer to another facility to see about possibility of different material screws. To further their concern regarding foreign material in her body regarding screws/nails, the patient states she has a long history of vaginal prolapse and had been following with Dr Isbell as an outpatient and he has been amazing at exhausting all possible materials for pessary placement with the most recent experience seeming like it was going to work before her trip to go shopping with her daughter in [place]. She states that within ten minutes of placing it, using surgical lube to prevent any reaction, she started to get red in the face and start swelling up. For this reason, they have elected to pursue conservative treatment at this time. Concerns for getting on and off of bedpan given that she will have significant restrictions to promote healing of her hip. There is also concern regarding increased risk for developing UTI, as patient has just completed 7 day course of Ertapenem per ID for Ecoli UTI due to extensive antibiotic allergies. Was supposed to have UA on Sunday to test for clearance of infection. Would like to go to [facility] if possible as their choice for SNF, as they had good experience in the past with other family and hospice. Daughter states she was told my ortho that they recommend a air mattress for when she is at the nursing facility. Denies any current chest pain, shortness of breath, dysuria or hematuria, abdominal pain, n/v/d. Review of Systems Review of Systems: All systems reviewed & are unremarkable except as noted in HPI & below Constitutional: no fever and no chills Eyes: no diplopia and no problem reported Ear, Nose, Mouth, Throat: no sore throat and no dysphagia Respiratory: no cough and no dyspnea Cardiovascular: no chest pain and no palpitations Gastrointestinal: no abdominal pain, no nausea, no vomiting and no constipation Genitourinary: no dysuria and no urinary frequency Musculoskeletal: no back pain and no neck pain Right hip pain Integumentary: no rash and no lesions Physical Exam Constitutional: WD/WN, vitals as above no acute distress Eyes: + anicteric sclerae and PERRL Neck: trachea midline, no thyromegaly Respiratory: normal respiratory effort, lungs clear to auscultation Cardiovascular: RRR, no murmur, no edema Gastrointestinal (Abdomen): normal bowel sounds, soft, nontender, no hepatosplenomegaly Musculoskeletal: Head/Neck/Chest: normocephalic and head atraumatic Extremities: strength 5/5 throughout Skin: no rashes, warm and dry ecchymosis of right lateral aspect of hip, 4cm in length, 1cm wide Minimally tender Neurologic: PERRL, EOMI, accommodation nl, no face palsy, no dysarthria Psychiatric: A+Ox3, euthymic affect Results & Data Vital Signs (Past 12 Hours) Vital Signs Temp Pulse Resp BP Pulse Ox 12/06/19 07:18 36.8 C 72 14 145/75 H 92 12/06/19 06:13 148/68 H Laboratory Results 12/06/19 12/06/19 12/06/19 Range/Units 08:22 08:22 08:22 Sodium 136 (136-145) mmol/L Potassium 3.6 (3.5-5.1) mmol/L Chloride 103 (98-107) mmol/L Carbon Dioxide 26 (21-32) mmol/L Anion Gap 6.0 (3-11) BUN 10 (7-18) mg/dl Creatinine 0.75 (0.6-1.2) mg/dl Est Cr Clr Drug Dosing 56.9 ml/min Est GFR ( Amer) 89.7 Est GFR (Non-Af Amer) 77.4 BUN/Creatinine Ratio 13.1 (10-20) Glucose 135 H (70-99) mg/dl Calcium 9.4 (8.5-10.1) mg/dl Vitamin B12 289 (211-911) pg/ml TSH 0.272 L (0.300-4.500) uIu/ml Free T4 1.81 H (0.8-1.6) ng/dl PG Care Time/CCT Total # of Minutes Spent Total Time Spent with Patient: Total time spent is greater than 50% in coordination of care (as documented) at patient's floor/unit and/or counseling patient: (1) Subcapital fracture of right hip Encounter type: initial encounter Fracture type: closed Qualified Code(s): S72.011A - Unspecified intracapsular fracture of right femur, initial encounter for closed fracture (2) Fall Encounter type: initial encounter Qualified Code(s): W19.XXXA - Unspecified fall, initial encounter
[2019-12-06] MEDS ORDERED: guaiFENesin 600 MG TABCR PO SCH (21:00)
[2019-12-06] MEDS: GUAIFENESIN PO SCH (22:18)
[2019-12-07] MEDS: NON-FORMULARY PATIENT'S OWN MED PO SCH (05:55)
[2019-12-07] MEDS: CLONIDINE HCL 0.1 MG PO SCH ×3 (05:56→22:19)
[2019-12-07] MEDS: VERAPAMIL 80 MG PO SCH ×3 (05:59→22:19)
[2019-12-07] MEDS ORDERED: LEVOTHYROXINE SODIUM 88 MCG TABLET PO SCH (06:00)
[2019-12-07] MEDS: LEVOTHYROXINE SODIUM 88 MCG TABLET PO SCH (06:14)
[2019-12-07 06:20] LABS: Hematocrit (blood only) 40.1 % (37-47); Hemoglobin 13.5 g/dL (12.0-16.0); Mean Corpuscular Hemoglobin 30.1 pg (25-34); Mean Corpuscular Hgb Conc 33.7 g/dL (32-36); Mean Corpuscular Volume 89.3 fL (80-100); Mean Platelet Volume 11.3 fL (7.4-10.4); Platelet Count 219 K/uL (130-400); RDW Coefficient of Variation 12.8 % (11.5-14.5); RDW Standard Deviation 41.3 fL (36.4-46.3); Red Blood Count 4.49 M/uL (4.2-5.4); White Blood Count 7.64 K/uL (4.8-10.8)
[2019-12-07] MEDS: OXYCODONE/ACETAMINOPHEN 5mg/325mg TAB PO PRN ×3 (06:22→21:41)
[2019-12-07] MEDS ORDERED: CHOLECALCIFEROL 1,000 UNITS 25 MCG TAB PO SCH (09:00)
[2019-12-07] MEDS: BUDESONIDE AQ (RHINOCORT AQ) NASAL SPRAY 32 MCG SCH ×2 (09:04→22:18)
--- NOTE | 2019-12-07 15:59 | Hospitalist Progress Note ---
Date of Service December 07, 2019 Assessment & Plan (1) Subcapital fracture of right hip: * CT of RIGHT hip with subcapital fracture, suspected on previous xray * Ortho consult -- appreciate input * After patient/daughter discussion with family and our conversation today, planning for conservative treatment at this time given multiple metal/medication/abx allergies * Plan for SNF placement for 3-4 weeks with hopes of healing -- patient and daughter would like ref sent to [facility] -- per conversation with CM, ref sent to [facility] as well as [facility] - should hear back tomorrow * Will need serial xrays to determine healing * Of note, if head of femur displaced further in the future would need specialty ceramic head replacement at tertiary facility * Able to tolerate oxycodone/acetaminophen, however patient tolerating pain with tylenol alone. Methocarbamol prn (2) Fall: * Purely mechanical * PT/OT pending * Will need SNF for 3-4 weeks of bedrest with likely need for acute inpatient rehab following healing of fx (3) UTI (urinary tract infection): * Recent Ecoli UTI * Finished 7 day course of ertapenem on 12/02 -- hx of multiple abx allergies * Follows with Dr. Xavier * UA neg in ED * Continue home flavoxate * Would avoid repeat UA unless patient develops symptoms -- patient states her typical symptoms are fatigue followed quickly by urgency. Per outpatient urology notes, patient likely with interstitial cystitis (4) Hypothyroidism: * Chronic. * TSH low at 0.272, FT4 elevated at 1.81 * Decreased morning dose to 88mcg -- will need outpatient follow up, repeat TFT in 4-6 weeks. Patient states her dose was adjusted to 100mcg back in July. Could consider alternating or doing 100mcg six days a week (5) Labile hypertension: * Hx Labile HTN. Chronic. Stable. 135/67 * Continue home clonidine (6) Asthma: * Continue home budesonide, levalbuterol Q6 prn * Patient with post nasal drip --> Per patient, had previously been using advair -- will resume -- will need to monitor for thrush, as patient believes last episode to be contributed to her levalbuterol. I explained that thrush moreso likely to occur from Advair, and she will need to rinse her mouth after use. (7) Vitamin D deficiency: * Continue home vit D 5,000 IU daily (8) Vitamin B12 deficiency: * Hx B12 deficiency. B12 back this afternoon at 289, low normal. * After conversation with patient and daughter this morning, patient had previously trialed B12 drops -- patient's daughter to bring in to resume as patient with adverse experience to pill/injection B12 of mental fog and headache (9) Dyslipidemia: * Hx of. Unable to tolerate statins (10) DVT prophylaxis: * SCDs * Will avoid chemical prophylaxis at this time, as patient states she has been intolerant to ASA, NSAIDs and heparin products that have caused bleeding -- will be at increased risk for DVT given plan for bedrest for next 3-4 weeks Dispo: hopeful for discharge [facility] [place] pending insurance auth/bed availability. Ref sent to [facility] as well. Will need 3-4 weeks BR, serial xrays at discretion of ortho, and likely rehab following. Supervising Physician Co-Signing Physician Notes REJI Supervision Note: I did not personally see or examine the patient today, but I verified all jansen points of REJI Holly's assessment and plan with the following exceptions/additions: As far as DVT prophylaxis-she will be at high risk-should consider trial of Xarelto if willing although has noted easy bleeding in the past Subjective Patient evaluated this morning with sister and daughter at bedside. Discussed at length plan moving forward with conservative treatment. No repeat UA unless symptomatic. Encourage incentive spirometry. Patient states she had increased frequency of use. Denies any shortness of breath, chest pain, fever, chills, nausea, vomiting, abdominal pain at this time. Review of Systems Review of Systems: All systems reviewed & are unremarkable except as noted in HPI & below Physical Exam Constitutional: WD/WN, vitals as above no acute distress Eyes: + anicteric sclerae and PERRL Neck: trachea midline, no thyromegaly Respiratory: normal respiratory effort, lungs clear to auscultation Cardiovascular: RRR, no murmur, no edema Gastrointestinal (Abdomen): normal bowel sounds, soft, nontender, no hepatosplenomegaly Musculoskeletal: Head/Neck/Chest: normocephalic and head atraumatic Extremities: strength 5/5 throughout Skin: no rashes, warm and dry Neurologic: PERRL, EOMI, accommodation nl, no face palsy, no dysarthria Psychiatric: A+Ox3, euthymic affect Results & Data Vital Signs (Past 12 Hours) Vital Signs Temp Pulse Resp BP BP Pulse Ox 12/07/19 15:12 37.8 C H 87 17 135/67 94 12/07/19 07:18 36.7 C 82 16 128/71 90 12/07/19 06:02 170/74 H Laboratory Results 12/07/19 Range/Units 05:25 WBC 7.64 (4.8-10.8) K/uL RBC 4.49 (4.2-5.4) M/uL Hgb 13.5 (12.0-16.0) g/dL Hct 40.1 (37-47) % MCV 89.3 (80-100) fL MCH 30.1 (25-34) pg MCHC 33.7 (32-36) g/dL RDW Std Deviation 41.3 (36.4-46.3) fL RDW Coeff of Ashley 12.8 (11.5-14.5) % Plt Count 219 (130-400) K/uL MPV 11.3 H (7.4-10.4) fL PG Care Time/CCT Total # of Minutes Spent Total Time Spent with Patient: Total time spent is greater than 50% in coordination of care (as documented) at patient's floor/unit and/or counseling patient: (1) Subcapital fracture of right hip Encounter type: initial encounter Fracture type: closed Qualified Code(s): S72.011A - Unspecified intracapsular fracture of right femur, initial encounter for closed fracture (2) Fall Encounter type: initial encounter Qualified Code(s): W19.XXXA - Unspecified fall, initial encounter
[2019-12-07] MEDS: FLUTICASONE/VILANTEROL 200/25MCG 14 PUFFS/INHALER INH SCH (18:46)
[2019-12-07] MEDS ORDERED: CETIRIZINE HCL 10 MG TABLET PO PRN (21:00)
[2019-12-07] MEDS: GUAIFENESIN PO SCH (22:18)
[2019-12-07] MEDS: CETIRIZINE PO PRN (23:41)
[2019-12-08] MEDS: OXYCODONE/ACETAMINOPHEN 5mg/325mg TAB PO PRN ×3 (05:25→23:21)
[2019-12-08] MEDS: LEVOTHYROXINE SODIUM 88 MCG TABLET PO SCH (05:27)
[2019-12-08 05:38] LABS: Basophils # (auto) 0.02 K/uL (0-0.2); Basophils % (auto) 0.3 %; Eosinophils # (auto) 0.73 K/uL (0-0.5); Eosinophils % (auto) 9.5 %; Hematocrit (blood only) 39.2 % (37-47); Hemoglobin 13.3 g/dL (12.0-16.0); Immature Granulocytes # (auto) 0.02 K/uL (0.00-0.02); Immature Granulocytes % (auto) 0.3 %; Lymphocytes % (auto) 23.4 %; Mean Corpuscular Hemoglobin 30.6 pg (25-34); Mean Corpuscular Hgb Conc 33.9 g/dL (32-36); Mean Corpuscular Volume 90.3 fL (80-100); Mean Platelet Volume 11.3 fL (7.4-10.4); Monocytes # (auto) 1.05 K/uL (0.11-0.59); Monocytes % (auto) 13.6 %; Neutrophils # (auto) 4.08 K/uL (1.4-6.5); Neutrophils % (auto) 52.9 %; Platelet Count 224 K/uL (130-400); RDW Coefficient of Variation 12.8 % (11.5-14.5); RDW Standard Deviation 42.4 fL (36.4-46.3); Red Blood Count 4.34 M/uL (4.2-5.4)
[2019-12-08] MEDS: CLONIDINE HCL 0.1 MG PO SCH ×3 (06:04→21:54)
[2019-12-08] MEDS: VERAPAMIL 80 MG PO SCH ×2 (06:04→13:21)
[2019-12-08 06:13] LABS: BUN Creatinine Ratio 18.9 (10-20); Calcium 8.8 mg/dl (8.5-10.1); Creatinine Clr Calc Pharmacy 68.8 ml/min; Est GFR (African American) 101.5; Est GFR (Non-African American) 87.6
[2019-12-08] MEDS ORDERED: HYDROCORTISONE TOP PRN (08:00)
[2019-12-08] MEDS: BUDESONIDE AQ (RHINOCORT AQ) NASAL SPRAY 32 MCG SCH ×2 (08:58→21:54)
[2019-12-08] MEDS: FLUTICASONE/VILANTEROL 200/25MCG 14 PUFFS/INHALER INH SCH (08:58)
[2019-12-08] MEDS: VITAMIN D3: NON-FORMULARY PATIENT'S OWN MED PO SCH (08:58)
[2019-12-08] MEDS ORDERED: HYDROCORTISONE TOP SCH (09:00)
--- NOTE | 2019-12-08 15:17 | Hospitalist Progress Note ---
Date of Service December 08, 2019 Assessment & Plan (1) Subcapital fracture of right hip: * CT of RIGHT hip with subcapital fracture, suspected on previous xray * Ortho consult -- appreciate input * patient and family wish for conservative care because of h/o difficult intubation, difficulties with anesthesia as well as multiple allergies to metals * will need placed at SNF for 3 weeks of bedrest this will be difficult because she will not be able to go under skilled care since there will not be rehab potential * Will need serial xrays to determine healing * Of note, if head of femur displaced further in the future would need specialty ceramic head replacement at tertiary facility * Able to tolerate oxycodone/acetaminophen, however patient tolerating pain with tylenol alone CM working on placement issues (2) Fall: * Purely mechanical * PT/OT: really she cannot participate due to complete bedrest * Will need SNF for 3-4 weeks of bedrest with likely need for acute inpatient rehab following healing of fx (3) UTI (urinary tract infection): * Recent Ecoli UTI * Finished 7 day course of ertapenem on 12/02 -- hx of multiple abx allergies * Follows with Dr. Xavier * UA neg in ED * Continue home flavoxate * Would avoid repeat UA unless patient develops symptoms -- patient states her typical symptoms are fatigue followed quickly by urgency. Per outpatient urology notes, patient likely with interstitial cystitis (4) Hypothyroidism: * Chronic. * TSH low at 0.272, FT4 elevated at 1.81 * Decreased morning dose to 88mcg -- will need outpatient follow up, repeat TFT in 4-6 weeks. Patient states her dose was adjusted to 100mcg back in July. Could consider alternating or doing 100mcg six days a week (5) Labile hypertension: * Hx Labile HTN. Chronic. Stable. 135/67 * Continue home clonidine (6) Asthma: * Continue home budesonide, levalbuterol Q6 prn * Patient with post nasal drip --> Per patient, had previously been using advair -- will resume -- will need to monitor for thrush, as patient believes last episode to be contributed to her levalbuterol. I explained that thrush moreso likely to occur from Advair, and she will need to rinse her mouth after use. (7) Vitamin D deficiency: * Continue home vit D 5,000 IU daily (8) Vitamin B12 deficiency: * Hx B12 deficiency. B12 back this afternoon at 289, low normal. * After conversation with patient and daughter this morning, patient had previously trialed B12 drops -- patient's daughter to bring in to resume as patient with adverse experience to pill/injection B12 of mental fog and headache (9) Dyslipidemia: * Hx of. Unable to tolerate statins (10) DVT prophylaxis: * SCDs * Will avoid chemical prophylaxis at this time, as patient states she has been intolerant to ASA, NSAIDs and heparin products that have caused bleeding -- will be at increased risk for DVT given plan for bedrest for next 3-4 weeks Dispo: hopeful for discharge [facility] pending insurance auth/bed availability. Ref sent to [facility] as well. Will need 3-4 weeks BR, serial xrays at discretion of ortho, and likely rehab following. (11) Osteoporosis: possible osteoporosis with current pathological fracture Subjective patient laying in bed says she only has pain in right hip if she moves eating okay reviewed chart, reviewed reasons for her to want conservative management with difficult intubation, allergies to metals orthopedics would recommend referral to tertiary care if she would need/want surgery long talk with CM, placement will be difficult because she would not be considered rehab, it would be more longterm care therefor she would need to pay out of pocket, cost at [facility] is $360/lalo, [facility] will contact daughter about their costs could qualify for [place] bed as she is for life difficult situation with need for bedrest for 3 weeks, no guarantee that it will work, may need surgery anyway which would be at tertiary care at baseline she was living independently will continue to discuss options with family and patient no chest pain, no dyspnea, no fever/chills, no nausea, only has the right hip pain Review of Systems Review of Systems: All systems reviewed & are unremarkable except as noted in HPI & below Physical Exam Constitutional: WD/WN, vitals as above Eyes: PERRL, conjunctivae normal, anicteric sclerae ENMT: external ear and nose normal, oropharynx normal Neck: trachea midline, no thyromegaly Respiratory: normal respiratory effort, lungs clear to auscultation Cardiovascular: RRR, no murmur, no edema Gastrointestinal (Abdomen): normal bowel sounds, soft, nontender, no hepatosplenomegaly Musculoskeletal: no cyanosis or clubbing, extremities motor strength 5/5 Hip: + limited ROM of hip (severe pain with any movement) and + log roll test positive Skin: no rashes, warm and dry Neurologic: patellar DTR's 2+ bilat, sensation intact and PERRL, EOMI, accommodation nl, no face palsy, no dysarthria Psychiatric: A+Ox3, euthymic affect Lymphatic: no cervical or axillary lymphadenopathy Results & Data Vital Signs (Past 12 Hours) Vital Signs Temp Pulse Resp BP BP Pulse Ox 12/08/19 15:08 36.7 C 65 16 104/57 L 91 12/08/19 08:42 36.7 C 12/08/19 07:05 37.7 C H 74 16 132/73 92 12/08/19 05:24 143/81 H Laboratory Results Laboratory Results - last 24 hr 12/08/19 12/08/19 05:08 05:08 WBC 7.70 RBC 4.34 Hgb 13.3 Hct 39.2 MCV 90.3 MCH 30.6 MCHC 33.9 RDW Std Deviation 42.4 RDW Coeff of Ashley 12.8 Plt Count 224 MPV 11.3 H Immature Gran % (Auto) 0.3 Neut % (Auto) 52.9 Lymph % (Auto) 23.4 Eddy % (Auto) 13.6 Eos % (Auto) 9.5 Baso % (Auto) 0.3 Immature Gran # (Auto) 0.02 Neut # (Auto) 4.08 Lymph # (Auto) 1.80 Eddy # (Auto) 1.05 H Eos # (Auto) 0.73 H Baso # (Auto) 0.02 Sodium 136 Potassium 4.0 Chloride 104 Carbon Dioxide 27 Anion Gap 5.0 BUN 12 Creatinine 0.62 Est Cr Clr Drug Dosing 68.8 Est GFR ( Amer) 101.5 Est GFR (Non-Af Amer) 87.6 BUN/Creatinine Ratio 18.9 Glucose 123 H Calcium 8.8 Medications Administered Current Inpatient Medications Acetaminophen (Tylenol) 650 mg PO Q4H PRN PRN Reason: pain/fever Stop: 01/04/20 16:44 Last Admin: 12/06/19 10:54 Dose: 650 mg Documented by: Al Hydrox/Mg Hydrox/Simethicone (Maalox Max) 5 ml PO QID PRN PRN Reason: Gastric Reflux Stop: 01/04/20 16:44 Ascorbic Acid (Vitamin C) 500 mg PO DAILY PRN PRN Reason: Acid Reflux Stop: 01/04/20 16:44 Budesonide (Rhinocort Aq) 2 sprays NA BID [facility] Stop: 01/04/20 20:59 Last Admin: 12/08/19 08:58 Dose: Not Given Documented by: Clonidine HCl (Catapres) 0.1 mg PO TID@0600,1400,2200 [facility] Stop: 01/04/20 21:59 Last Admin: 12/08/19 13:22 Dose: 0.1 mg Documented by: Diphenhydramine HCl (Benadryl Syrup) 12.5 mg PO DAILY PRN PRN Reason: ALLERGIES Stop: 01/04/20 16:58 Ergotamine/Caffeine (Cafergot) 1 tab PO DAILY PRN PRN Reason: Headache Stop: 01/04/20 19:59 Flavoxate HCl (Urispas) 100 mg PO TID PRN PRN Reason: Bladder Spasms Stop: 01/04/20 16:44 Guaifenesin (Mucinex) 300 mg PO DAILY@2200 [facility] Stop: 01/05/20 21:59 Last Admin: 12/07/19 22:18 Dose: 300 mg Documented by: Levalbuterol HCl (Xopenex Hfa) 1 puffs INH Q6H PRN PRN Reason: Shortness Of Breath Stop: 01/04/20 16:44 Levothyroxine Sodium (Synthroid) 88 mcg PO DAILY@0600 [facility] Stop: 01/06/20 05:59 Last Admin: 12/08/19 05:27 Dose: 88 mcg Documented by: Magnesium Hydroxide (Milk Of Magnesia) 30 ml PO Q6H PRN PRN Reason: Constipation Stop: 01/04/20 16:44 Methocarbamol (Robaxin) 250 - 500 mg PO BID PRN PRN Reason: Muscle Pain Stop: 01/04/20 16:44 Miscellaneous (Order Awaiting Action) 1 ea N/A QS [facility] Stop: 01/05/20 00:00 Last Admin: 12/08/19 08:58 Dose: Not Given Documented by: Nitroglycerin (Nitrostat) 0.4 mg SL PRN PRN PRN Reason: Chest Pain Stop: 01/04/20 16:44 Verapamil 80 Mg: Non -Formulary Patient's Own Med 1 ea PO TID@0600,1400,2200 [facility] Stop: 01/04/20 21:59 Last Admin: 12/08/19 13:21 Dose: 1 ea Documented by: Cetirizine~Non- Formulary Patient's Own Med 1 ea PO BID PRN PRN Reason: ALLERGIES Stop: 01/06/20 21:59 Last Admin: 12/07/19 23:41 Dose: 5 ml Documented by: Vitamin D3: Non- Formulary Patient's Own Med 1 ea PO DAILY [facility] Stop: 01/07/20 08:59 Last Admin: 12/08/19 08:58 Dose: 1 ea Documented by: Hydrocortisone: Non- Formulary Patient's Own Med 1 ea TOP QID PRN PRN Reason: AFFECTED SKIN Stop: 01/07/20 07:59 Ondansetron HCl (Zofran Tab) 4 mg PO Q6H PRN PRN Reason: Nausea And Vomiting Stop: 01/04/20 16:44 Ondansetron HCl (Zofran) 4 mg IV Q6H PRN PRN Reason: Nausea Stop: 01/04/20 16:44 Oxycodone/Acetaminophen (Percocet 5mg/325mg) 1 tab PO Q6H PRN PRN Reason: Pain Stop: 12/19/19 16:44 Last Admin: 12/08/19 12:56 Dose: 1 tab Documented by: Fluticasone/Salmeterol (Advair Diskus 100/50) 1 puffs INH HS [facility] Stop: 01/07/20 20:59 PG Care Time/CCT Total # of Minutes Spent Total Time Spent with Patient: Total time spent is greater than 50% in coordination of care (as documented) at patient's floor/unit and/or counseling patient: (1) Subcapital fracture of right hip Encounter type: initial encounter Fracture type: closed Qualified Code(s): S72.011A - Unspecified intracapsular fracture of right femur, initial encounter for closed fracture (2) Fall Encounter type: initial encounter Qualified Code(s): W19.XXXA - Unspecified fall, initial encounter
[2019-12-08] MEDS: CETIRIZINE PO PRN (17:34)
[2019-12-08] MEDS: GUAIFENESIN PO SCH (21:54)
[2019-12-08] MEDS: FLUTICASONE/SALMETEROL 100/50 (ADVAIR) 14 PUFF/1 INHALER INH SCH (21:54)
[2019-12-09] MEDS: VERAPAMIL 80 MG PO SCH ×4 (00:04→17:22)
[2019-12-09] MEDS: CLONIDINE HCL 0.1 MG PO SCH ×3 (06:20→17:21)
[2019-12-09] MEDS: LEVOTHYROXINE SODIUM 88 MCG TABLET PO SCH (06:20)
[2019-12-09] MEDS: OXYCODONE/ACETAMINOPHEN 5mg/325mg TAB PO PRN ×3 (06:26→21:43)
[2019-12-09] MEDS: BUDESONIDE AQ (RHINOCORT AQ) NASAL SPRAY 32 MCG SCH ×2 (10:17→21:39)
[2019-12-09] MEDS: CETIRIZINE PO PRN ×2 (10:18→21:43)
[2019-12-09] MEDS: VITAMIN D3: NON-FORMULARY PATIENT'S OWN MED PO SCH (12:54)
--- NOTE | 2019-12-09 16:47 | Hospitalist Progress Note ---
Date of Service December 09, 2019 Assessment & Plan (1) Subcapital fracture of right hip: * CT of RIGHT hip with subcapital fracture, suspected on previous xray * Ortho consult -- appreciate input * patient and family wish for conservative care because of h/o difficult intubation, difficulties with anesthesia as well as multiple allergies to metals * will need placed at SNF for 3 weeks of bedrest looking into [facility], will be paying out of pocket for room * Will need serial xrays to determine healing, can be arranged by orthopedics * Of note, if head of femur displaced further in the future would need specialty ceramic head replacement at tertiary facility * Able to tolerate oxycodone/acetaminophen CM working on placement, hoping for tomorrow if bed available at [facility] will discuss possibility of using Xarelto 10mg daily for DVT prophylaxis at [facility] as she will be bed bound for 3 weeks (2) Fall: * Purely mechanical * PT/OT: really she cannot participate due to complete bedrest * Will need SNF for 3-4 weeks of bedrest with likely need for acute inpatient rehab following healing of fx (3) UTI (urinary tract infection): * Recent Ecoli UTI * Finished 7 day course of ertapenem on 12/02 -- hx of multiple abx allergies * Follows with Dr. Xavier * UA neg in ED * Continue home flavoxate (4) Hypothyroidism: * Chronic. * TSH low at 0.272, FT4 elevated at 1.81 * Decreased morning dose to 88mcg -- will need outpatient follow up, repeat TFT in 4-6 weeks. Patient states her dose was adjusted to 100mcg back in July. Could consider alternating or doing 100mcg six days a week (5) Labile hypertension: * Hx Labile HTN. Chronic. Stable today * Continue home clonidine (6) Asthma: * Continue home budesonide, levalbuterol Q6 prn * Patient with post nasal drip --> Per patient, had previously been using advair -- will resume -- will need to monitor for thrush, as patient believes last episode to be contributed to her levalbuterol. I explained that thrush moreso likely to occur from Advair, and she will need to rinse her mouth after use. (7) Vitamin D deficiency: * Continue home vit D 5,000 IU daily (8) Vitamin B12 deficiency: * Hx B12 deficiency. B12 back this afternoon at 289, low normal. * continue B12 drops if she tolerates (9) Dyslipidemia: * Hx of. Unable to tolerate statins (10) DVT prophylaxis: * SCDs * Will discuss using Xarelto on discharge Dispo: hopeful for discharge tomorrow to [facility] (11) Osteoporosis: possible osteoporosis with current pathological fracture Subjective patient doing well, pain is reasonably controlled she is accepting of the fact that she will be in bed for 3 weeks at a minimum no chest pain, no dyspnea, eating well, moving her bowels, no nausea d/w her daughter at the bedside and CM plan for [facility], will be paying out of pocket for time being Review of Systems Review of Systems: All systems reviewed & are unremarkable except as noted in HPI & below Musculoskeletal: + joint pain (right hip with movement) Physical Exam Constitutional: WD/WN, vitals as above Eyes: PERRL, conjunctivae normal, anicteric sclerae ENMT: external ear and nose normal, oropharynx normal Neck: trachea midline, no thyromegaly Respiratory: normal respiratory effort, lungs clear to auscultation Cardiovascular: RRR, no murmur, no edema Gastrointestinal (Abdomen): normal bowel sounds, soft, nontender, no hepatosplenomegaly Musculoskeletal: no cyanosis or clubbing, extremities motor strength 5/5 Hip: + limited ROM of hip (severe pain with any movement) and + log roll test po sitive Skin: no rashes, warm and dry Neurologic: patellar DTR's 2+ bilat, sensation intact and PERRL, EOMI, accommodation nl, no face palsy, no dysarthria Psychiatric: A+Ox3, euthymic affect Lymphatic: no cervical or axillary lymphadenopathy Results & Data Vital Signs (Past 12 Hours) Vital Signs Temp Pulse Resp BP BP Pulse Ox 12/09/19 15:21 37.0 C 94 H 18 109/65 94 12/09/19 08:03 37.3 C 94 H 16 130/65 93 12/09/19 06:21 96 H 16 155/71 H Medications Administered Current Inpatient Medications Acetaminophen (Tylenol) 650 mg PO Q4H PRN PRN Reason: pain/fever Stop: 01/04/20 16:44 Last Admin: 12/06/19 10:54 Dose: 650 mg Documented by: Al Hydrox/Mg Hydrox/Simethicone (Maalox Max) 5 ml PO QID PRN PRN Reason: Gastric Reflux Stop: 01/04/20 16:44 Ascorbic Acid (Vitamin C) 500 mg PO DAILY PRN PRN Reason: Acid Reflux Stop: 01/04/20 16:44 Budesonide (Rhinocort Aq) 2 sprays NA BID [facility] Stop: 01/04/20 20:59 Last Admin: 12/09/19 10:17 Dose: Not Given Documented by: Clonidine HCl (Catapres) 0.1 mg PO TID@0600,1400,2200 [facility] Stop: 01/04/20 21:59 Last Admin: 12/09/19 14:44 Dose: 0.1 mg Documented by: Diphenhydramine HCl (Benadryl Syrup) 12.5 mg PO DAILY PRN PRN Reason: ALLERGIES Stop: 01/04/20 16:58 Ergotamine/Caffeine (Cafergot) 1 tab PO DAILY PRN PRN Reason: Headache Stop: 01/04/20 19:59 Flavoxate HCl (Urispas) 100 mg PO TID PRN PRN Reason: Bladder Spasms Stop: 01/04/20 16:44 Guaifenesin (Mucinex) 300 mg PO DAILY@2200 [facility] Stop: 01/05/20 21:59 Last Admin: 12/08/19 21:54 Dose: 300 mg Documented by: Levalbuterol HCl (Xopenex Hfa) 1 puffs INH Q6H PRN PRN Reason: Shortness Of Breath Stop: 01/04/20 16:44 Levothyroxine Sodium (Synthroid) 88 mcg PO DAILY@0600 [facility] Stop: 01/06/20 05:59 Last Admin: 12/09/19 06:20 Dose: 88 mcg Documented by: Magnesium Hydroxide (Milk Of Magnesia) 30 ml PO Q6H PRN PRN Reason: Constipation Stop: 01/04/20 16:44 Methocarbamol (Robaxin) 250 - 500 mg PO BID PRN PRN Reason: Muscle Pain Stop: 01/04/20 16:44 Miscellaneous (Order Awaiting Action) 1 ea N/A QS [facility] Stop: 01/05/20 00:00 Last Admin: 12/09/19 15:52 Dose: Not Given Documented by: Nitroglycerin (Nitrostat) 0.4 mg SL PRN PRN PRN Reason: Chest Pain Stop: 01/04/20 16:44 Verapamil 80 Mg: Non -Formulary Patient's Own Med 1 ea PO TID@0600,1400,2200 [facility] Stop: 01/04/20 21:59 Last Admin: 12/09/19 14:45 Dose: Not Given Documented by: Cetirizine~Non- Formulary Patient's Own Med 1 ea PO BID PRN PRN Reason: ALLERGIES Stop: 01/06/20 21:59 Last Admin: 12/09/19 10:18 Dose: 5 ml Documented by: Vitamin D3: Non- Formulary Patient's Own Med 1 ea PO DAILY [facility] Stop: 01/07/20 08:59 Last Admin: 12/09/19 12:54 Dose: 1 ea Documented by: Hydrocortisone: Non- Formulary Patient's Own Med 1 ea TOP QID PRN PRN Reason: AFFECTED SKIN Stop: 01/07/20 07:59 Last Admin: 12/08/19 17:31 Dose: 1 appln Documented by: Ondansetron HCl (Zofran Tab) 4 mg PO Q6H PRN PRN Reason: Nausea And Vomiting Stop: 01/04/20 16:44 Ondansetron HCl (Zofran) 4 mg IV Q6H PRN PRN Reason: Nausea Stop: 01/04/20 16:44 Oxycodone/Acetaminophen (Percocet 5mg/325mg) 1 tab PO Q6H PRN PRN Reason: Pain Stop: 12/19/19 16:44 Last Admin: 12/09/19 14:18 Dose: 1 tab Documented by: Fluticasone/Salmeterol (Advair Diskus 100/50) 1 puffs INH HS [facility] Stop: 01/07/20 20:59 Last Admin: 12/08/19 21:54 Dose: 1 puffs Documented by: PG Care Time/CCT Total # of Minutes Spent Total Time Spent with Patient: Total time spent is greater than 50% in coordination of care (as documented) at patient's floor/unit and/or counseling patient: (1) Subcapital fracture of right hip Encounter type: initial encounter Fracture type: closed Qualified Code(s): S72.011A - Unspecified intracapsular fracture of right femur, initial encounter for closed fracture (2) Fall Encounter type: initial encounter Qualified Code(s): W19.XXXA - Unspecified fall, initial encounter
[2019-12-09] MEDS: FLUTICASONE/SALMETEROL 100/50 (ADVAIR) 14 PUFF/1 INHALER INH SCH (21:42)
[2019-12-09] MEDS: GUAIFENESIN PO SCH (21:42)
[2019-12-10] MEDS: VERAPAMIL 80 MG PO SCH ×4 (00:31→21:16)
[2019-12-10] MEDS: CLONIDINE HCL 0.1 MG PO SCH ×4 (00:32→21:16)
[2019-12-10] MEDS: LEVOTHYROXINE SODIUM 88 MCG TABLET PO SCH (05:55)
[2019-12-10] MEDS: OXYCODONE/ACETAMINOPHEN 5mg/325mg TAB PO PRN ×2 (06:01→13:35)
[2019-12-10] MEDS: VITAMIN D3: NON-FORMULARY PATIENT'S OWN MED PO SCH (09:14)
[2019-12-10] MEDS: BUDESONIDE AQ (RHINOCORT AQ) NASAL SPRAY 32 MCG SCH ×2 (09:14→21:14)
[2019-12-10] MEDS ORDERED: FLUOCINONIDE 0.05% CR 15 GM TUBE EXT PRN (09:45)
[2019-12-10] MEDS: ACETAMINOPHEN 325 MG TAB PO PRN ×2 (10:19→18:49)
[2019-12-10] MEDS: CETIRIZINE PO PRN (14:39)
--- NOTE | 2019-12-10 17:37 | Hospitalist Progress Note ---
Date of Service December 10, 2019 Assessment & Plan (1) Subcapital fracture of right hip: * CT of RIGHT hip with subcapital fracture, suspected on previous xray * Ortho consult -- appreciate input * patient and family wish for conservative care because of h/o difficult intubation, difficulties with anesthesia as well as multiple allergies to metals * looking into snf care at [place] for 3-4 weeks * Will need serial xrays to determine healing, can be arranged by orthopedics * Of note, if head of femur displaced further in the future would need specialty ceramic head replacement at tertiary facility * Able to tolerate oxycodone/acetaminophen CM working on placement, hoping for tomorrow if bed available at [place] (2) Fall: * Purely mechanical * PT/OT: really she cannot participate due to complete bedrest * Will need SNF for 3-4 weeks of bedrest with likely need for acute inpatient rehab following healing of fx (3) UTI (urinary tract infection): * Recent Ecoli UTI * Finished 7 day course of ertapenem on 12/02 -- hx of multiple abx allergies * Follows with Dr. Xavier * UA neg in ED * Continue home flavoxate (4) Hypothyroidism: * Chronic. * TSH low at 0.272, FT4 elevated at 1.81 * Decreased morning dose to 88mcg -- will need outpatient follow up, repeat TFT in 4-6 weeks. Patient states her dose was adjusted to 100mcg back in July. Could consider alternating or doing 100mcg six days a week (5) Labile hypertension: * Hx Labile HTN. Chronic. Stable today * Continue home clonidine (6) Asthma: * Continue home budesonide, levalbuterol Q6 prn * Patient with post nasal drip --> Per patient, had previously been using advair -- will resume -- will need to monitor for thrush, as patient believes last episode to be contributed to her levalbuterol. I explained that thrush moreso likely to occur from Advair, and she will need to rinse her mouth after use. (7) Vitamin D deficiency: * Continue home vit D 5,000 IU daily (8) Vitamin B12 deficiency: * Hx B12 deficiency. B12 back this afternoon at 289, low normal. * continue B12 drops if she tolerates (9) Dyslipidemia: * Hx of. Unable to tolerate statins (10) DVT prophylaxis: * SCDs * Will discuss using Xarelto on discharge Dispo: hopeful for discharge tomorrow to [facility] (11) Osteoporosis: possible osteoporosis with current pathological fracture Subjective still looking into placement patient resting comfortably cannot be accepted by [facility], looking into [facility] patient eating well no fever, no chest pain, no dyspnea, no cough has right hip pain with movement Review of Systems Review of Systems: All systems reviewed & are unremarkable except as noted in HPI & below Musculoskeletal: + joint pain (right hip) Physical Exam Constitutional: WD/WN, vitals as above Eyes: PERRL, conjunctivae normal, anicteric sclerae ENMT: external ear and nose normal, oropharynx normal Neck: trachea midline, no thyromegaly Respiratory: normal respiratory effort, lungs clear to auscultation Cardiovascular: RRR, no murmur, no edema Gastrointestinal (Abdomen): normal bowel sounds, soft, nontender, no hepatosplenomegaly Musculoskeletal: no cyanosis or clubbing, extremities motor strength 5/5 Hip: + limited ROM of hip (severe pain with any movement) and + log roll test positive Skin: no rashes, warm and dry Neurologic: patellar DTR's 2+ bilat, sensation intact and PERRL, EOMI, accommodation nl, no face palsy, no dysarthria Psychiatric: A+Ox3, euthymic affect Lymphatic: no cervical or axillary lymphadenopathy Results & Data Vital Signs (Past 12 Hours) Vital Signs Temp Pulse Pulse Resp BP BP Pulse Ox 12/10/19 15:34 36.7 C 85 18 136/67 93 12/10/19 07:40 36.7 C 76 18 115/62 91 12/10/19 05:51 88 149/65 H Medications Administered Current Inpatient Medications Acetaminophen (Tylenol) 650 mg PO Q4H PRN PRN Reason: pain/fever Stop: 01/04/20 16:44 Last Admin: 12/10/19 10:19 Dose: 650 mg Documented by: Al Hydrox/Mg Hydrox/Simethicone (Maalox Max) 5 ml PO QID PRN PRN Reason: Gastric Reflux Stop: 01/04/20 16:44 Ascorbic Acid (Vitamin C) 500 mg PO DAILY PRN PRN Reason: Acid Reflux Stop: 01/04/20 16:44 Budesonide (Rhinocort Aq) 2 sprays NA BID [facility] Stop: 01/04/20 20:59 Last Admin: 12/10/19 09:14 Dose: Not Given Documented by: Clonidine HCl (Catapres) 0.1 mg PO TID@0600,1400,2200 [facility] Stop: 01/04/20 21:59 Last Admin: 12/10/19 13:36 Dose: 0.1 mg Documented by: Diphenhydramine HCl (Benadryl Syrup) 12.5 mg PO DAILY PRN PRN Reason: ALLERGIES Stop: 01/04/20 16:58 Ergotamine/Caffeine (Cafergot) 1 tab PO DAILY PRN PRN Reason: Headache Stop: 01/04/20 19:59 Flavoxate HCl (Urispas) 100 mg PO TID PRN PRN Reason: Bladder Spasms Stop: 01/04/20 16:44 Fluocinonide (Lidex 0.5%) 1 appln EXT BID PRN PRN Reason: AFFECTED SITES Stop: 01/09/20 09:40 Guaifenesin (Mucinex) 300 mg PO DAILY@2200 [facility] Stop: 01/05/20 21:59 Last Admin: 12/09/19 21:42 Dose: 300 mg Documented by: Levalbuterol HCl (Xopenex Hfa) 1 puffs INH Q6H PRN PRN Reason: Shortness Of Breath Stop: 01/04/20 16:44 Levothyroxine Sodium (Synthroid) 88 mcg PO DAILY@0600 [facility] Stop: 01/06/20 05:59 Last Admin: 12/10/19 05:55 Dose: 88 mcg Documented by: Magnesium Hydroxide (Milk Of Magnesia) 30 ml PO Q6H PRN PRN Reason: Constipation Stop: 01/04/20 16:44 Methocarbamol (Robaxin) 250 - 500 mg PO BID PRN PRN Reason: Muscle Pain Stop: 01/04/20 16:44 Nitroglycerin (Nitrostat) 0.4 mg SL PRN PRN PRN Reason: Chest Pain Stop: 01/04/20 16:44 Verapamil 80 Mg: Non -Formulary Patient's Own Med 1 ea PO TID@0600,1400,2200 [facility] Stop: 01/04/20 21:59 Last Admin: 12/10/19 13:36 Dose: 80 mg Documented by: Cetirizine~Non- Formulary Patient's Own Med 1 ea PO BID PRN PRN Reason: ALLERGIES Stop: 01/06/20 21:59 Last Admin: 12/10/19 14:39 Dose: 5 ml Documented by: Vitamin D3: Non- Formulary Patient's Own Med 1 ea PO DAILY [facility] Stop: 01/07/20 08:59 Last Admin: 12/10/19 09:14 Dose: 1 ea Documented by: Hydrocortisone: Non- Formulary Patient's Own Med 1 ea TOP QID PRN PRN Reason: AFFECTED SKIN Stop: 01/07/20 07:59 Last Admin: 12/08/19 17:31 Dose: 1 appln Documented by: Ondansetron HCl (Zofran Tab) 4 mg PO Q6H PRN PRN Reason: Nausea And Vomiting Stop: 01/04/20 16:44 Ondansetron HCl (Zofran) 4 mg IV Q6H PRN PRN Reason: Nausea Stop: 01/04/20 16:44 Oxycodone/Acetaminophen (Percocet 5mg/325mg) 1 tab PO Q6H PRN PRN Reason: Pain Stop: 12/19/19 16:44 Last Admin: 12/10/19 13:35 Dose: 1 tab Documented by: Fluticasone/Salmeterol (Advair Diskus 100/50) 1 puffs INH HS [facility] Stop: 01/07/20 20:59 Last Admin: 12/09/19 21:42 Dose: 1 puffs Documented by: PG Care Time/CCT Total # of Minutes Spent Total Time Spent with Patient: Total time spent is greater than 50% in coordination of care (as documented) at patient's floor/unit and/or counseling patient: (1) Subcapital fracture of right hip Encounter type: initial encounter Fracture type: closed Qualified Code(s): S72.011A - Unspecified intracapsular fracture of right femur, initial encounter for closed fracture (2) Fall Encounter type: initial encounter Qualified Code(s): W19.XXXA - Unspecified fall, initial encounter
[2019-12-10] MEDS: FLUTICASONE/SALMETEROL 100/50 (ADVAIR) 14 PUFF/1 INHALER INH SCH (21:13)
[2019-12-10] MEDS: GUAIFENESIN PO SCH (21:15)
[2019-12-11] MEDS: VERAPAMIL 80 MG PO SCH ×3 (05:36→22:10)
[2019-12-11] MEDS: LEVOTHYROXINE SODIUM 88 MCG TABLET PO SCH (05:36)
[2019-12-11] MEDS: CLONIDINE HCL 0.1 MG PO SCH ×3 (05:37→22:11)
[2019-12-11] MEDS: OXYCODONE/ACETAMINOPHEN 5mg/325mg TAB PO PRN ×3 (05:59→22:16)
[2019-12-11 08:43] LABS: Appearance Urine Clear (Clear); Bacteria Urine Automated 4+ (Negative); Bilirubin Urine Negative (Negative); Blood Urine Negative (Negative); Color Urine Yellow; Glucose Urine UA Negative (Negative); Ketones Urine Negative (Negative); Leukocyte Esterase Urine 3+ (Negative); Nitrite Urine Positive (Negative); Protein Urine Negative (Negative); RBC Urine Automated 0-4 /hpf (0-4); Specific Gravity Urine 1.011 (1.000-1.030); Urobilinogen Urine Negative (Negative); pH Urine 7.5 (4.5-7.5)
[2019-12-11] MEDS: BUDESONIDE AQ (RHINOCORT AQ) NASAL SPRAY 32 MCG SCH ×2 (09:18→22:07)
[2019-12-11] MEDS: VITAMIN D3: NON-FORMULARY PATIENT'S OWN MED PO SCH (09:18)
[2019-12-11] MEDS: CETIRIZINE PO PRN (09:19)
[2019-12-11] MEDS: FLUTICASONE/SALMETEROL 100/50 (ADVAIR) 14 PUFF/1 INHALER INH SCH (22:06)
[2019-12-11] MEDS: GUAIFENESIN PO SCH (22:10)
--- NOTE | 2019-12-11 22:16 | Hospitalist Progress Note ---
Date of Service December 11, 2019 Assessment & Plan (1) Subcapital fracture of right hip: * CT of RIGHT hip with subcapital fracture, suspected on previous xray * Ortho consult -- appreciate input * patient and family wish for conservative care because of h/o difficult intubation, difficulties with anesthesia as well as multiple allergies to metals * looking into alf care at [place] for 3-4 weeks * Will need serial xrays to determine healing, can be arranged by orthopedics plan for repeat x-ray tomorrow * Of note, if head of femur displaced further in the future would need specialty ceramic head replacement at tertiary facility * Able to tolerate oxycodone/acetaminophen CM working on placement, [place] will take the patient (2) Fall: * Purely mechanical * PT/OT: really she cannot participate due to complete bedrest * Will need SNF for 3-4 weeks of bedrest with likely need for acute inpatient rehab following healing of fx (3) UTI (urinary tract infection): * Recent Ecoli UTI * Finished 7 day course of ertapenem on 12/02 -- hx of multiple abx allergies * Follows with Dr. Xavier * symptoms of dysuria on 12/11, checked UA that showed > 30 WBC, urine culture sent discussed with Dr. Xavier, will use Ertapenem will treat for 14 days since she failed only 7 days of therapy previously will need pre-medicated with Tylenol IV and Benadryl (4) Hypothyroidism: * Chronic. * TSH low at 0.272, FT4 elevated at 1.81 * Decreased morning dose to 88mcg -- will need outpatient follow up, repeat TFT in 4-6 weeks. Patient states her dose was adjusted to 100mcg back in July. Could consider alternating or doing 100mcg six days a week (5) Labile hypertension: * Hx Labile HTN. Chronic. Stable today * Continue home clonidine (6) Asthma: * Continue home budesonide, levalbuterol Q6 prn * Patient with post nasal drip --> Per patient, had previously been using advair -- will resume -- will need to monitor for thrush, as patient believes last episode to be contributed to her levalbuterol. I explained that thrush moreso likely to occur from Advair, and she will need to rinse her mouth after use. (7) Vitamin D deficiency: * Continue home vit D 5,000 IU daily (8) Vitamin B12 deficiency: * Hx B12 deficiency. B12 back this afternoon at 289, low normal. * continue B12 drops if she tolerates (9) Dyslipidemia: * Hx of. Unable to tolerate statins (10) DVT prophylaxis: * SCDs * Will discuss using Xarelto on discharge Dispo: hopeful for discharge tomorrow to [facility] (11) Osteoporosis: possible osteoporosis with current pathological fracture (12) Vaginal prolapse: long standing issue has tried numerous pessaries in the past has allergic reactions to all of them external vulva very irritated, painful Subjective patient with dysuria, requested a repeat UA UA with nitrites, leuk esterase, > 30WBC reviewed prior urine cultures, typically E coli that is de souza sensitive, the issue is that the patient has so many allergies most recently treated with Ertapenem d/w Dr. Xavier, she would recommend using Ertapenem again, pending urine culture results patient c/o that vagina and labia are quite sore, red this has been going on for some time difficulty with vaginal prolapse, difficult time finding a pessary that would work, material that she is not allergic to tearful at times discussing her recent history daughter updated at the bedside Review of Systems Review of Systems: All systems reviewed & are unremarkable except as noted in HPI & below Respiratory: no cough and no dyspnea Cardiovascular: no chest pain and no edema Gastrointestinal: no abdominal pain, no nausea, no vomiting, no constipation and no diarrhea/loose stools Genitourinary: + dysuria, + vaginal dryness, + pelvic pain and + prolapse symptoms Musculoskeletal: + joint pain (right hip) Physical Exam Constitutional: WD/WN, vitals as above Eyes: PERRL, conjunctivae normal, anicteric sclerae ENMT: external ear and nose normal, oropharynx normal Neck: trachea midline, no thyromegaly Respiratory: normal respiratory effort, lungs clear to auscultation Cardiovascular: RRR, no murmur, no edema Gastrointestinal (Abdomen): normal bowel sounds, soft, nontender, no hepatosplenomegaly Musculoskeletal: no cyanosis or clubbing, extremities motor strength 5/5 Hip: + limited ROM of hip (severe pain with any movement) and + log roll test positive Skin: no rashes, warm and dry Neurologic: patellar DTR's 2+ bilat, sensation intact and PERRL, EOMI, accommodation nl, no face palsy, no dysarthria Psychiatric: A+Ox3, euthymic affect Genitourinary: + external erythema; + abnormal external appearance (vulva swollen, erythematous, tender) Lymphatic: no cervical or axillary lymphadenopathy Results & Data Vital Signs (Past 12 Hours) Vital Signs Temp Pulse Pulse Resp BP Pulse Ox 12/11/19 22:08 81 151/78 H 12/11/19 15:46 36.8 C 84 18 160/67 H 96 12/11/19 13:52 84 16 162/79 H Medications Administered Current Inpatient Medications Acetaminophen (Tylenol) 650 mg PO Q4H PRN PRN Reason: pain/fever Stop: 01/04/20 16:44 Last Admin: 12/10/19 18:49 Dose: 650 mg Documented by: Al Hydrox/Mg Hydrox/Simethicone (Maalox Max) 5 ml PO QID PRN PRN Reason: Gastric Reflux Stop: 01/04/20 16:44 Ascorbic Acid (Vitamin C) 500 mg PO DAILY PRN PRN Reason: Acid Reflux Stop: 01/04/20 16:44 Budesonide (Rhinocort Aq) 2 sprays NA BID [facility] Stop: 01/04/20 20:59 Last Admin: 12/11/19 22:07 Dose: Not Given Documented by: Clonidine HCl (Catapres) 0.1 mg PO TID@0600,1400,2200 [facility] Stop: 01/04/20 21:59 Last Admin: 12/11/19 22:11 Dose: 0.1 mg Documented by: Diphenhydramine HCl (Benadryl Syrup) 12.5 mg PO DAILY PRN PRN Reason: ALLERGIES Stop: 01/04/20 16:58 Ergotamine/Caffeine (Cafergot) 1 tab PO DAILY PRN PRN Reason: Headache Stop: 01/04/20 19:59 Flavoxate HCl (Urispas) 100 mg PO TID PRN PRN Reason: Bladder Spasms Stop: 01/04/20 16:44 Fluocinonide (Lidex 0.5%) 1 appln EXT BID PRN PRN Reason: AFFECTED SITES Stop: 01/09/20 09:40 Guaifenesin (Mucinex) 300 mg PO DAILY@2200 [facility] Stop: 01/05/20 21:59 Last Admin: 12/11/19 22:10 Dose: 300 mg Documented by: Levalbuterol HCl (Xopenex Hfa) 1 puffs INH Q6H PRN PRN Reason: Shortness Of Breath Stop: 01/04/20 16:44 Levothyroxine Sodium (Synthroid) 88 mcg PO DAILY@0600 [facility] Stop: 01/06/20 05:59 Last Admin: 12/11/19 05:36 Dose: 88 mcg Documented by: Magnesium Hydroxide (Milk Of Magnesia) 30 ml PO Q6H PRN PRN Reason: Constipation Stop: 01/04/20 16:44 Methocarbamol (Robaxin) 250 - 500 mg PO BID PRN PRN Reason: Muscle Pain Stop: 01/04/20 16:44 Nitroglycerin (Nitrostat) 0.4 mg SL PRN PRN PRN Reason: Chest Pain Stop: 01/04/20 16:44 Verapamil 80 Mg: Non -Formulary Patient's Own Med 1 ea PO TID@0600,1400,2200 [facility] Stop: 01/04/20 21:59 Last Admin: 12/11/19 22:10 Dose: 1 tab Documented by: Cetirizine~Non- Formulary Patient's Own Med 1 ea PO BID PRN PRN Reason: ALLERGIES Stop: 01/06/20 21:59 Last Admin: 12/11/19 09:19 Dose: 5 ml Documented by: Vitamin D3: Non- Formulary Patient's Own Med 1 ea PO DAILY [facility] Stop: 01/07/20 08:59 Last Admin: 12/11/19 09:18 Dose: 1 ea Documented by: Hydrocortisone: Non- Formulary Patient's Own Med 1 ea TOP QID PRN PRN Reason: AFFECTED SKIN Stop: 01/07/20 07:59 Last Admin: 12/08/19 17:31 Dose: 1 appln Documented by: Ondansetron HCl (Zofran Tab) 4 mg PO Q6H PRN PRN Reason: Nausea And Vomiting Stop: 01/04/20 16:44 Ondansetron HCl (Zofran) 4 mg IV Q6H PRN PRN Reason: Nausea Stop: 01/04/20 16:44 Oxycodone/Acetaminophen (Percocet 5mg/325mg) 1 tab PO Q6H PRN PRN Reason: Pain Stop: 12/19/19 16:44 Last Admin: 12/11/19 14:01 Dose: 1 tab Documented by: Fluticasone/Salmeterol (Advair Diskus 100/50) 1 puffs INH HS [facility] Stop: 01/07/20 20:59 Last Admin: 12/11/19 22:06 Dose: 1 puffs Documented by: PG Care Time/CCT Total # of Minutes Spent Total Time Spent with Patient: Total time spent is greater than 50% in coordination of care (as documented) at patient's floor/unit and/or counseling patient: Coding Level of Care Code 25124 Subseq Hosp Care Lvl 2 Diagnoses Subcapital fracture of right hip S72.011A Encounter type: initial encounter Fracture type: closed Fall W19.XXXA Encounter type: initial encounter UTI (urinary tract infection) N39.0 Hypothyroidism E03.9 Labile hypertension R09.89 Asthma J45.909 Vitamin D deficiency E55.9 Vitamin B12 deficiency E53.8 Dyslipidemia E78.5 DVT prophylaxis Z29.9 Osteoporosis M81.0 Vaginal prolapse N81.10 (1) Subcapital fracture of right hip Encounter type: initial encounter Fracture type: closed Qualified Code(s): S72.011A - Unspecified intracapsular fracture of right femur, initial encounter for closed fracture (2) Fall Encounter type: initial encounter Qualified Code(s): W19.XXXA - Unspecified fall, initial encounter
[2019-12-12] MEDS: LEVOTHYROXINE SODIUM 88 MCG TABLET PO SCH (05:44)
[2019-12-12] MEDS: OXYCODONE/ACETAMINOPHEN 5mg/325mg TAB PO PRN ×2 (05:44→19:13)
[2019-12-12] MEDS: VERAPAMIL 80 MG PO SCH ×3 (05:45→20:56)
[2019-12-12] MEDS: CLONIDINE HCL 0.1 MG PO SCH ×3 (05:45→20:55)
[2019-12-12] MEDS ORDERED: methylPREDNISolone 20 MG in SYRINGE 0 ML IV ONE (09:00)
[2019-12-12] MEDS ORDERED: ACETAMINOPHEN 1,000 MG/100 ML VIAL IV STA (09:55)
[2019-12-12] MEDS ORDERED: DiphenhydrAMINE HCL 50 MG/ML VIAL IV STA (09:55)
[2019-12-12] MEDS: ERTAPENEM SODIUM 1,000 MG in SODIUM CHLORIDE 0.9% 50 ML IV SCH (11:16)
[2019-12-12] MEDS: BUDESONIDE AQ (RHINOCORT AQ) NASAL SPRAY 32 MCG SCH ×2 (11:29→20:54)
[2019-12-12] MEDS: VITAMIN D3: NON-FORMULARY PATIENT'S OWN MED PO SCH (13:44)
--- NOTE | 2019-12-12 15:50 | Hospitalist Progress Note ---
Date of Service December 12, 2019 Assessment & Plan (1) Subcapital fracture of right hip: * CT of RIGHT hip with subcapital fracture, suspected on previous xray * Ortho consult -- appreciate input * patient and family wish for conservative care because of h/o difficult intubation, difficulties with anesthesia as well as multiple allergies to metals * looking into long term care at [facility] for 3-4 weeks * Will need serial xrays to determine healing, can be arranged by orthopedics plan for repeat x-ray prior to discharge * Of note, if head of femur displaced further in the future would need specialty ceramic head replacement at tertiary facility * Able to tolerate oxycodone/acetaminophen CM working on placement, [facility] will no longer take patient on Ertapenem for UTI will look into other facilities (2) Fall: * Purely mechanical * PT/OT: really she cannot participate due to complete bedrest * Will need SNF for 3-4 weeks of bedrest with likely need for acute inpatient rehab following healing of fx (3) UTI (urinary tract infection): * Recent Ecoli UTI * Finished 7 day course of ertapenem on 12/02 -- hx of multiple abx allergies * Follows with Dr. Xavier * symptoms of dysuria on 12/11, checked UA that showed > 30 WBC, urine culture sent discussed with Dr. Xavier, will use Ertapenem will treat for 14 days since she failed only 7 days of therapy previously will need pre-medicated with Tylenol IV and Benadryl urine culture growing E coli (4) Hypothyroidism: * Chronic. * TSH low at 0.272, FT4 elevated at 1.81 * Decreased morning dose to 88mcg -- will need outpatient follow up, repeat TFT in 4-6 weeks. Patient states her dose was adjusted to 100mcg back in July. Could consider alternating or doing 100mcg six days a week (5) Labile hypertension: * Hx Labile HTN. Chronic. Stable today * Continue home clonidine (6) Asthma: * Continue home budesonide, levalbuterol Q6 prn * Patient with post nasal drip --> Per patient, had previously been using advair -- will resume -- will need to monitor for thrush, as patient believes last episode to be contributed to her levalbuterol. I explained that thrush moreso likely to occur from Advair, and she will need to rinse her mouth after use. (7) Vitamin D deficiency: * Continue home vit D 5,000 IU daily (8) Vitamin B12 deficiency: * Hx B12 deficiency. B12 back this afternoon at 289, low normal. * continue B12 drops if she tolerates (9) Dyslipidemia: * Hx of. Unable to tolerate statins (10) DVT prophylaxis: * SCDs * Will discuss using Xarelto on discharge Dispo: hopeful for discharge tomorrow to [facility] (11) Osteoporosis: possible osteoporosis with current pathological fracture (12) Vaginal prolapse: long standing issue has tried numerous pessaries in the past has allergic reactions to all of them external vulva very irritated, painful asked patient about hormone replacement therapy, she refuses to even consider topical agents Subjective discussed with patient and her daughter about whether she had seen gynecology as outpatient saw one a long time ago, per daughter she had a total hysterectomy and oopherectomy in the past hormone therapy was discontinued due to stroke risk even topical therapy was stopped and there were fears she might be allergic to the premarin she even saw endocrinology to look at other options but there were none they are not interested in seeing gynecology here in the hospital let them know that I spoke with Dr. Xavier, she is recommending Ertapenem unfortunately this will make d/c nearly impossible as [facility] will no longer take her, spoke with CM Review of Systems Review of Systems: All systems reviewed & are unremarkable except as noted in HPI & below Physical Exam Constitutional: WD/WN, vitals as above Eyes: PERRL, conjunctivae normal, anicteric sclerae ENMT: external ear and nose normal, oropharynx normal Neck: trachea midline, no thyromegaly Respiratory: normal respiratory effort, lungs clear to auscultation Cardiovascular: RRR, no murmur, no edema Gastrointestinal (Abdomen): normal bowel sounds, soft, nontender, no hepatosplenomegaly Musculoskeletal: no cyanosis or clubbing, extremities motor strength 5/5 Hip: + limited ROM of hip (severe pain with any movement) and + log roll test positive Skin: no rashes, warm and dry Neurologic: patellar DTR's 2+ bilat, sensation intact and PERRL, EOMI, accommodation nl, no face palsy, no dysarthria Psychiatric: A+Ox3, euthymic affect Lymphatic: no cervical or axillary lymphadenopathy Results & Data Vital Signs (Past 12 Hours) Vital Signs Temp Pulse Resp BP BP Pulse Ox 12/12/19 15:31 36.5 C 79 18 143/52 H 92 12/12/19 07:01 36.5 C 75 18 101/63 92 Medications Administered Current Inpatient Medications Acetaminophen (Tylenol) 650 mg PO Q4H PRN PRN Reason: pain/fever Stop: 01/04/20 16:44 Last Admin: 12/10/19 18:49 Dose: 650 mg Documented by: Al Hydrox/Mg Hydrox/Simethicone (Maalox Max) 5 ml PO QID PRN PRN Reason: Gastric Reflux Stop: 01/04/20 16:44 Ascorbic Acid (Vitamin C) 500 mg PO DAILY PRN PRN Reason: Acid Reflux Stop: 01/04/20 16:44 Budesonide (Rhinocort Aq) 2 sprays NA BID [facility] Stop: 01/04/20 20:59 Last Admin: 12/12/19 11:29 Dose: Not Given Documented by: Clonidine HCl (Catapres) 0.1 mg PO TID@0600,1400,2200 [facility] Stop: 01/04/20 21:59 Last Admin: 12/12/19 13:48 Dose: 0.1 mg Documented by: Diphenhydramine HCl (Benadryl Syrup) 12.5 mg PO DAILY PRN PRN Reason: ALLERGIES Stop: 01/04/20 16:58 Ergotamine/Caffeine (Cafergot) 1 tab PO DAILY PRN PRN Reason: Headache Stop: 01/04/20 19:59 Flavoxate HCl (Urispas) 100 mg PO TID PRN PRN Reason: Bladder Spasms Stop: 01/04/20 16:44 Fluocinonide (Lidex 0.5%) 1 appln EXT BID PRN PRN Reason: AFFECTED SITES Stop: 01/09/20 09:40 Guaifenesin (Mucinex) 300 mg PO DAILY@2200 [facility] Stop: 01/05/20 21:59 Last Admin: 12/11/19 22:10 Dose: 300 mg Documented by: Ertapenem 1,000 mg/ Sodium (Chloride) 60 mls @ 100 mls/hr IV DAILY [facility]; Protocol Stop: 12/22/19 09:29 Last Infusion: 12/12/19 11:59 Dose: Infused Documented by: Levalbuterol HCl (Xopenex Hfa) 1 puffs INH Q6H PRN PRN Reason: Shortness Of Breath Stop: 01/04/20 16:44 Levothyroxine Sodium (Synthroid) 88 mcg PO DAILY@0600 [facility] Stop: 01/06/20 05:59 Last Admin: 12/12/19 05:44 Dose: 88 mcg Documented by: Magnesium Hydroxide (Milk Of Magnesia) 30 ml PO Q6H PRN PRN Reason: Constipation Stop: 01/04/20 16:44 Methocarbamol (Robaxin) 250 - 500 mg PO BID PRN PRN Reason: Muscle Pain Stop: 01/04/20 16:44 Nitroglycerin (Nitrostat) 0.4 mg SL PRN PRN PRN Reason: Chest Pain Stop: 01/04/20 16:44 Verapamil 80 Mg: Non -Formulary Patient's Own Med 1 ea PO TID@0600,1400,2200 [facility] Stop: 01/04/20 21:59 Last Admin: 12/12/19 13:44 Dose: 80 tab Documented by: Cetirizine~Non- Formulary Patient's Own Med 1 ea PO BID PRN PRN Reason: ALLERGIES Stop: 01/06/20 21:59 Last Admin: 12/11/19 09:19 Dose: 5 ml Documented by: Vitamin D3: Non- Formulary Patient's Own Med 1 ea PO DAILY [facility] Stop: 01/07/20 08:59 Last Admin: 12/12/19 13:44 Dose: 1 ea Documented by: Hydrocortisone: Non- Formulary Patient's Own Med 1 ea TOP QID PRN PRN Reason: AFFECTED SKIN Stop: 01/07/20 07:59 Last Admin: 12/08/19 17:31 Dose: 1 appln Documented by: Ondansetron HCl (Zofran Tab) 4 mg PO Q6H PRN PRN Reason: Nausea And Vomiting Stop: 01/04/20 16:44 Ondansetron HCl (Zofran) 4 mg IV Q6H PRN PRN Reason: Nausea Stop: 01/04/20 16:44 Oxycodone/Acetaminophen (Percocet 5mg/325mg) 1 tab PO Q6H PRN PRN Reason: Pain Stop: 12/19/19 16:44 Last Admin: 12/12/19 05:44 Dose: 1 tab Documented by: Fluticasone/Salmeterol (Advair Diskus 100/50) 1 puffs INH HS [facility] Stop: 01/07/20 20:59 Last Admin: 12/11/19 22:06 Dose: 1 puffs Documented by: PG Care Time/CCT Total # of Minutes Spent Total Time Spent with Patient: Total time spent is greater than 50% in coordination of care (as documented) at patient's floor/unit and/or counseling patient: Coding Level of Care Code 17457 Subseq Hosp Care Lvl 2 Diagnoses Subcapital fracture of right hip S72.011A Encounter type: initial encounter Fracture type: closed Fall W19.XXXA Encounter type: initial encounter UTI (urinary tract infection) N39.0 Hypothyroidism E03.9 Labile hypertension R09.89 Asthma J45.909 Vitamin D deficiency E55.9 Vitamin B12 deficiency E53.8 Dyslipidemia E78.5 DVT prophylaxis Z29.9 Osteoporosis M81.0 Vaginal prolapse N81.10 (1) Subcapital fracture of right hip Encounter type: initial encounter Fracture type: closed Qualified Code(s): S72.011A - Unspecified intracapsular fracture of right femur, initial encounter for closed fracture (2) Fall Encounter type: initial encounter Qualified Code(s): W19.XXXA - Unspecified fall, initial encounter
[2019-12-12] MEDS: FLUTICASONE/SALMETEROL 100/50 (ADVAIR) 14 PUFF/1 INHALER INH SCH (20:54)
[2019-12-12] MEDS: GUAIFENESIN PO SCH (20:55)
[2019-12-13] MEDS: OXYCODONE/ACETAMINOPHEN 5mg/325mg TAB PO PRN ×3 (01:44→18:01)
[2019-12-13] MEDS: CLONIDINE HCL 0.1 MG PO SCH ×3 (06:10→21:51)
[2019-12-13] MEDS: LEVOTHYROXINE SODIUM 88 MCG TABLET PO SCH (06:10)
[2019-12-13] MEDS: VERAPAMIL 80 MG PO SCH ×3 (06:10→21:51)
[2019-12-13] MEDS ORDERED: Nursing to Pharmacy Communication ONE (08:50)
[2019-12-13] MEDS: BUDESONIDE AQ (RHINOCORT AQ) NASAL SPRAY 32 MCG SCH ×2 (09:32→21:45)
[2019-12-13] MEDS: ACETAMINOPHEN 65 ML IV SCH ×2 (09:32→13:19)
[2019-12-13] MEDS: VITAMIN D3: NON-FORMULARY PATIENT'S OWN MED PO SCH (10:27)
[2019-12-13] MEDS: ERTAPENEM SODIUM 1,000 MG in SODIUM CHLORIDE 0.9% 50 ML IV SCH (13:30)
[2019-12-13] MEDS: DiphenhydrAMINE HCL 50 MG/ML VIAL IV SCH (13:35)
--- NOTE | 2019-12-13 17:01 | Hospitalist Progress Note ---
Date of Service December 13, 2019 Assessment & Plan (1) Subcapital fracture of right hip: * CT of RIGHT hip with subcapital fracture, suspected on previous xray * Ortho consult -- appreciate input * patient and family wish for conservative care because of h/o difficult intubation, difficulties with anesthesia as well as multiple allergies to metals * looking into fci care at [facility] for 3-4 weeks * Will need serial xrays to determine healing, can be arranged by orthopedics plan for repeat x-ray prior to discharge * Of note, if head of femur displaced further in the future would need specialty ceramic head replacement at tertiary facility * Able to tolerate oxycodone/acetaminophen CM working on placement, [facility] will no longer take patient on Ertapenem for UTI will look into other facilities but won't have answers over the weekend (2) Fall: * Purely mechanical * PT/OT: really she cannot participate due to complete bedrest * Will need SNF for 3-4 weeks of bedrest with likely need for acute inpatient rehab following healing of fx (3) UTI (urinary tract infection): * Recent Ecoli UTI * Finished 7 day course of ertapenem on 12/02 -- hx of multiple abx allergies * Follows with Dr. Xavier * symptoms of dysuria on 12/11, checked UA that showed > 30 WBC, urine culture sent discussed with Dr. Xavier, will use Ertapenem will treat for 14 days since she failed only 7 days of therapy previously will need pre-medicated with Tylenol IV and Benadryl urine culture growing E coli today is day 2 of therapy, last dose would be 12/26 (4) Hypothyroidism: * Chronic. * TSH low at 0.272, FT4 elevated at 1.81 * Decreased morning dose to 88mcg -- will need outpatient follow up, repeat TFT in 4-6 weeks. Patient states her dose was adjusted to 100mcg back in July. Could consider alternating or doing 100mcg six days a week (5) Labile hypertension: * Hx Labile HTN. Chronic. Stable today * Continue home clonidine (6) Asthma: * Continue home budesonide, levalbuterol Q6 prn * Patient with post nasal drip --> Per patient, had previously been using advair -- will resume (7) Vitamin D deficiency: * Continue home vit D 5,000 IU daily (8) Vitamin B12 deficiency: * Hx B12 deficiency. B12 back this afternoon at 289, low normal. * continue B12 drops if she tolerates (9) Dyslipidemia: * Hx of. Unable to tolerate statins (10) DVT prophylaxis: * SCDs * Will discuss using Xarelto on discharge Dispo: hopeful for discharge tomorrow to [facility] (11) Osteoporosis: possible osteoporosis with current pathological fracture (12) Vaginal prolapse: long standing issue has tried numerous pessaries in the past has allergic reactions to all of them external vulva very irritated, painful asked patient about hormone replacement therapy, she refuses to even consider topical agents Subjective patient pleasant today she admits to being sweaty after completing her Ertapenem she said she fell asleep after the infusion and was diaphoretic when awakening she said that his happens with medications eating fairly well, she is not upset if she loses a few pounds through this whole ordeal no chest pain, no dyspnea, no fever/chills, no nausea, she is moving her bowels, making urine discussed that d/c is still uncertain because she does not have an accepting SNF yet Review of Systems Review of Systems: All systems reviewed & are unremarkable except as noted in HPI & below Physical Exam Constitutional: WD/WN, vitals as above + diaphoretic Eyes: PERRL, conjunctivae normal, anicteric sclerae ENMT: external ear and nose normal, oropharynx normal Neck: trachea midline, no thyromegaly Respiratory: normal respiratory effort, lungs clear to auscultation Cardiovascular: RRR, no murmur, no edema Gastrointestinal (Abdomen): normal bowel sounds, soft, nontender, no hepatosplenomegaly Musculoskeletal: no cyanosis or clubbing, extremities motor strength 5/5 Hip: + limited ROM of hip (severe pain with any movement) and + log roll test positive Skin: no rashes, warm and dry Neurologic: patellar DTR's 2+ bilat, sensation intact and PERRL, EOMI, accommo dation nl, no face palsy, no dysarthria Psychiatric: A+Ox3, euthymic affect Genitourinary: + external erythema; + abnormal external appearance (vulva swollen, erythematous, tender) Lymphatic: no cervical or axillary lymphadenopathy Results & Data Vital Signs (Past 12 Hours) Vital Signs Temp Pulse Pulse Resp BP BP Pulse Ox 12/13/19 15:38 36.5 C 77 18 114/60 92 12/13/19 07:04 36.5 C 90 18 119/68 90 Medications Administered Current Inpatient Medications Acetaminophen (Tylenol) 650 mg PO Q4H PRN PRN Reason: pain/fever Stop: 01/04/20 16:44 Last Admin: 12/10/19 18:49 Dose: 650 mg Documented by: Al Hydrox/Mg Hydrox/Simethicone (Maalox Max) 5 ml PO QID PRN PRN Reason: Gastric Reflux Stop: 01/04/20 16:44 Ascorbic Acid (Vitamin C) 500 mg PO DAILY PRN PRN Reason: Acid Reflux Stop: 01/04/20 16:44 Budesonide (Rhinocort Aq) 2 sprays NA BID [facility] Stop: 01/04/20 20:59 Last Admin: 12/13/19 09:32 Dose: Not Given Documented by: Clonidine HCl (Catapres) 0.1 mg PO TID@0600,1400,2200 [facility] Stop: 01/04/20 21:59 Last Admin: 12/13/19 14:25 Dose: 0.1 mg Documented by: Diphenhydramine HCl (Benadryl Syrup) 12.5 mg PO DAILY PRN PRN Reason: ALLERGIES Stop: 01/04/20 16:58 Diphenhydramine HCl (Benadryl) 25 mg IV DAILY@0830 [facility] Stop: 01/12/20 09:14 Last Admin: 12/13/19 13:35 Dose: 25 mg Documented by: Ergotamine/Caffeine (Cafergot) 1 tab PO DAILY PRN PRN Reason: Headache Stop: 01/04/20 19:59 Flavoxate HCl (Urispas) 100 mg PO TID PRN PRN Reason: Bladder Spasms Stop: 01/04/20 16:44 Fluocinonide (Lidex 0.5%) 1 appln EXT BID PRN PRN Reason: AFFECTED SITES Stop: 01/09/20 09:40 Guaifenesin (Mucinex) 300 mg PO DAILY@2200 [facility] Stop: 01/05/20 21:59 Last Admin: 12/12/19 20:55 Dose: 300 mg Documented by: Ertapenem 1,000 mg/ Sodium (Chloride) 60 mls @ 100 mls/hr IV DAILY [facility]; Protocol Stop: 12/22/19 09:29 Last Infusion: 12/13/19 14:10 Dose: Infused Documented by: Acetaminophen (Ofirmev) 65 mls @ 260 mls/hr IV DAILY@0830 [facility] Stop: 12/16/19 08:29 Last Infusion: 12/13/19 14:24 Dose: Infused Documented by: Levalbuterol HCl (Xopenex Hfa) 1 puffs INH Q6H PRN PRN Reason: Shortness Of Breath Stop: 01/04/20 16:44 Levothyroxine Sodium (Synthroid) 88 mcg PO DAILY@0600 [facility] Stop: 01/06/20 05:59 Last Admin: 12/13/19 06:10 Dose: 88 mcg Documented by: Magnesium Hydroxide (Milk Of Magnesia) 30 ml PO Q6H PRN PRN Reason: Constipation Stop: 01/04/20 16:44 Methocarbamol (Robaxin) 250 - 500 mg PO BID PRN PRN Reason: Muscle Pain Stop: 01/04/20 16:44 Nitroglycerin (Nitrostat) 0.4 mg SL PRN PRN PRN Reason: Chest Pain Stop: 01/04/20 16:44 Verapamil 80 Mg: Non -Formulary Patient's Own Med 1 ea PO TID@0600,1400,2200 [facility] Stop: 01/04/20 21:59 Last Admin: 12/13/19 14:26 Dose: 1 tab Documented by: Cetirizine~Non- Formulary Patient's Own Med 1 ea PO BID PRN PRN Reason: ALLERGIES Stop: 01/06/20 21:59 Last Admin: 12/11/19 09:19 Dose: 5 ml Documented by: Vitamin D3: Non- Formulary Patient's Own Med 1 ea PO DAILY [facility] Stop: 01/07/20 08:59 Last Admin: 12/13/19 10:27 Dose: 1 ea Documented by: Hydrocortisone: Non- Formulary Patient's Own Med 1 ea TOP QID PRN PRN Reason: AFFECTED SKIN Stop: 01/07/20 07:59 Last Admin: 12/08/19 17:31 Dose: 1 appln Documented by: Ondansetron HCl (Zofran Tab) 4 mg PO Q6H PRN PRN Reason: Nausea And Vomiting Stop: 01/04/20 16:44 Ondansetron HCl (Zofran) 4 mg IV Q6H PRN PRN Reason: Nausea Stop: 01/04/20 16:44 Oxycodone/Acetaminophen (Percocet 5mg/325mg) 1 tab PO Q6H PRN PRN Reason: Pain Stop: 12/19/19 16:44 Last Admin: 12/13/19 10:26 Dose: 1 tab Documented by: Fluticasone/Salmeterol (Advair Diskus 100/50) 1 puffs INH HS [facility] Stop: 01/07/20 20:59 Last Admin: 12/12/19 20:54 Dose: Not Given Documented by: PG Care Time/CCT Total # of Minutes Spent Total Time Spent with Patient: Total time spent is greater than 50% in coordination of care (as documented) at patient's floor/unit and/or counseling patient: Coding Level of Care Code 99839 Subseq Hosp Care Lvl 2 Diagnoses Subcapital fracture of right hip S72.011A Encounter type: initial encounter Fracture type: closed Fall W19.XXXA Encounter type: initial encounter UTI (urinary tract infection) N39.0 Hypothyroidism E03.9 Labile hypertension R09.89 Asthma J45.909 Vitamin D deficiency E55.9 Vitamin B12 deficiency E53.8 Dyslipidemia E78.5 DVT prophylaxis Z29.9 Osteoporosis M81.0 Vaginal prolapse N81.10 (1) Subcapital fracture of right hip Encounter type: initial encounter Fracture type: closed Qualified Code(s): S72.011A - Unspecified intracapsular fracture of right femur, initial encounter for closed fracture (2) Fall Encounter type: initial encounter Qualified Code(s): W19.XXXA - Unspecified fall, initial encounter
[2019-12-13] MEDS: CAFFEINE PO PRN (18:37)
[2019-12-13] MEDS: ERGOTAMINE PO PRN (18:37)
[2019-12-13] MEDS: CETIRIZINE PO PRN (21:48)
[2019-12-13] MEDS: GUAIFENESIN PO SCH (21:50)
[2019-12-13] MEDS: FLUTICASONE/SALMETEROL 100/50 (ADVAIR) 14 PUFF/1 INHALER INH SCH (21:50)
[2019-12-14] MEDS: OXYCODONE/ACETAMINOPHEN 5mg/325mg TAB PO PRN ×3 (00:13→14:27)
[2019-12-14] MEDS: VERAPAMIL 80 MG PO SCH ×3 (05:14→21:49)
[2019-12-14] MEDS: CLONIDINE HCL 0.1 MG PO SCH ×3 (05:14→21:50)
[2019-12-14] MEDS: LEVOTHYROXINE SODIUM 88 MCG TABLET PO SCH (06:10)
[2019-12-14 12:16] LABS: Basophils # (auto) 0.03 K/uL (0-0.2); Basophils % (auto) 0.4 %; Eosinophils # (auto) 0.73 K/uL (0-0.5); Eosinophils % (auto) 10.9 %; Hematocrit (blood only) 40.2 % (37-47); Hemoglobin 13.6 g/dL (12.0-16.0); Immature Granulocytes # (auto) 0.02 K/uL (0.00-0.02); Immature Granulocytes % (auto) 0.3 %; Lymphocytes # (auto) 1.06 K/uL (1.2-3.4); Lymphocytes % (auto) 15.8 %; Mean Corpuscular Hemoglobin 30.4 pg (25-34); Mean Corpuscular Hgb Conc 33.8 g/dL (32-36); Mean Corpuscular Volume 89.9 fL (80-100); Mean Platelet Volume 10.3 fL (7.4-10.4); Monocytes # (auto) 0.64 K/uL (0.11-0.59); Monocytes % (auto) 9.6 %; Neutrophils # (auto) 4.22 K/uL (1.4-6.5); Platelet Count 307 K/uL (130-400); RDW Coefficient of Variation 12.6 % (11.5-14.5); RDW Standard Deviation 41.6 fL (36.4-46.3); Red Blood Count 4.47 M/uL (4.2-5.4)
[2019-12-14 12:42] LABS: BUN Creatinine Ratio 15.2 (10-20); Calcium 9.4 mg/dl (8.5-10.1); Creatinine Clr Calc Pharmacy 68.8 ml/min; Est GFR (African American) 101.5; Est GFR (Non-African American) 87.6; Potassium 3.6 mmol/L (3.5-5.1)
[2019-12-14] MEDS: ACETAMINOPHEN 65 ML IV SCH (14:24)
[2019-12-14] MEDS: DiphenhydrAMINE HCL 50 MG/ML VIAL IV SCH (14:24)
[2019-12-14] MEDS: ERTAPENEM SODIUM 1,000 MG in SODIUM CHLORIDE 0.9% 50 ML IV SCH (14:25)
[2019-12-14] MEDS: BUDESONIDE AQ (RHINOCORT AQ) NASAL SPRAY 32 MCG SCH ×2 (14:25→21:50)
[2019-12-14] MEDS: VITAMIN D3: NON-FORMULARY PATIENT'S OWN MED PO SCH (14:29)
--- NOTE | 2019-12-14 16:16 | Hospitalist Progress Note ---
Date of Service December 14, 2019 Assessment & Plan (1) Subcapital fracture of right hip: * CT of RIGHT hip with subcapital fracture, suspected on previous xray * Ortho consult -- appreciate input * patient and family wish for conservative care because of h/o difficult intubation, difficulties with anesthesia as well as multiple allergies to metals * looking into snf care at [facility] for 3-4 weeks * Will need serial xrays to determine healing, can be arranged by orthopedics plan for repeat x-ray prior to discharge * Of note, if head of femur displaced further in the future would need specialty ceramic head replacement at tertiary facility some issues swallowing Percocet last night and today, but that passed discussed trying Ultram as pain is not too intense and smaller pill she is hesitant to try new medications, RN suggested crushing Percocet, patient would like to try that instead CM working on placement, [facility] will no longer take patient on Ertapenem for UTI will look into other facilities but won't have answers over the weekend (2) Fall: * Purely mechanical * PT/OT: really she cannot participate due to complete bedrest * Will need SNF for 3-4 weeks of bedrest with likely need for acute inpatient rehab following healing of fx (3) UTI (urinary tract infection): * Recent Ecoli UTI * Finished 7 day course of ertapenem on 12/02 -- hx of multiple abx allergies * Follows with Dr. Xavier * symptoms of dysuria on 12/11, checked UA that showed > 30 WBC, urine culture sent discussed with Dr. Xavier, will use Ertapenem will treat for 14 days since she failed only 7 days of therapy previously will need pre-medicated with Tylenol IV and Benadryl urine culture growing E coli, de souza sensitive today is day 3 of therapy, last dose would be 2/7 urine still with cloudy appearance, unclear why if it persists could consider urology consult, the patient follows with Dr. Zachary Isbell as outpatient (4) Hypothyroidism: * Chronic. * TSH low at 0.272, FT4 elevated at 1.81 * Decreased morning dose to 88mcg -- will need outpatient follow up, repeat TFT in 4-6 weeks. Patient states her dose was adjusted to 100mcg back in July. Could consider alternating or doing 100mcg six days a week (5) Labile hypertension: * Hx Labile HTN. Chronic. Stable today * Continue home clonidine, Verapamil some elevations in pressure yesterday but improved with early dosing of her medications (6) Asthma: * Continue home budesonide, levalbuterol Q6 prn * Patient with post nasal drip --> Per patient, had previously been using advair -- will resume * lungs clear, no distress (7) Vitamin D deficiency: * Continue home vit D 5,000 IU daily (8) Vitamin B12 deficiency: * Hx B12 deficiency. B12 back this afternoon at 289, low normal. * continue B12 drops if she tolerates (9) Dyslipidemia: * Hx of. Unable to tolerate statins (10) DVT prophylaxis: * SCDs * could consider Xarelto on discharge, however, patient very leary of trying any new medications (41 allergies listed) Dispo: hopeful for discharge this week to SNF, but will need accepted patient's family willing to pay out of pocket since insurance unlikely to pay (11) Osteoporosis: possible osteoporosis with current pathological fracture (12) Vaginal prolapse: long standing issue has tried numerous pessaries in the past has allergic reactions to all of them external vulva very irritated, painful asked patient about hormone replacement therapy, she refuses to even consider topical agents Subjective long discussion with patient and her daughter at the bedside she reported an episode of difficulty swallowing last night and this morning last night was just with her Percocet, this morning was initially the Percocet but then she choked on water since that time it got better she felt like her throat was closing but never felt short of breath she also was feeling like her blood pressure was rising, asked RN to check and her pressure was high pressure got better after scheduled BP meds she is worried that she is getting more allergic to Ertapenem her daughter is concerned because of the appearance of her urine RN confirmed that the urine was cloudy, almost "milky" this morning checked some labs today, BMP and CBC normal Review of Systems Review of Systems: All systems reviewed & are unremarkable except as noted in HPI & below Physical Exam Constitutional: WD/WN, vitals as above + diaphoretic Eyes: PERRL, conjunctivae normal, anicteric sclerae ENMT: external ear and nose normal, oropharynx normal Neck: trachea midline, no thyromegaly Respiratory: normal respiratory effort, lungs clear to auscultation Cardiovascular: RRR, no murmur, no edema Gastrointestinal (Abdomen): normal bowel sounds, soft, nontender, no hepatosplenomegaly Musculoskeletal: no cyanosis or clubbing, extremities motor strength 5/5 Hip: + limited ROM of hip (severe pain with any movement) and + log roll test positive Skin: no rashes, warm and dry Neurologic: patellar DTR's 2+ bilat, sensation intact and PERRL, EOMI, accommodation nl, no face palsy, no dysarthria Psychiatric: A+Ox3, euthymic affect Genitourinary: + external erythema; + abnormal external appearance (vulva swollen, erythematous, tender) Lymphatic: no cervical or axillary lymphadenopathy Results & Data Vital Signs (Past 12 Hours) Vital Signs Temp Pulse Pulse Resp BP BP Pulse Ox 12/14/19 15:37 36.7 C 74 18 147/76 H 92 12/14/19 07:58 36.5 C 78 18 184/81 H 96 12/14/19 06:57 36.3 C L 71 20 189/85 H 94 12/14/19 06:10 72 146/63 H 12/14/19 05:02 76 194/82 H Laboratory Results Laboratory Results - last 24 hr 12/14/19 12/14/19 11:51 11:51 WBC 6.70 RBC 4.47 Hgb 13.6 Hct 40.2 MCV 89.9 MCH 30.4 MCHC 33.8 RDW Std Deviation 41.6 RDW Coeff of Ashley 12.6 Plt Count 307 MPV 10.3 Immature Gran % (Auto) 0.3 Neut % (Auto) 63.0 Lymph % (Auto) 15.8 Mcdowell % (Auto) 9.6 Eos % (Auto) 10.9 Baso % (Auto) 0.4 Immature Gran # (Auto) 0.02 Neut # (Auto) 4.22 Lymph # (Auto) 1.06 L Mcdowell # (Auto) 0.64 H Eos # (Auto) 0.73 H Baso # (Auto) 0.03 Sodium 137 Potassium 3.6 Chloride 102 Carbon Dioxide 29 Anion Gap 6.0 BUN 9 Creatinine 0.62 Est Cr Clr Drug Dosing 68.8 Est GFR ( Amer) 101.5 Est GFR (Non-Af Amer) 87.6 BUN/Creatinine Ratio 15.2 Glucose 114 H Calcium 9.4 Medications Administered Current Inpatient Medications Acetaminophen (Tylenol) 650 mg PO Q4H PRN PRN Reason: pain/fever Stop: 01/04/20 16:44 Last Admin: 12/10/19 18:49 Dose: 650 mg Documented by: Al Hydrox/Mg Hydrox/Simethicone (Maalox Max) 5 ml PO QID PRN PRN Reason: Gastric Reflux Stop: 01/04/20 16:44 Ascorbic Acid (Vitamin C) 500 mg PO DAILY PRN PRN Reason: Acid Reflux Stop: 01/04/20 16:44 Budesonide (Rhinocort Aq) 2 sprays NA BID FELIBERTO Stop: 01/04/20 20:59 Last Admin: 12/14/19 14:25 Dose: Not Given Documented by: Clonidine HCl (Catapres) 0.1 mg PO TID@0600,1400,2200 [facility] Stop: 01/04/20 21:59 Last Admin: 12/14/19 14:26 Dose: 0.1 mg Documented by: Diphenhydramine HCl (Benadryl Syrup) 12.5 mg PO DAILY PRN PRN Reason: ALLERGIES Stop: 01/04/20 16:58 Diphenhydramine HCl (Benadryl) 25 mg IV DAILY@0830 [facility] Stop: 01/12/20 09:14 Last Admin: 12/14/19 14:24 Dose: Not Given Documented by: Ergotamine/Caffeine (Cafergot) 1 tab PO DAILY PRN PRN Reason: Headache Stop: 01/04/20 19:59 Last Admin: 12/13/19 18:37 Dose: 1 tab Documented by: Flavoxate HCl (Urispas) 100 mg PO TID PRN PRN Reason: Bladder Spasms Stop: 01/04/20 16:44 Fluocinonide (Lidex 0.5%) 1 appln EXT BID PRN PRN Reason: AFFECTED SITES Stop: 01/09/20 09:40 Guaifenesin (Mucinex) 300 mg PO DAILY@2200 [facility] Stop: 01/05/20 21:59 Last Admin: 12/13/19 21:50 Dose: 300 mg Documented by: Ertapenem 1,000 mg/ Sodium (Chloride) 60 mls @ 100 mls/hr IV DAILY [facility]; Protocol Stop: 12/22/19 09:29 Last Admin: 12/14/19 14:25 Dose: Not Given Documented by: Acetaminophen (Ofirmev) 65 mls @ 260 mls/hr IV DAILY@0830 [facility] Stop: 12/16/19 08:29 Last Admin: 12/14/19 14:24 Dose: Not Given Documented by: Levalbuterol HCl (Xopenex Hfa) 1 puffs INH Q6H PRN PRN Reason: Shortness Of Breath Stop: 01/04/20 16:44 Levothyroxine Sodium (Synthroid) 88 mcg PO DAILY@0600 [facility] Stop: 01/06/20 05:59 Last Admin: 12/14/19 06:10 Dose: 88 mcg Documented by: Magnesium Hydroxide (Milk Of Magnesia) 30 ml PO Q6H PRN PRN Reason: Constipation Stop: 01/04/20 16:44 Methocarbamol (Robaxin) 250 - 500 mg PO BID PRN PRN Reason: Muscle Pain Stop: 01/04/20 16:44 Nitroglycerin (Nitrostat) 0.4 mg SL PRN PRN PRN Reason: Chest Pain Stop: 01/04/20 16:44 Verapamil 80 Mg: Non -Formulary Patient's Own Med 1 ea PO TID@0600,1400,2200 [facility] Stop: 01/04/20 21:59 Last Admin: 12/14/19 14:26 Dose: 80 mg Documented by: Cetirizine~Non- Formulary Patient's Own Med 1 ea PO BID PRN PRN Reason: ALLERGIES Stop: 01/06/20 21:59 Last Admin: 12/13/19 21:48 Dose: 5 ml Documented by: Vitamin D3: Non- Formulary Patient's Own Med 1 ea PO DAILY [facility] Stop: 01/07/20 08:59 Last Admin: 12/14/19 14:29 Dose: Not Given Documented by: Hydrocortisone: Non- Formulary Patient's Own Med 1 ea TOP QID PRN PRN Reason: AFFECTED SKIN Stop: 01/07/20 07:59 Last Admin: 12/08/19 17:31 Dose: 1 appln Documented by: Ondansetron HCl (Zofran Tab) 4 mg PO Q6H PRN PRN Reason: Nausea And Vomiting Stop: 01/04/20 16:44 Ondansetron HCl (Zofran) 4 mg IV Q6H PRN PRN Reason: Nausea Stop: 01/04/20 16:44 Oxycodone/Acetaminophen (Percocet 5mg/325mg) 1 tab PO Q6H PRN PRN Reason: Pain Stop: 12/19/19 16:44 Last Admin: 12/14/19 14:27 Dose: 1 tab Documented by: Fluticasone/Salmeterol (Advair Diskus 100/50) 1 puffs INH HS FELIBERTO Stop: 01/07/20 20:59 Last Admin: 12/13/19 21:50 Dose: 1 puffs Documented by: PG Care Time/CCT Total # of Minutes Spent Total Time Spent: 38 Total Time Spent with Patient: Total time spent is greater than 50% in coordination of care (as documented) at patient's floor/unit and/or counseling patient: Coding Level of Care Code 37629 Subseq Hosp Care Lvl 3 Diagnoses Subcapital fracture of right hip S72.011A Encounter type: initial encounter Fracture type: closed Fall W19.XXXA Encounter type: initial encounter UTI (urinary tract infection) N39.0 Hypothyroidism E03.9 Labile hypertension R09.89 Asthma J45.909 Vitamin D deficiency E55.9 Vitamin B12 deficiency E53.8 Dyslipidemia E78.5 DVT prophylaxis Z29.9 Osteoporosis M81.0 Vaginal prolapse N81.10 (1) Subcapital fracture of right hip Encounter type: initial encounter Fracture type: closed Qualified Code(s): S72.011A - Unspecified intracapsular fracture of right femur, initial encounter for closed fracture (2) Fall Encounter type: initial encounter Qualified Code(s): W19.XXXA - Unspecified fall, initial encounter
[2019-12-14] MEDS: GUAIFENESIN PO SCH (21:49)
[2019-12-14] MEDS: FLUTICASONE/SALMETEROL 100/50 (ADVAIR) 14 PUFF/1 INHALER INH SCH (21:50)
[2019-12-14] MEDS ORDERED: cloNIDine HCL 0.1 MG TAB PO ONE (23:16)
[2019-12-15] MEDS: ACETAMINOPHEN 325 MG TAB PO PRN ×2 (00:11→22:42)
[2019-12-15] MEDS: CAFFEINE PO PRN (00:14)
[2019-12-15] MEDS: ERGOTAMINE PO PRN (00:14)
[2019-12-15] MEDS: CLONIDINE HCL 0.1 MG PO SCH ×3 (05:15→20:54)
[2019-12-15] MEDS: VERAPAMIL 80 MG PO SCH ×3 (05:16→20:55)
[2019-12-15] MEDS: LEVOTHYROXINE SODIUM 88 MCG TABLET PO SCH (05:17)
[2019-12-15 05:42] LABS: Hematocrit (blood only) 41.9 % (37-47); Hemoglobin 14.3 g/dL (12.0-16.0); Mean Corpuscular Hemoglobin 30.7 pg (25-34); Mean Corpuscular Hgb Conc 34.1 g/dL (32-36); Mean Corpuscular Volume 89.9 fL (80-100); Mean Platelet Volume 10.2 fL (7.4-10.4); Platelet Count 321 K/uL (130-400); RDW Coefficient of Variation 12.7 % (11.5-14.5); RDW Standard Deviation 41.3 fL (36.4-46.3); Red Blood Count 4.66 M/uL (4.2-5.4); White Blood Count 6.53 K/uL (4.8-10.8)
[2019-12-15 06:27] LABS: BUN Creatinine Ratio 12.6 (10-20); Calcium 9.6 mg/dl (8.5-10.1); Creatinine Clr Calc Pharmacy 76.2 ml/min; Est GFR (Non-African American) 90.6; Potassium 3.8 mmol/L (3.5-5.1)
[2019-12-15] MEDS: DiphenhydrAMINE HCL 50 MG/ML VIAL IV SCH (08:20)
[2019-12-15] MEDS: ERTAPENEM SODIUM 1,000 MG in SODIUM CHLORIDE 0.9% 50 ML IV SCH (08:20)
[2019-12-15] MEDS: ACETAMINOPHEN 65 ML IV SCH (08:20)
[2019-12-15] MEDS: BUDESONIDE AQ (RHINOCORT AQ) NASAL SPRAY 32 MCG SCH ×2 (08:24→20:53)
[2019-12-15] MEDS: VITAMIN D3: NON-FORMULARY PATIENT'S OWN MED PO SCH (08:26)
[2019-12-15] MEDS: ALUMINUM/MAGNESIUM/SIMETH (MAALOX MAX) 30 ML UDC PO PRN ×2 (08:32→18:11)
--- NOTE | 2019-12-15 10:52 | Hospitalist Progress Note ---
Date of Service December 15, 2019 Assessment & Plan (1) Subcapital fracture of right hip: * CT of RIGHT hip with subcapital fracture, suspected on previous xray * Ortho consult -- appreciate input * patient and family wish for conservative care because of h/o difficult intubation, difficulties with anesthesia as well as multiple allergies to metals * looking into intermediate care at [place] for 3-4 weeks * Will need serial xrays to determine healing, can be arranged by orthopedics --> discussion tonight with plan to repeat xray this evening -- will need weekly once at SNF * Of note, if head of femur displaced further in the future would need specialty ceramic head replacement at tertiary facility * CM following, as previous facility unable to accept with IV Ertapenem -- [facility] pending (2) Fall: * Purely mechanical * PT/OT: really she cannot participate due to complete bedrest * Will need SNF for 3-4 weeks of bedrest with likely need for acute inpatient rehab following healing of fx (3) UTI (urinary tract infection): * Recent Ecoli UTI * Finished 7 day course of ertapenem on 12/02 -- hx of multiple abx allergies * Follows with Dr. Xavier * symptoms of dysuria on 12/11, checked UA that showed > 30 WBC, urine culture sent discussed with Dr. Xavier, will use Ertapenem will treat for 14 days since she failed only 7 days of therapy previously will need pre-medicated with Tylenol IV and Benadryl urine culture growing E coli, de souza sensitive Last dose would be /, however patient refused yesterday and today Ertapenem * ID consult placed -- appreciate input (4) Hypothyroidism: * Chronic. * TSH low at 0.272, FT4 elevated at 1.81 * Decreased morning dose to 88mcg -- will need outpatient follow up, repeat TFT in 4-6 weeks. Patient states her dose was adjusted to 100mcg back in July. Could consider alternating or doing 100mcg six days a week (5) Labile hypertension: * Hx Labile HTN. Chronic. Elevated slightly at 167/79 * Continue home clonidine, Verapamil elevations in pressure improved with early dosing of her medications (6) Asthma: * Continue home budesonide, levalbuterol Q6 prn * Patient with post nasal drip --> Per patient, had previously been using advair -- will resume * lungs clear, no distress (7) Vitamin D deficiency: * Continue home vit D 5,000 IU daily (8) Vitamin B12 deficiency: * Hx B12 deficiency. B12 at 289, low normal. * Continue B12 drops if she tolerates (9) Dyslipidemia: * Hx of. Unable to tolerate statins (10) Osteoporosis: * possible osteoporosis with current pathological fracture. * Continue Vit D supplementation (11) Vaginal prolapse: * long standing issue * has tried numerous pessaries in the past * has allergic reactions to all of them * external vulva very irritated, painful * asked patient about hormone replacement therapy, she refuses to even consider topical agents (12) DVT prophylaxis: * SCDs * could consider Xarelto on discharge, however, patient very leary of trying any new medications (41 allergies listed) Dispo: hopeful for discharge this week to SNF, but will need accepted patient's family willing to pay out of pocket since insurance unlikely to pay Supervising Physician Co-Signing Physician Notes PA Supervision Note: I did not personally see or examine the patient today, but I verified all jansen points of REJI Holly's assessment and plan with the following exceptions/additions: None Subjective Patient evaluated at bedside this morning. Concerns regarding reaction to Ertapenem. Discussed previous attending conversation with ID and recommendations for 14 days of Ertapenem. Patient would like to hear from Dr. Xavier prior to re-initiating this antibiotic. She admits she does have increased urinary frequency but denies any pain with urination. Some cloudiness of her urine, although she had been applying cream to irritated vulva and believes this may have been what the cloudiness was from. She states her pain has been tolerable with pain medications. She believes she may have had difficulty swallowing percocet yesterday morning but hasn't had difficulty since that time. She also had a concurrent headache yesterday, with elevation in her BP. States some uncomfortableness with using the bedpan and attempting to have a bowel movement. Denies any recent fever or chills, chest pain, shortness of breath, abdominal pain, nausea, vomiting. Plans for repeat imaging and hopeful SNF at discharge, however will need to find a facility to accept with IV abx and pre-treatment. Review of Systems Review of Systems: All systems reviewed & are unremarkable except as noted in HPI & below Physical Exam Constitutional: WD/WN, vitals as above no acute distress Eyes: + anicteric sclerae and PERRL Neck: trachea midline, no thyromegaly Respiratory: normal respiratory effort, lungs clear to auscultation Cardiovascular: RRR, no murmur, no edema Gastrointestinal (Abdomen): normal bowel sounds, soft, nontender, no hepa tosplenomegaly Musculoskeletal: Head/Neck/Chest: normocephalic and head atraumatic Extremities: strength 5/5 throughout Skin: no rashes, warm and dry Neurologic: PERRL, EOMI, accommodation nl, no face palsy, no dysarthria Psychiatric: A+Ox3, euthymic affect Genitourinary: erythema of vulva Results & Data Vital Signs (Past 12 Hours) Vital Signs Temp Pulse Pulse Resp BP BP Pulse Ox 12/15/19 07:50 36.3 C L 69 16 136/77 95 12/15/19 06:17 188/77 H 12/15/19 05:32 213/95 H 12/15/19 03:57 149/67 H 12/15/19 00:36 180/72 H 12/14/19 22:58 36.7 C 65 16 195/67 H 201/93 H 93 Laboratory Results 12/15/19 12/15/19 Range/Units 05:34 05:34 WBC 6.53 (4.8-10.8) K/uL RBC 4.66 (4.2-5.4) M/uL Hgb 14.3 (12.0-16.0) g/dL Hct 41.9 (37-47) % MCV 89.9 (80-100) fL MCH 30.7 (25-34) pg MCHC 34.1 (32-36) g/dL RDW Std Deviation 41.3 (36.4-46.3) fL RDW Coeff of Ashley 12.7 (11.5-14.5) % Plt Count 321 (130-400) K/uL MPV 10.2 (7.4-10.4) fL Sodium 138 (136-145) mmol/L Potassium 3.8 (3.5-5.1) mmol/L Chloride 105 (98-107) mmol/L Carbon Dioxide 28 (21-32) mmol/L Anion Gap 5.0 (3-11) BUN 7 (7-18) mg/dl Creatinine 0.56 L (0.6-1.2) mg/dl Est Cr Clr Drug Dosing 76.2 ml/min Est GFR ( Amer) 105.0 Est GFR (Non-Af Amer) 90.6 BUN/Creatinine Ratio 12.6 (10-20) Glucose 132 H (70-99) mg/dl Calcium 9.6 (8.5-10.1) mg/dl PG Care Time/CCT Total # of Minutes Spent Total Time Spent with Patient: Total time spent is greater than 50% in coordination of care (as documented) at patient's floor/unit and/or counseling patient: Coding Level of Care Code 20027 Subseq Hosp Care Lvl 3 Diagnoses Subcapital fracture of right hip S72.011A Encounter type: initial encounter Fracture type: closed Fall W19.XXXA Encounter type: initial encounter UTI (urinary tract infection) N39.0 Hypothyroidism E03.9 Labile hypertension R09.89 Asthma J45.909 Vitamin D deficiency E55.9 Vitamin B12 deficiency E53.8 Dyslipidemia E78.5 Osteoporosis M81.0 Vaginal prolapse N81.10 DVT prophylaxis Z29.9 (1) Subcapital fracture of right hip Encounter type: initial encounter Fracture type: closed Qualified Code(s): S72.011A - Unspecified intracapsular fracture of right femur, initial encounter for closed fracture (2) Fall Encounter type: initial encounter Qualified Code(s): W19.XXXA - Unspecified fall, initial encounter
[2019-12-15] MEDS: GUAIFENESIN PO SCH (20:54)
[2019-12-15] MEDS: FLUTICASONE/SALMETEROL 100/50 (ADVAIR) 14 PUFF/1 INHALER INH SCH (20:58)
--- NOTE | 2019-12-15 22:53 | XRay Report ---
XR hip RT 2V w pelvis CLINICAL HISTORY: Right subcapital fracture COMPARISON: 12/05/2019 DISCUSSION: Unchanged position of a right subcapital fracture. No evidence for acetabular protrusion. Moderate degenerative change of all remaining bony structures. There is no evidence for soft tissue swelling. IMPRESSION: Unchanged subcapital fracture right hip. ACT 112: Negative or not required by law. The above report was generated using voice recognition software. It may contain grammatical, syntax or spelling errors. Electronically signed by: Leo Jorge M.D. 12/15/2019 10:51 PM
[2019-12-16] MEDS: CLONIDINE HCL 0.1 MG PO SCH ×3 (06:08→21:07)
[2019-12-16] MEDS: VERAPAMIL 80 MG PO SCH ×3 (06:08→21:07)
[2019-12-16 06:13] LABS: Hematocrit (blood only) 43.3 % (37-47); Hemoglobin 14.3 g/dL (12.0-16.0); Mean Corpuscular Hemoglobin 29.7 pg (25-34); Mean Platelet Volume 10.4 fL (7.4-10.4); Platelet Count 321 K/uL (130-400); RDW Coefficient of Variation 12.7 % (11.5-14.5); RDW Standard Deviation 41.5 fL (36.4-46.3); Red Blood Count 4.81 M/uL (4.2-5.4); White Blood Count 6.15 K/uL (4.8-10.8)
[2019-12-16] MEDS: LEVOTHYROXINE SODIUM 88 MCG TABLET PO SCH (06:13)
[2019-12-16 06:48] LABS: BUN Creatinine Ratio 18.1 (10-20); Calcium 9.7 mg/dl (8.5-10.1); Creatinine Clr Calc Pharmacy 68.8 ml/min; Est GFR (African American) 101.5; Est GFR (Non-African American) 87.6; Potassium 3.7 mmol/L (3.5-5.1)
--- NOTE | 2019-12-16 07:10 | Communication Note ---
Date of Service: December 16, 2019 Repeat pelvis/hip film done yesterday. Films reviewed with Dr Ndiaye. No overt changes noted to right hip fracture. Continue bedrest for now with gentle logrolling for bathing etc. Repeat film in one week.
[2019-12-16] MEDS: BUDESONIDE AQ (RHINOCORT AQ) NASAL SPRAY 32 MCG SCH ×2 (09:52→21:04)
[2019-12-16] MEDS: VITAMIN D3: NON-FORMULARY PATIENT'S OWN MED PO SCH (09:53)
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
[2019-12-16] MEDS: ERTAPENEM SODIUM 1,000 MG in SODIUM CHLORIDE 0.9% 50 ML IV SCH (13:27)
[2019-12-16] MEDS: DiphenhydrAMINE HCL 50 MG/ML VIAL IV SCH (13:27)
--- NOTE | 2019-12-16 17:23 | Hospitalist Progress Note ---
Date of Service December 16, 2019 Assessment & Plan (1) Subcapital fracture of right hip: * CT of RIGHT hip with subcapital fracture, suspected on previous xray * Ortho consult -- appreciate input * patient and family wish for conservative care because of h/o difficult intubation, difficulties with anesthesia as well as multiple allergies to metals. looking into half-way care at [place] for 3-4 weeks * Will need serial xrays to determine healing, can be arranged by orthopedics --> repeat xray 12/15 without further displacement -- will continue with bedrest for next 3-4 weeks with plan for weekly imaging once at SNF * Of note, if head of femur displaced further in the future would need specialty ceramic head replacement at tertiary facility * CM following, as previous facility unable to accept with IV Ertapenem -- [facility] pending (2) Fall: * Purely mechanical * PT/OT: really she cannot participate due to complete bedrest * Will need SNF for 3-4 weeks of bedrest with likely need for acute inpatient rehab following healing of fx (3) UTI (urinary tract infection): * Recent Ecoli UTI * Finished 7 day course of ertapenem on 12/02 -- hx of multiple abx allergies * Follows with Dr. Xavier * symptoms of dysuria on 12/11, checked UA that showed > 30 WBC, urine culture sent -- previously discussed with Dr. Xavier and decision to use Ertapenem for 14 days Last dose would be 12/26, however patient refused yesterday and today Ertapenem * ID consult placed -- appreciate input -- as patient continues to be asymptomatic since she has been refusing abx, no indication for additional treatment at this time -- this will make placement easier, as the IV ertapenem and pretreatment had limited options (4) Hypothyroidism: * Chronic. * TSH low at 0.272, FT4 elevated at 1.81 * Decreased morning dose to 88mcg -- will need outpatient follow up, repeat TFT in 4-6 weeks. Patient states her dose was adjusted to 100mcg back in July. Could consider alternating or doing 100mcg six days a week (5) Labile hypertension: * Hx Labile HTN. Chronic. Elevated slightly at 167/79 * Continue home clonidine, Verapamil * Elevations in pressure improved with early dosing of her medications (6) Asthma: * Continue home budesonide, levalbuterol Q6 prn * Patient with post nasal drip --> Per patient, had previously been using advair -- will resume * lungs clear, no distress (7) Vitamin D deficiency: * Continue home vit D 5,000 IU daily (8) Vitamin B12 deficiency: * Hx B12 deficiency. B12 at 289, low normal. * Continue B12 drops if she tolerates (9) Dyslipidemia: * Hx of. Unable to tolerate statins (10) Osteoporosis: * possible osteoporosis with current pathological fracture. * Continue Vit D supplementation (11) Vaginal prolapse: * long standing issue * has tried numerous pessaries in the past * has allergic reactions to all of them * external vulva very irritated, painful * asked patient about hormone replacement therapy, she refuses to even consider topical agents (12) Rash: * Left breast * Antifungal barrier cream * Continue to monitor (13) DVT prophylaxis: * SCDs * could consider Xarelto on discharge, however, patient very leary of trying any new medications (41 allergies listed) Dispo: hopeful for discharge this week to SNF, but will need accepted -- [facility] not likely to have a bed this week. [facility] to review in AM. CM following. Supervising Physician Co-Signing Physician Notes PA Supervision Note: I did not personally see or examine the patient today, but I verified all jansen points of REJI Holly's assessment and plan with the following exceptions/additions: None Subjective Patient seen by Infectious Disease this morning. Patient states that Dr. Xavier also agrees with holding off on abx at this time. Having minimal discomfort in her hip but has been tolerating tylenol without difficulty. States she has not needed percocet in the last day and a half. Reviewed x-rays and plan to continue with bedrest moving forward. Awaiting bed placement at this time. Hopeful for discharge later this week. Discussion this afternoon regarding rash to left breast. Itchy initially but improved with topical antifungal. Talked to daughter on phone at bedside with patient permission. Concerns regarding medications and fillers once at [facility]. Will discuss with CM tomorrow to ensure patient able to either use her own or the name brands of specific medications, ie Synthroid. Denies fevers, chills, chest pain, shortness of breath, abdominal pain, n/v/d/c. Review of Systems Review of Systems: All systems reviewed & are unremarkable except as noted in HPI & below Constitutional: no fever and no chills Eyes: no diplopia and no problem reported Respiratory: no cough and no dyspnea Cardiovascular: no chest pain, no palpitations and no edema Gastrointestinal: no abdominal pain, no nausea and no vomiting Genitourinary: no dysuria and no urinary frequency Musculoskeletal: right hip pain Integumentary: + rash Physical Exam Constitutional: WD/WN, vitals as above no acute distress Eyes: + anicteric sclerae and PERRL ENMT: dentures Neck: trachea midline, no thyromegaly Respiratory: normal respiratory effort, lungs clear to auscultation Cardiovascular: RRR, no murmur, no edema Gastrointestinal (Abdomen): normal bowel sounds, soft, nontender, no hepatosplenomegaly Musculoskeletal: Head/Neck/Chest: normocephalic and head atraumatic Extremities: strength 5/5 throughout Skin: erythema of back, posterior elbow, as well as buttocks scaling rash to left breast. no evidence of sattelite lesions. dry healing bruise left hip, lateral aspect Neurologic: PERRL, EOMI, accommodation nl, no face palsy, no dysarthria Psychiatric: A+Ox3, euthymic affect Lymphatic: no cervical or axillary lymphadenopathy Results & Data Vital Signs (Past 12 Hours) Vital Signs Temp Pulse Resp BP Pulse Ox 12/16/19 13:00 171/92 H 12/16/19 07:18 36.4 C L 64 17 122/69 94 Laboratory Results 12/16/19 12/16/19 Range/Units 05:59 05:59 WBC 6.15 (4.8-10.8) K/uL RBC 4.81 (4.2-5.4) M/uL Hgb 14.3 (12.0-16.0) g/dL Hct 43.3 (37-47) % MCV 90.0 (80-100) fL MCH 29.7 (25-34) pg MCHC 33.0 (32-36) g/dL RDW Std Deviation 41.5 (36.4-46.3) fL RDW Coeff of Ashley 12.7 (11.5-14.5) % Plt Count 321 (130-400) K/uL MPV 10.4 (7.4-10.4) fL Sodium 137 (136-145) mmol/L Potassium 3.7 (3.5-5.1) mmol/L Chloride 103 (98-107) mmol/L Carbon Dioxide 28 (21-32) mmol/L Anion Gap 6.0 (3-11) BUN 11 D (7-18) mg/dl Creatinine 0.62 (0.6-1.2) mg/dl Est Cr Clr Drug Dosing 68.8 ml/min Est GFR ( Amer) 101.5 Est GFR (Non-Af Amer) 87.6 BUN/Creatinine Ratio 18.1 (10-20) Glucose 105 H (70-99) mg/dl Calcium 9.7 (8.5-10.1) mg/dl PG Care Time/CCT Total # of Minutes Spent Total Time Spent with Patient: Total time spent is greater than 50% in coordination of care (as documented) at patient's floor/unit and/or counseling patient: Coding Level of Care Code 60459 Subseq Hosp Care Lvl 3 Diagnoses Subcapital fracture of right hip S72.011A Encounter type: initial encounter Fracture type: closed Fall W19.XXXA Encounter type: initial encounter UTI (urinary tract infection) N39.0 Hypothyroidism E03.9 Labile hypertension R09.89 Asthma J45.909 Vitamin D deficiency E55.9 Vitamin B12 deficiency E53.8 Dyslipidemia E78.5 Osteoporosis M81.0 Vaginal prolapse N81.10 Rash R21 DVT prophylaxis Z29.9 (1) Subcapital fracture of right hip Encounter type: initial encounter Fracture type: closed Qualified Code(s): S72.011A - Unspecified intracapsular fracture of right femur, initial encounter for closed fracture (2) Fall Encounter type: initial encounter Qualified Code(s): W19.XXXA - Unspecified fall, initial encounter
[2019-12-16] MEDS: FLUTICASONE/SALMETEROL 100/50 (ADVAIR) 14 PUFF/1 INHALER INH SCH (21:03)
[2019-12-16] MEDS: GUAIFENESIN PO SCH (21:09)
[2019-12-17] MEDS: CAFFEINE PO PRN (03:59)
[2019-12-17] MEDS: ERGOTAMINE PO PRN (03:59)
[2019-12-17] MEDS: CLONIDINE HCL 0.1 MG PO SCH ×3 (05:25→21:32)
[2019-12-17] MEDS: VERAPAMIL 80 MG PO SCH ×3 (05:25→21:34)
[2019-12-17] MEDS: LEVOTHYROXINE SODIUM 88 MCG TABLET PO SCH (05:26)
[2019-12-17] MEDS: CETIRIZINE PO PRN ×2 (08:14→19:57)
[2019-12-17] MEDS: ERTAPENEM SODIUM 1,000 MG in SODIUM CHLORIDE 0.9% 50 ML IV SCH (08:14)
[2019-12-17] MEDS: VITAMIN D3: NON-FORMULARY PATIENT'S OWN MED PO SCH (08:14)
[2019-12-17] MEDS: BUDESONIDE AQ (RHINOCORT AQ) NASAL SPRAY 32 MCG SCH ×2 (08:15→19:57)
[2019-12-17] MEDS: DiphenhydrAMINE HCL 50 MG/ML VIAL IV SCH (13:01)
--- NOTE | 2019-12-17 16:20 | Hospitalist Progress Note ---
Date of Service December 17, 2019 Assessment & Plan (1) Subcapital fracture of right hip: * CT of RIGHT hip with subcapital fracture, suspected on previous xray * Ortho consult -- appreciate input * patient and family wish for conservative care because of h/o difficult intubation, difficulties with anesthesia as well as multiple allergies to metals. looking into shelter care at [place] for 3-4 weeks * Will need serial xrays to determine healing, can be arranged by orthopedics --> repeat xray 12/15 without further displacement -- will continue with bedrest for next 3-4 weeks with plan for weekly imaging once at SNF * Of note, if head of femur displaced further in the future would need specialty ceramic head replacement at tertiary facility * CM following, as previous facility unable to accept with IV Ertapenem -- [facility] bed availability (2) Fall: * Purely mechanical * PT/OT: really she cannot participate due to complete bedrest * Will need SNF for 3-4 weeks of bedrest with likely need for acute inpatient rehab following healing of fx (3) UTI (urinary tract infection): * Recent Ecoli UTI * Finished 7 day course of ertapenem on 12/02 -- hx of multiple abx allergies * Follows with Dr. Xavier * symptoms of dysuria on 12/11, checked UA that showed > 30 WBC, urine culture sent -- previously discussed with Dr. Xavier and decision to use Ertapenem for 14 days. Patient had been refusing, as she believes she was having reaction * ID consult placed -- appreciate input -- as patient continues to be asymptomatic since she has been refusing abx, no indication for additional treatment at this time -- this will make placement easier, as the IV ertapenem and pretreatment had limited options (4) Hypothyroidism: * Chronic. * TSH low at 0.272, FT4 elevated at 1.81 * Decreased morning dose to 88mcg -- will need outpatient follow up, repeat TFT in 4-6 weeks. Patient states her dose was adjusted to 100mcg back in mb. Could consider alternating or doing 100mcg six days a week (5) Labile hypertension: * Hx Labile HTN. Chronic. Currently stable at 138/72 * Continue home clonidine, Verapamil * Elevations in pressure improved with early dosing of her medications (6) Asthma: * Continue home budesonide, levalbuterol Q6 prn * Patient with post nasal drip * continue Advair-refuses at times * lungs clear, no distress (7) Vitamin D deficiency: * Continue home vit D 5,000 IU daily (8) Vitamin B12 deficiency: * Hx B12 deficiency. B12 at 289, low normal. * Continue B12 drops if she tolerates (9) Dyslipidemia: * Hx of. Unable to tolerate statins (10) Osteoporosis: * Possible osteoporosis with current pathological fracture. * Continue Vit D supplementation (11) Vaginal prolapse: * long standing issue * has tried numerous pessaries in the past * has allergic reactions to all of them * external vulva very irritated, painful * asked patient about hormone replacement therapy, she refuses to even consider topical agents (12) Rash: * Left breast. Antifungal barrier cream. Topical salve daughter to bring in this afternoon. Also with erythema of buttocks, back, posterior elbow region. Could consider topical steroid cream if salve without improvement. * Will consult wound RN to see about options to best prevent breakdown given patient to remain on bedrest for ~3 + weeks (13) DVT prophylaxis: * SCDs * could consider Xarelto on discharge, however, patient very leary of trying any new medications (41 allergies listed). Discussion again today regarding xarelto vs eliquis vs even aspirin, and patient states that she had tried aspirin, and even HALF and aspirin at the instruction of Dr. Blanton, and she had severe epistaxis. So, patient refusing at this time. Dispo: hopeful for discharge this week to SNF, but will need accepted -- [facility] not likely to have a bed this week. [facility] possibly with bed later this week. CM following. Supervising Physician Co-Signing Physician Notes PA Supervision Note: I did not personally see or examine the patient today, but I verified all jansen points of REJI Holly's assessment and plan with the following exceptions/additions: None Subjective Patient evaluated at bedside this morning with daughter present via cell phone on speaker. Patient did have some elevated BP overnight into this morning with associated headache, but the patient states that after she received half a Cafergot (as prescribed by neurology as outpatient) it completely resolved and she did not need to take the other half. Discussion regarding possible contact dermatitis/irritation from gown/linen, and daughter is going to bring in bedding from home. Patient states it is no longer itchy. She had been applying antifungal barrier cream with some relief.Throat feeling better with use of Mylanta. Denies any chest pain, fever, chills, chest pain, shortness of breath, abdominal pain, dysuria or urinary frequency. Patient and daughter expressed that they will only accept private room and [facility] is their first choice, with [facility] as a back up. Explained that [facility] likely not to have a bed until next week. [facility] currently without private room. Daughter states she would pay for [facility] and transportation to [facility] when bed available. Concerns regarding possible complications and need for hospitalization, which they are requesting that they be rtransported to [facility], as all of her providers are in this area and [facility]. Daughter also going to bring in topical soothing salve to apply to patients backside to see if that helps. Review of Systems Review of Systems: All systems reviewed & are unremarkable except as noted in HPI & below Physical Exam Constitutional: WD/WN, vitals as above no acute distress Eyes: + anicteric sclerae and PERRL Neck: trachea midline, no thyromegaly Respiratory: normal respiratory effort, lungs clear to auscultation Cardiovascular: RRR, no murmur, no edema Chest (Breasts): Additional Comments: scaling rash to left breast. no evidence of sattelite lesions. dry Gastrointestinal (Abdomen): normal bowel sounds, soft, nontender, no hepatosplenomegaly Musculoskeletal: Head/Neck/Chest: normocephalic and head atraumatic Extremities: strength 5/5 throughout Skin: dry skin with mild scaling/erythema to posterior elbows erythema of bilateral buttocks healing bruise left hip, posterior/lateral aspect Neurologic: PERRL, EOMI, accommodation nl, no face palsy, no dysarthria Psychiatric: A+Ox3, euthymic affect Lymphatic: no cervical or axillary lymphadenopathy Results & Data Vital Signs (Past 12 Hours) Vital Signs Temp Pulse Resp BP Pulse Ox 12/17/19 15:05 36.8 C 90 18 138/72 93 12/17/19 13:52 95 H 18 137/69 97 12/17/19 07:53 36.5 C 76 17 136/65 93 12/17/19 05:25 73 137/74 12/17/19 04:55 80 157/75 H 95 PG Care Time/CCT Total # of Minutes Spent Total Time Spent with Patient: Total time spent is greater than 50% in coordination of care (as documented) at patient's floor/unit and/or counseling patient: Prolonged Care Time Total Prolonged Care Time: 55 Total time spent at patient's bedside, phone conversation discussing plan with daughter, answering all questions/concerns, multiple conversations coordinating care with case management as well as reviewing chart Coding Level of Care Code 82585 Subseq Hosp Care Lvl 2 (25 - SIGNIFICANT, SEPARATELY IDENTIFIABLE ) Diagnoses Subcapital fracture of right hip S72.011A Encounter type: initial encounter Fracture type: closed Fall W19.XXXA Encounter type: initial encounter UTI (urinary tract infection) N39.0 Hypothyroidism E03.9 Labile hypertension R09.89 Asthma J45.909 Vitamin D deficiency E55.9 Vitamin B12 deficiency E53.8 Dyslipidemia E78.5 Osteoporosis M81.0 Vaginal prolapse N81.10 Rash R21 DVT prophylaxis Z29.9 (1) Subcapital fracture of right hip Encounter type: initial encounter Fracture type: closed Qualified Code(s): S72.011A - Unspecified intracapsular fracture of right femur, initial encounter for closed fracture (2) Fall Encounter type: initial encounter Qualified Code(s): W19.XXXA - Unspecified fall, initial encounter
[2019-12-17] MEDS: FLUTICASONE/SALMETEROL 100/50 (ADVAIR) 14 PUFF/1 INHALER INH SCH (19:54)
[2019-12-17] MEDS: GUAIFENESIN PO SCH (21:33)
[2019-12-18] MEDS: VERAPAMIL 80 MG PO SCH ×3 (06:33→21:07)
[2019-12-18] MEDS: LEVOTHYROXINE SODIUM 88 MCG TABLET PO SCH (06:33)
[2019-12-18] MEDS: CLONIDINE HCL 0.1 MG PO SCH ×3 (06:34→21:06)
[2019-12-18] MEDS: CETIRIZINE PO PRN ×2 (09:07→21:03)
[2019-12-18] MEDS: VITAMIN D3: NON-FORMULARY PATIENT'S OWN MED PO SCH (09:07)
[2019-12-18] MEDS: DiphenhydrAMINE HCL 50 MG/ML VIAL IV SCH (09:39)
[2019-12-18] MEDS: BUDESONIDE AQ (RHINOCORT AQ) NASAL SPRAY 32 MCG SCH ×2 (09:39→21:01)
--- NOTE | 2019-12-18 14:12 | Hospitalist Progress Note ---
Date of Service December 18, 2019 Assessment & Plan (1) Subcapital fracture of right hip: * CT of RIGHT hip with subcapital fracture, suspected on previous xray * Ortho consult -- appreciate input * patient and family wish for conservative care because of h/o difficult intubation, difficulties with anesthesia as well as multiple allergies to metals. looking into [facility] care at [place] for 3-4 weeks * Will need serial xrays to determine healing, can be arranged by orthopedics --> repeat xray 12/15 without further displacement -- will continue with bedrest for next 3-4 weeks with plan for weekly imaging once at SNF. Per discussion with ortho, may possibly be able to do bed to chair transfers at three weeks, which would allow for patient to participate in some level of therapy. * Of note, if head of femur displaced further in the future would need specialty ceramic head replacement at tertiary facility * CM following, as previous facility unable to accept with IV Ertapenem -- [facility] bed availability (2) Fall: * Purely mechanical * PT/OT: really she cannot participate due to complete bedrest * Will need SNF for 3-4 weeks of bedrest with likely need for acute inpatient rehab following healing of fx (3) UTI (urinary tract infection): * Recent Ecoli UTI * Finished 7 day course of ertapenem on 12/02 -- hx of multiple abx allergies * Follows with Dr. Xavier * symptoms of dysuria on 12/11, checked UA that showed > 30 WBC, urine culture sent -- previously discussed with Dr. Xavier and decision to use Ertapenem for 14 days. Patient had been refusing, as she believes she was having reaction * ID consult placed -- appreciate input -- as patient continues to be asymptomatic since she has been refusing abx, no indication for additional treatment at this time -- this will make placement easier, as the IV ertapenem and pretreatment had limited options (4) Hypothyroidism: * Chronic. * TSH low at 0.272, FT4 elevated at 1.81 * Decreased morning dose to 88mcg -- will need outpatient follow up, repeat TFT in 4-6 weeks. Patient states her dose was adjusted to 100mcg back in July. Could consider alternating or doing 100mcg six days a week (5) Labile hypertension: * Hx Labile HTN. Chronic. Currently slightly elevated but stable at 161/77 -- patient asymptomatic * Continue home clonidine, Verapamil * Elevations in pressure improved with early dosing of her medications (6) Asthma: * Continue home budesonide, levalbuterol Q6 prn * Patient with post nasal drip * continue Advair-refuses at times * lungs clear, no distress (7) Vitamin D deficiency: * Continue home vit D 5,000 IU daily (8) Vitamin B12 deficiency: * Hx B12 deficiency. B12 at 289, low normal. * Continue B12 drops (9) Dyslipidemia: * Hx of. Unable to tolerate statins (10) Osteoporosis: * Possible osteoporosis with current pathological fracture. * Continue Vit D supplementation (11) Vaginal prolapse: * long standing issue * has tried numerous pessaries in the past * has allergic reactions to all of them * external vulva very irritated, painful * asked patient about hormone replacement therapy, she refuses to even consider topical agents (12) Rash: * Left breast. Antifungal barrier cream. Topical salve daughter to bring in this afternoon. Also with erythema of buttocks, back, posterior elbow region. Could consider topical steroid cream if salve without improvement. * Will consult wound RN to see about options to best prevent breakdown given patient to remain on bedrest for ~3 + weeks * Discussed with wound RN -- possibly could benefit from different bed, but would not want to compromise hip -- if we could assure she doesn't sink in too deeply we could pursue this --- given complicated case, will continue to monitor for skin breakdown for now but keep that in mind if worsens. Would not want to compromise healing hip as it has been stable since the bed may adjust as patient moves around. (13) DVT prophylaxis: * SCDs * could consider Xarelto on discharge, however, patient very leery of trying any new medications (41 allergies listed). Discussion again today regarding Xarelto vs Eliquis vs even aspirin, and patient states that she had tried a spirin, and even HALF and aspirin at the instruction of Dr. Blanton, and she had severe epistaxis. So, patient refusing at this time. Dispo: hopeful for discharge this week to SNF, but will need accepted. Possibility for discharge home with home health vs hired caregivers , but after discussion with family they are not willing to pursue this option. CM continuing efforts for bed. Will obtain nasal swab this evening. If negative, will have repeat conversation with patient and daughter regarding semi-private room if becomes available prior to private room with the hopes to transition. Supervising Physician Co-Signing Physician Notes PA Supervision Note: I did not personally see or examine the patient today, but I verified all jansen points of REJI Holly's assessment and plan with the following exceptions/additions: None Subjective Patient evaluated at bedside with daughter, sister and other family at bedside. Patient was getting her hair washed and cleaned up. She has been applying aveeno to her back and breast and states she no longer has any itching. States she feels much better. Denies much pain in her hip. Had some boost but did have a little bit of indigestion. Family brought in own linens. Lengthy discussion regarding medical clearance and need/want for private vs single room. Discussed options. Patient and family not comfortable with patient returning home with either personal care or home health due to physical restraints and dirty house due to patient being sick for lengthy time. Discussed obtaining nasal swab this evening and if negative, may need to consider semi-private room. Review of Systems 2 Review of Systems: All systems reviewed & are unremarkable except as noted in HPI & below Physical Exam Physical Exam: Constitutional WD/WN, vitals as above no acute distress Eyes + anicteric sclerae and PERRL Neck trachea midline, no thyromegaly Respiratory normal respiratory effort, lungs clear to auscultation Cardiovascular RRR, no murmur, no edema Chest (Breasts) Additional Comments: scaling rash to left breast. decreased erythema Gastrointestinal (Abdomen) normal bowel sounds, soft, nontender, no hepatosplenomegaly Musculoskeletal Head/Neck/Chest: normocephalic and head atraumatic Extremities: strength 5/5 throughout Skin erythema to posterior aspect bilateral elbows improved erythema of bilateral buttock and upper back improved, no longer dry healing bruise left hip, posterior/lateral aspect, minimally tender to palpation Neurologic PERRL, EOMI, accommodation nl, no face palsy, no dysarthria Psychiatric A+Ox3, euthymic affect. Anxious affect Results & Data ([facility]) Vital Signs (Past 12 Hours) Vital Signs Temp Pulse Resp BP Pulse Ox 12/18/19 08:29 36.5 C 68 17 103/65 97 PG Care Time/CCT Total # of Minutes Spent Total Time Spent with Patient: Total time spent is greater than 50% in coordination of care (as documented) at patient's floor/unit and/or counseling patient: Coding Level of Care Code 40451 Subseq Hosp Care Lvl 2 Diagnoses Subcapital fracture of right hip S72.011A Encounter type: initial encounter Fracture type: closed Fall W19.XXXA Encounter type: initial encounter UTI (urinary tract infection) N39.0 Hypothyroidism E03.9 Labile hypertension R09.89 Asthma J45.909 Vitamin D deficiency E55.9 Vitamin B12 deficiency E53.8 Dyslipidemia E78.5 Osteoporosis M81.0 Vaginal prolapse N81.10 Rash R21 DVT prophylaxis Z29.9 (1) Subcapital fracture of right hip Encounter type: initial encounter Fracture type: closed Qualified Code(s): S72.011A - Unspecified intracapsular fracture of right femur, initial encounter for closed fracture (2) Fall Encounter type: initial encounter Qualified Code(s): W19.XXXA - Unspecified fall, initial encounter
[2019-12-18] MEDS: FLUTICASONE/SALMETEROL 100/50 (ADVAIR) 14 PUFF/1 INHALER INH SCH ×2 (21:02→21:03)
[2019-12-18] MEDS: GUAIFENESIN PO SCH (21:09)
[2019-12-19] MEDS: CLONIDINE HCL 0.1 MG PO SCH ×3 (05:52→22:02)
[2019-12-19] MEDS: VERAPAMIL 80 MG PO SCH ×3 (05:52→22:01)
[2019-12-19] MEDS: LEVOTHYROXINE SODIUM 88 MCG TABLET PO SCH (06:08)
[2019-12-19] MEDS: ACETAMINOPHEN 325 MG TAB PO PRN (07:08)
[2019-12-19] MEDS: VITAMIN D3: NON-FORMULARY PATIENT'S OWN MED PO SCH (09:20)
[2019-12-19] MEDS: BUDESONIDE AQ (RHINOCORT AQ) NASAL SPRAY 32 MCG SCH ×3 (09:20→22:01)
[2019-12-19] MEDS: CETIRIZINE PO PRN (09:20)
[2019-12-19] MEDS: DiphenhydrAMINE HCL 50 MG/ML VIAL IV SCH (09:20)
--- NOTE | 2019-12-19 15:47 | Hospitalist Progress Note ---
Date of Service December 19, 2019 Assessment & Plan (1) Subcapital fracture of right hip: * CT of RIGHT hip with subcapital fracture, suspected on previous xray * Ortho consult -- appreciate input * patient and family wish for conservative care because of h/o difficult intubation, difficulties with anesthesia as well as multiple allergies to metals. looking into [facility] care at [place] for 3-4 weeks * Will need serial xrays to determine healing, can be arranged by orthopedics --> repeat xray 12/15 without further displacement -- will continue with bedrest for next 3-4 weeks with plan for weekly imaging once at SNF. Per discussion with ortho, may possibly be able to do bed to chair transfers at three weeks, which would allow for patient to participate in some level of therapy. If patient to remain hospitalized through the weekend, would repeat imaging prior to discharge and then weekly thereafter. * Of note, if head of femur displaced further in the future would need specialty ceramic head replacement at tertiary facility * CM following, as previous facility unable to accept with IV Ertapenem -- [facility] pending bed availability (2) Fall: * Purely mechanical * PT/OT: really she cannot participate due to complete bedrest * Will need SNF for 3-4 weeks of bedrest with likely need for acute inpatient rehab following healing of fx (3) UTI (urinary tract infection): * Recent Ecoli UTI * Finished 7 day course of ertapenem on 12/02 -- hx of multiple abx allergies * Follows with Dr. Xavier * Symptoms of dysuria on 12/11, checked UA that showed > 30 WBC, urine culture sent -- previously discussed with Dr. Xavier and decision to use Ertapenem for 14 days. Patient had been refusing, as she believes she was having reaction * ID consult placed -- appreciate input -- as patient continues to be asymptomatic since she has been refusing abx, no indication for additional treatment at this time -- this will make placement easier, as the IV ertapenem and pretreatment had limited options (4) Hypothyroidism: * Chronic. * TSH low at 0.272, FT4 elevated at 1.81 * Decreased morning dose to 88mcg -- will need outpatient follow up, repeat TFT in 4-6 weeks. Patient states her dose was adjusted to 100mcg back in July. Could consider alternating or doing 100mcg six days a week (5) Labile hypertension: * Hx Labile HTN. Chronic. Stable- 123/77 * Continue home clonidine, Verapamil (6) Asthma: * Continue home budesonide, levalbuterol Q6 prn * Patient with post nasal drip * continue Advair-refuses at times * lungs clear, no distress (7) Vitamin D deficiency: * Continue home vit D 5,000 IU daily (8) Vitamin B12 deficiency: * Hx B12 deficiency. B12 at 289, low normal. * Continue B12 drops (9) Dyslipidemia: * Hx of. Unable to tolerate statins (10) Osteoporosis: * Possible osteoporosis with current pathological fracture. * Continue Vit D supplementation (11) Vaginal prolapse: * long standing issue * has tried numerous pessaries in the past * has allergic reactions to all of them * external vulva very irritated, painful * asked patient about hormone replacement therapy, she refuses to even consider topical agents (12) Rash: * IMPROVED * Left breast. Antifungal barrier cream. Topical salve daughter to bring in this afternoon. Also with erythema of buttocks, back, posterior elbow region. Could consider topical steroid cream if salve without improvement. * Will consult wound RN to see about options to best prevent breakdown given patient to remain on bedrest for ~3 + weeks * Discussed with wound RN -- possibly could benefit from different bed, but would not want to compromise hip -- if we could assure she doesn't sink in too deeply we could pursue this --- given complicated case, will continue to monitor for skin breakdown for now but keep that in mind if worsens. Would not want to compromise healing hip as it has been stable since the bed may adjust as patient moves around. (13) DVT prophylaxis: * SCDs * could consider Xarelto on discharge, however, patient very leery of trying any new medications (41 allergies listed). Discussion again today regarding Xarelto vs Eliquis vs even aspirin, and patient states that she had tried aspirin, and even HALF and aspirin at the instruction of Dr. Blanton, and she had severe epistaxis. So, patient refusing at this time. Dispo: hopeful for discharge this week to SNF, but will need accepted. Possibility for discharge home with home health vs hired caregivers , but after discussion with family they are not willing to pursue this option. CM continuing efforts for bed. Ref sent to [facility] today as well. Of note: If issues occur whenever Ms. Mayer is discharged, to whichever facility has a bed, daughter and patient would like the following people on the contact information for nursing/providers to call: -- Any ENT issues -- contact Dr. Valiente -- Any cardiology issues -- contact Dr. Blanton -- Any infectious disease/uti issues -- contact Dr. Xavier -- Any neurology issues -- contact Dr. Gonzales Supervising Physician Co-Signing Physician Notes PA Supervision Note: I did not personally see or examine the patient today, but I verified all jansen points of REJI Holly's assessment and plan with the following exceptions/additions: None Subjective Discussed in detail situation, +MRSA nasal swab, and continued search for bed placement. Anticipate earliest tomorrow if we hear back today, but could possibly not be until sunday. Concerns regarding issues that may come up once discharged and they would like specific instructions to be passed along regarding issues with ENT, cardiology, infectious disease, and neurology. They would like this information passed along to SNF so that they know the appropriate providers to contact in the event an issue would present itself. They would also like to consider [facility] if [facility] do not have beds. Both daughters present at bedside. All questions/concerns addressed. Review of Systems Review of Systems: All systems reviewed & are unremarkable except as noted in HPI & below Constitutional: no fever and no chills Eyes: no diplopia and no problem reported Ear, Nose, Mouth, Throat: no sore throat and no dysphagia Respiratory: no cough and no dyspnea Cardiovascular: no chest pain, no palpitations and no edema Gastrointestinal: no abdominal pain, no nausea and no vomiting Physical Exam Physical Exam: Constitutional WD/WN, vitals as above no acute distress Eyes + anicteric sclerae and PERRL Neck trachea midline, no thyromegaly Respiratory normal respiratory effort, lungs clear to auscultation Cardiovascular RRR, no murmur, no edema Gastrointestinal (Abdomen) normal bowel sounds, soft, nontender, no hepatosplenomegaly Musculoskeletal Head/Neck/Chest: normocephalic and head atraumatic Extremities: strength 5/5 throughout Skin decreased erythema to posterior aspect bilateral elbows improved decreased erythema of bilateral buttock and upper back improved, no longer dry Neurologic PERRL, EOMI, accommodation nl, no face palsy, no dysarthria Psychiatric A+Ox3, euthymic affect. Anxious affect Results & Data ([facility]) Vital Signs (Past 12 Hours) Vital Signs Temp Pulse Pulse Resp BP Pulse Ox 12/19/19 08:23 36.6 C 65 18 106/68 96 12/19/19 05:49 90 124/63 PG Care Time/CCT Total # of Minutes Spent Total Time Spent with Patient: Total time spent is greater than 50% in coordination of care (as documented) at patient's floor/unit and/or counseling patient: Prolonged Care Time Prolonged Care Time: Yes Total Prolonged Care Time: 65 45 minutes spent at bedside with family and patient as well multiple discussions with case management to coordinate care and review chart Coding Level of Care Code 58768 Subseq Hosp Care Lvl 2 (25 - SIGNIFICANT, SEPARATELY IDENTIFIABLE ) Diagnoses Subcapital fracture of right hip S72.011A Encounter type: initial encounter Fracture type: closed Fall W19.XXXA Encounter type: initial encounter UTI (urinary tract infection) N39.0 Hypothyroidism E03.9 Labile hypertension R09.89 Asthma J45.909 Vitamin D deficiency E55.9 Vitamin B12 deficiency E53.8 Dyslipidemia E78.5 Osteoporosis M81.0 Vaginal prolapse N81.10 Rash R21 DVT prophylaxis Z29.9 Additional Codes Prolonged Care Time - Prolonged Care Time: Yes ([id number]) (1) Subcapital fracture of right hip Encounter type: initial encounter Fracture type: closed Qualified Code(s): S72.011A - Unspecified intracapsular fracture of right femur, initial encounter for closed fracture (2) Fall Encounter type: initial encounter Qualified Code(s): W19.XXXA - Unspecified fall, initial encounter
[2019-12-19] MEDS: FLUTICASONE/SALMETEROL 100/50 (ADVAIR) 14 PUFF/1 INHALER INH SCH (21:58)
[2019-12-19] MEDS: GUAIFENESIN PO SCH (22:06)
[2019-12-20] MEDS: VERAPAMIL 80 MG PO SCH ×3 (06:15→21:31)
[2019-12-20] MEDS: CLONIDINE HCL 0.1 MG PO SCH ×3 (06:15→21:33)
[2019-12-20] MEDS: LEVOTHYROXINE SODIUM 88 MCG TABLET PO SCH (06:16)
[2019-12-20] MEDS: ERGOTAMINE PO PRN (06:45)
[2019-12-20] MEDS: CAFFEINE PO PRN (06:45)
[2019-12-20] MEDS: VITAMIN D3: NON-FORMULARY PATIENT'S OWN MED PO SCH (09:27)
[2019-12-20] MEDS: BUDESONIDE AQ (RHINOCORT AQ) NASAL SPRAY 32 MCG SCH ×2 (09:29→21:27)
--- NOTE | 2019-12-20 11:44 | Hospitalist Progress Note ---
Date of Service December 20, 2019 Assessment & Plan (1) Subcapital fracture of right hip: * CT of RIGHT hip with subcapital fracture, suspected on previous xray * Ortho consult -- appreciate input * patient and family wish for conservative care because of h/o difficult intubation, difficulties with anesthesia as well as multiple allergies to metals. looking into [facility] care at [place] for 3-4 weeks * Will need serial x-rays to determine healing, can be arranged by orthopedics --> repeat xray 12/15 without further displacement -- will continue with bedrest for next 3-4 weeks with plan for weekly imaging once at SNF. Per discussion with ortho, may possibly be able to do bed to chair transfers at three weeks, which would allow for patient to participate in some level of therapy. If patient to remain hospitalized through the weekend, would repeat imaging prior to discharge and then weekly thereafter. * Of note, if head of femur displaced further in the future would need specialty ceramic head replacement at tertiary facility (2) Fall: * Purely mechanical * PT/OT: really she cannot participate due to complete bedrest * Will need SNF for 3-4 weeks of bedrest total with likely need for acute inpatient rehab following healing of fx (3) UTI (urinary tract infection): * Recent Ecoli UTI. Finished 7 day course of ertapenem on 12/02 -- hx of multiple abx allergies. Follows with Dr. Xavier. * Symptoms of dysuria on 12/11, checked UA that showed > 30 WBC, urine culture sent -- previously discussed with Dr. Xavier and decision to use Ertapenem for 14 days. Patient had been refusing, as she believed she was having reaction. * ID consult placed -- appreciate input -- as patient continues to be asymptomatic since she has been refusing abx, no indication for additional treatment at this time -- this will make placement easier, as the IV ertapenem and pretreatment had limited options. (4) Hypothyroidism: * Chronic. * TSH low at 0.272, FT4 elevated at 1.81 * Decreased morning dose to 88mcg -- will need outpatient follow up, repeat TFT in 4-6 weeks. Patient states her dose was adjusted to 100mcg back in July. Could consider alternating or doing 100mcg six days a week (5) Labile hypertension: * Hx Labile HTN. Chronic. Stable- 123/77 * Continue home clonidine, Verapamil (6) Asthma: * Continue home budesonide, levalbuterol Q6 prn. Patient with post nasal drip. * Continue Advair as tolerated by patient- she refuses at times * Lungs clear, no distress (7) Vitamin D deficiency: * Continue home vit D 5,000 IU daily (8) Vitamin B12 deficiency: * Hx B12 deficiency. B12 at 289, low normal. * Continue B12 drops (9) Dyslipidemia: * Hx of. Unable to tolerate statins (10) Osteoporosis: * Possible osteoporosis with current pathological fracture. * Continue Vit D supplementation (11) Vaginal prolapse: * long standing issue, has tried numerous pessaries in the past and has had allergic reactions to all of them * asked patient about hormone replacement therapy, she refuses to even consider topical agents (12) Rash: * IMPROVED -- almost completely resolved * Continue using Aveeno topical. Own sheets/linens. Continue liquid Zyrtec. * Discussed with wound RN -- possibly could benefit from different bed, but would not want to compromise hip -- if we could assure she doesn't sink in too deeply we could pursue this --- given complicated case, will continue to monitor for skin breakdown for now but keep that in mind if worsens. Would not want to compromise healing hip as it has been stable since the bed may adjust as patient moves around. (13) DVT prophylaxis: * SCDs * could consider Xarelto on discharge, however, patient very leery of trying any new medications (41 allergies listed). Discussion again today regarding Xarelto vs Eliquis vs even aspirin, and patient states that she had tried aspirin, and even HALF and aspirin at the instruction of Dr. Blanton, and she had severe epistaxis. So, patient refusing at this time. Dispo: hopeful for discharge this week to SNF, but will need accepted. Possibility for discharge home with home health vs hired caregivers , but after discussion with family they are not willing to pursue this option. CM continuing efforts for bed. Ref sent to [facility] today as well. Of note: If issues occur whenever Ms. Mayer is discharged, to whichever facility has a bed, daughter and patient would like the following people on the contact information for nursing/providers to call: -- Any ENT issues -- contact Dr. Valiente -- Any cardiology issues -- contact Dr. Blanton -- Any infectious disease/UTI issues -- contact Dr. Xavier -- Any neurology issues -- contact Dr. Gonzaels Supervising Physician Co-Signing Physician Notes PA Supervision Note: I did not personally see or examine the patient today, but I verified all jansen points of REJI Holly's assessment and plan with the following exceptions/additions: None Subjective Patient evaluated at bedside this morning. Daughter on phone on . Discussed no bed availability yet but reviewed plan for sunday and instructions to call various specific providers regarding specific concerns once discharge. Daughter and patient very pleased with conversation. Patient states she is going well. Pain tolerable with tylenol. Skin much better. No further itchiness. Only concern is some mild pain in her butt, which she believes is from trying to push herself up in bed. No further pain reported. Mild headache that resolved with her home medication this morning. No fevers, chills, chest pain, shortness of breath, abdominal pain, n/v/d, dysuria. Review of Systems Review of Systems: All systems reviewed & are unremarkable except as noted in HPI & below Physical Exam Physical Exam: Constitutional WD/WN, vitals as above no acute distress Eyes + anicteric sclerae and PERRL Respiratory normal respiratory effort, lungs clear to auscultation Cardiovascular RRR, no murmur, no edema Gastrointestinal (Abdomen) normal bowel sounds, soft, nontender, no hepatosplenomegaly Musculoskeletal Head/Neck/Chest: normocephalic and head atraumatic Extremities: strength 5/5 throughout Skin decreased erythema to posterior aspect bilateral elbows improved erythema to bilateral buttocks, R>L upper back with significant improvement elbows smooth, minimal erythema Neurologic PERRL, EOMI, accommodation nl, no face palsy, no dysarthria Psychiatric A+Ox3, euthymic affect. Results & Data ([facility]) Vital Signs (Past 12 Hours) Vital Signs Temp Pulse Resp BP Pulse Ox 12/20/19 07:49 36.7 C 59 L 18 121/83 94 PG Care Time/CCT Total # of Minutes Spent Total Time Spent with Patient: Total time spent is greater than 50% in coordination of care (as documented) at patient's floor/unit and/or counseling patient: Coding Level of Care Code 28684 Subseq Hosp Care Lvl 2 Diagnoses Subcapital fracture of right hip S72.011A Encounter type: initial encounter Fracture type: closed Fall W19.XXXA Encounter type: initial encounter UTI (urinary tract infection) N39.0 Hypothyroidism E03.9 Labile hypertension R09.89 Asthma J45.909 Vitamin D deficiency E55.9 Vitamin B12 deficiency E53.8 Dyslipidemia E78.5 Osteoporosis M81.0 Vaginal prolapse N81.10 Rash R21 DVT prophylaxis Z29.9 (1) Subcapital fracture of right hip Encounter type: initial encounter Fracture type: closed Qualified Code(s): S72.011A - Unspecified intracapsular fracture of right femur, initial encounter for closed fracture (2) Fall Encounter type: initial encounter Qualified Code(s): W19.XXXA - Unspecified fall, initial encounter
[2019-12-20] MEDS: FLUTICASONE/SALMETEROL 100/50 (ADVAIR) 14 PUFF/1 INHALER INH SCH (21:27)
[2019-12-20] MEDS: CETIRIZINE PO PRN (21:28)
[2019-12-20] MEDS: GUAIFENESIN PO SCH (21:33)
[2019-12-21] MEDS: VERAPAMIL 80 MG PO SCH ×3 (05:35→21:33)
[2019-12-21] MEDS: LEVOTHYROXINE SODIUM 88 MCG TABLET PO SCH (05:35)
[2019-12-21] MEDS: CLONIDINE HCL 0.1 MG PO SCH ×3 (05:35→21:32)
[2019-12-21 06:34] LABS: BUN Creatinine Ratio 12.4 (10-20); Calcium 9.6 mg/dl (8.5-10.1); Creatinine Clr Calc Pharmacy 57.7 ml/min; Est GFR (African American) 91.2; Est GFR (Non-African American) 78.7
[2019-12-21] MEDS: BUDESONIDE AQ (RHINOCORT AQ) NASAL SPRAY 32 MCG SCH ×2 (08:30→21:31)
[2019-12-21] MEDS: VITAMIN D3: NON-FORMULARY PATIENT'S OWN MED PO SCH (08:33)
[2019-12-21] MEDS: CAFFEINE PO PRN (12:51)
[2019-12-21] MEDS: ERGOTAMINE PO PRN (12:51)
--- NOTE | 2019-12-21 16:13 | Hospitalist Progress Note ---
Date of Service December 21, 2019 Assessment & Plan (1) Subcapital fracture of right hip: * CT of RIGHT hip with subcapital fracture, suspected on previous xray * Ortho consult -- appreciate input * patient and family wish for conservative care because of h/o difficult intubation, difficulties with anesthesia as well as multiple allergies to metals. looking into [facility] for 3-4 weeks * Will need serial x-rays to determine healing, can be arranged by orthopedics --> repeat xray 12/15 without further displacement -- will continue with bedrest for next 3-4 weeks with plan for weekly imaging once at SNF. Per discussion with ortho, may possibly be able to do bed to chair transfers at three weeks, which would allow for patient to participate in some level of therapy. If patient to remain hospitalized through the weekend, would repeat imaging prior to discharge and then weekly thereafter. * Will repeat imaging tomorrow so that if patient with bed availability will have imaging prior to d/c * Of note, if head of femur displaced further in the future would need specialty ceramic head replacement at tertiary facility (2) Fall: * Purely mechanical * PT/OT: really she cannot participate due to complete bedrest * Will need SNF for 3-4 weeks of bedrest total with likely need for acute inpatient rehab following healing of fx (3) UTI (urinary tract infection): * Recent Ecoli UTI. Finished 7 day course of ertapenem on 12/02 -- hx of multiple abx allergies. Follows with Dr. Xavier. * Symptoms of dysuria on 12/11, checked UA that showed > 30 WBC, urine culture sent -- previously discussed with Dr. Xavier and decision to use Ertapenem for 14 days. Patient had been refusing, as she believed she was having reaction. * ID consult placed -- appreciate input -- as patient continues to be asymptomatic since she has been refusing abx, no indication for additional treatment at this time -- this will make placement easier, as the IV ertapenem and pretreatment had limited options. (4) Hypothyroidism: * Chronic. * TSH low at 0.272, FT4 elevated at 1.81 * Decreased morning dose to 88mcg -- will need outpatient follow up, repeat TFT in 4-6 weeks. Patient states her dose was adjusted to 100mcg back in July. Could consider alternating or doing 100mcg six days a week (5) Labile hypertension: * Hx Labile HTN. Chronic. Stable- 150/83 * Continue home clonidine, Verapamil (6) Asthma: * Continue home budesonide, levalbuterol Q6 prn. Patient with post nasal drip. * Continue Advair as tolerated by patient- she refuses at times * Lungs clear, no distress (7) Vitamin D deficiency: * Continue home vit D 5,000 IU daily (8) Vitamin B12 deficiency: * Hx B12 deficiency. B12 at 289, low normal. * Continue B12 drops (9) Dyslipidemia: * Hx of. Unable to tolerate statins (10) Osteoporosis: * Possible osteoporosis with current pathological fracture. * Continue Vit D supplementation (11) Vaginal prolapse: * long standing issue, has tried numerous pessaries in the past and has had allergic reactions to all of them * asked patient about hormone replacement therapy, she refuses to even consider topical agents (12) Rash: * IMPROVED -- almost completely resolved * Continue using Aveeno topical. Own sheets/linens. Continue liquid Zyrtec. * Discussed with wound RN -- possibly could benefit from different bed, but would not want to compromise hip -- if we could assure she doesn't sink in too deeply we could pursue this --- given complicated case, will continue to monitor for skin breakdown for now but keep that in mind if worsens. Would not want to compromise healing hip as it has been stable since the bed may adjust as patient moves around. (13) DVT prophylaxis: * SCDs * could consider Xarelto on discharge, however, patient very leery of trying any new medications (41 allergies listed). Discussion again today regarding Xarelto vs Eliquis vs even aspirin, and patient states that she had tried asp irin, and even HALF and aspirin at the instruction of Dr. Blanton, and she had severe epistaxis. So, patient refusing at this time. Dispo: hopeful for discharge sunday or sunday to SNF pending bed availability Of note: If issues occur whenever Ms. Mayer is discharged, to whichever facility has a bed, daughter and patient would like the following people on the contact information for nursing/providers to call: -- Any ENT issues -- contact Dr. Valiente -- Any cardiology issues -- contact Dr. Blanton -- Any infectious disease/UTI issues -- contact Dr. Xavier -- Any neurology issues -- contact Dr. Gonzales Supervising Physician Co-Signing Physician Notes PA Supervision Note: I did not personally see or examine the patient today, but I verified all jansen points of REJI Holly's assessment and plan with the following exceptions/additions: None Subjective Patient evaluated at bedside this morning. States she had a headache this morning but she took half of her cafergot and it has resolved. Decreased pain to her buttocks. Denies any further itchiness or redness, states her linens from home and dwight pad have made major improvements. States she only had to use the aveeno twice and hasn't used it in over a day. Denies any other concerns at this time. All questions/concerns addressed. Plan to repeat imaging tomorrow. Review of Systems Review of Systems: All systems reviewed & are unremarkable except as noted in HPI & below Constitutional: no fever and no chills Ear, Nose, Mouth, Throat: no sore throat and no dysphagia Respiratory: no cough and no dyspnea Cardiovascular: no chest pain, no palpitations and no edema Gastrointestinal: no abdominal pain, no nausea, no vomiting and no constipation Genitourinary: no dysuria and no urinary frequency Integumentary: no rash and no lesions Neurologic: + headache(s) (resovled) Physical Exam Physical Exam: Constitutional WD/WN, vitals as above no acute distress Eyes + anicteric sclerae and PERRL Respiratory normal respiratory effort, lungs clear to auscultation Cardiovascular RRR, no murmur, no edema Gastrointestinal (Abdomen) normal bowel sounds, soft, nontender, no hepatosplenomegaly Musculoskeletal Head/Neck/Chest: normocephalic and head atraumatic Extremities: strength 5/5 throughout Minimal tenderness of R hip to palpation Skin erythema to bilateral buttocks, R>L. Small skin tear to left buttock upper back with significant improvement. smooth. elbows smooth, minimal erythema Neurologic PERRL, EOMI, accommodation nl, no face palsy, no dysarthria Psychiatric A+Ox3, euthymic affect. Results & Data ([facility]) Vital Signs (Past 12 Hours) Vital Signs Temp Pulse Pulse Resp BP Pulse Ox 12/21/19 16:01 36.7 C 65 16 150/83 H 96 12/21/19 13:43 138/78 12/21/19 07:00 36.5 C 60 16 111/59 L 93 Laboratory Results 12/21/19 Range/Units 05:21 Sodium 138 (136-145) mmol/L Potassium 4.0 (3.5-5.1) mmol/L Chloride 104 (98-107) mmol/L Carbon Dioxide 28 (21-32) mmol/L Anion Gap 6.0 (3-11) BUN 9 (7-18) mg/dl Creatinine 0.74 (0.6-1.2) mg/dl Est Cr Clr Drug Dosing 57.7 ml/min Est GFR ( Amer) 91.2 Est GFR (Non-Af Amer) 78.7 BUN/Creatinine Ratio 12.4 (10-20) Glucose 122 H (70-99) mg/dl Calcium 9.6 (8.5-10.1) mg/dl PG Care Time/CCT Total # of Minutes Spent Total Time Spent with Patient: Total time spent is greater than 50% in coordination of care (as documented) at patient's floor/unit and/or counseling patient: Coding Level of Care Code 76273 Subseq Hosp Care Lvl 2 Diagnoses Subcapital fracture of right hip S72.011A Encounter type: initial encounter Fracture type: closed Fall W19.XXXA Encounter type: initial encounter UTI (urinary tract infection) N39.0 Hypothyroidism E03.9 Labile hypertension R09.89 Asthma J45.909 Vitamin D deficiency E55.9 Vitamin B12 deficiency E53.8 Dyslipidemia E78.5 Osteoporosis M81.0 Vaginal prolapse N81.10 Rash R21 DVT prophylaxis Z29.9 (1) Subcapital fracture of right hip Encounter type: initial encounter Fracture type: closed Qualified Code(s): S72.011A - Unspecified intracapsular fracture of right femur, initial encounter for closed fracture (2) Fall Encounter type: initial encounter Qualified Code(s): W19.XXXA - Unspecified fall, initial encounter
[2019-12-21] MEDS: FLUTICASONE/SALMETEROL 100/50 (ADVAIR) 14 PUFF/1 INHALER INH SCH (21:31)
[2019-12-21] MEDS: GUAIFENESIN PO SCH (21:33)
[2019-12-21 23:32] LABS: Appearance Urine Turbid (Clear); Bacteria Urine Automated 2+ (Negative); Bilirubin Urine Negative (Negative); Blood Urine 1+ (Negative); Color Urine Dark Yellow; Epithelial Cell Urine Auto >30 /lpf (0-5); Glucose Urine UA Negative (Negative); Ketones Urine Trace (Negative); Leukocyte Esterase Urine 2+ (Negative); Nitrite Urine Positive (Negative); Protein Urine Trace (Negative); Specific Gravity Urine 1.028 (1.000-1.030); Urobilinogen Urine Negative (Negative); WBC Urine Automated >30 /hpf (0-5); pH Urine 5.5 (4.5-7.5)
[2019-12-21 23:54] LABS: RBC Urine Automated 0-4 /hpf (0-4)
[2019-12-21] MEDS: FLAVOXATE HCL 100 MG PO PRN (23:57)
[2019-12-22] MEDS: CETIRIZINE PO PRN (05:13)
[2019-12-22] MEDS: CLONIDINE HCL 0.1 MG PO SCH ×3 (05:14→21:45)
[2019-12-22] MEDS: VERAPAMIL 80 MG PO SCH ×3 (05:15→21:43)
[2019-12-22] MEDS: LEVOTHYROXINE SODIUM 88 MCG TABLET PO SCH (06:24)
--- NOTE | 2019-12-22 07:47 | XRay Report ---
XR hip RT 2V w pelvis CLINICAL HISTORY: 74 years-old Female presenting with Right Hip Fracture -- assess healing. TECHNIQUE: Single frontal view of the pelvis and frontal and crosstable lateral views of the right hi p were obtained. COMPARISON: 12/15/2019. FINDINGS: Redemonstration of the subcapital fracture of the right femoral neck. This appears mildly impacted, s table to slightly slightly increased from prior. No other change in alignment. Bridging periosteal re action may be present along the medial cortex. Persistent fracture plane especially along the lateral aspect. Underlying mild osteopenia suspected. The pelvis is grossly intact. Left femoral neck intact . Degenerative changes of the spine evident. Hyperdensity within the right lower quadrant may represe nt intraluminal bowel contents. IMPRESSION: Slight interval healing suspected at the subcapital right femoral neck fracture, which may be slightl y impacted to a greater degree than on prior though the appearance could relate to healing. No other change in alignment. Persistent fracture plane especially laterally. ACT 112: Negative or not required by law. Electronically signed by: Brian Londono M.D. 12/22/2019 7:45 AM
[2019-12-22] MEDS: VITAMIN D3: NON-FORMULARY PATIENT'S OWN MED PO SCH (08:56)
[2019-12-22] MEDS: BUDESONIDE AQ (RHINOCORT AQ) NASAL SPRAY 32 MCG SCH ×2 (08:57→21:44)
[2019-12-22] MEDS: FLUTICASONE/SALMETEROL 100/50 (ADVAIR) 14 PUFF/1 INHALER INH SCH (21:44)
[2019-12-22] MEDS: GUAIFENESIN PO SCH (21:45)
[2019-12-22] MEDS: FLAVOXATE HCL 100 MG PO PRN (23:54)
[2019-12-23] MEDS: LEVOTHYROXINE SODIUM 88 MCG TABLET PO SCH (05:13)
[2019-12-23] MEDS: CLONIDINE HCL 0.1 MG PO SCH ×3 (05:13→22:03)
[2019-12-23] MEDS: VERAPAMIL 80 MG PO SCH ×3 (05:14→22:04)
[2019-12-23] MEDS: CETIRIZINE PO PRN (05:51)
[2019-12-23] MEDS: VITAMIN D3: NON-FORMULARY PATIENT'S OWN MED PO SCH (08:41)
[2019-12-23] MEDS: BUDESONIDE AQ (RHINOCORT AQ) NASAL SPRAY 32 MCG SCH ×2 (08:42→22:02)
--- NOTE | 2019-12-23 14:25 | Hospitalist Progress Note ---
Date of Service December 23, 2019 Assessment & Plan (1) Subcapital fracture of right hip: * CT of RIGHT hip with subcapital fracture, suspected on previous xray * Ortho consult -- appreciate input - they have signed off at this time but are following for imaging review. Discussed with Shelton Zaragoza as imaging have different lateral views and recommend repeat CT * CT 12/23 - no change in alignment of slightly angulated and impacted subcapital fx of R hip; minimal sclerosis at the fracture edges suggestive of early healing -- Can review with Shelton/Dr. Neal for their personal review * Patient and family wish for conservative care because of h/o difficult intubation, difficulties with anesthesia as well as multiple allergies to metals. looking into [facility] care at [facility] for 3-4 weeks * Will need serial x-rays to determine healing, can be arranged by orthopedics --> repeat xray 12/15 without further displacement -- will continue with bedrest for next 3-4 weeks with plan for weekly imaging once at SNF. Per discussion with ortho, may possibly be able to do bed to chair transfers at three weeks, which would allow for patient to participate in some level of therapy. If patient to remain hospitalized through the weekend, would repeat imaging prior to discharge and then weekly thereafter. * Will repeat imaging tomorrow so that if patient with bed availability will have imaging prior to d/c * Of note, if head of femur displaced further in the future would need specialty ceramic head replacement at tertiary facility (2) Fall: * Purely mechanical * PT/OT: really she cannot participate due to complete bedrest * Will need SNF for 3-4 weeks of bedrest total with likely need for acute inpatient rehab following healing of fx (3) UTI (urinary tract infection): * Recent Ecoli UTI. Finished 7 day course of ertapenem on 12/02 -- hx of multiple abx allergies. Follows with Dr. Xavier. * Symptoms of dysuria on 12/11, checked UA that showed > 30 WBC, urine culture sent -- previously discussed with Dr. Xavier and decision to use Ertapenem for 14 days. Patient had been refusing, as she believed she was having reaction. * ID consult placed -- appreciate input -- as patient continues to be asymptomatic since she has been refusing abx, no indication for additional treatment at this time -- this will make placement easier, as the IV ertapenem and pretreatment had limited options. * On 12/23 she does note that she is having more bladder spasm - urine culture from 12/21 does continue to show e. coli - will need to discuss with Dr. Xavier and need for treatment and options given extensive allergies. * Continue Flavoxate PRN as she states this helps (4) Hypothyroidism: * Chronic. * TSH low at 0.272, FT4 elevated at 1.81 * Decreased morning dose to 88mcg -- will need outpatient follow up, repeat TFT in 4-6 weeks. Patient states her dose was adjusted to 100mcg back in [place]. Could consider alternating or doing 100mcg six days a week (5) Labile hypertension: * Hx Labile HTN. Chronic - seems to be improving and some may have been pain/stress response * Continue home clonidine, Verapamil (6) Asthma: * STABLE * Continue home budesonide, levalbuterol Q6 prn. Patient with post nasal drip. * Continue Advair as tolerated by patient- she refuses at times (7) Vitamin D deficiency: * Continue home vit D 5,000 IU daily (8) Vitamin B12 deficiency: * Hx B12 deficiency. B12 at 289, low normal. * Continue B12 drops (9) Dyslipidemia: * Hx of. Unable to tolerate statins (10) Osteoporosis: * Possible osteoporosis with current pathological fracture. * Continue Vit D supplementation (11) Vaginal prolapse: * long standing issue, has tried numerous pessaries in the past and has had allergic reactions to all of them * asked patient about hormone replacement therapy, she refuses to even consider topical agents (12) Rash: * IMPROVED -- almost completely resolved * Continue using Aveeno topical. Own sheets/linens. Continue Cetirizine and will schedule this as she reports she forgets to ask and it helps her allergies/reactions alot * Previously discussed with wound RN -- possibly could benefit from different bed, but would not want to compromise hip -- if we could assure she doesn't sink in too deeply we could pursue this --- given complicated case, will continue to monitor for skin breakdown for now but keep that in mind if w michaela. Would not want to compromise healing hip as it has been stable since the bed may adjust as patient moves around. (13) DVT prophylaxis: * SCDs * could consider Xarelto on discharge, however, patient very leery of trying any new medications (41 allergies listed). Patient states that she had tried aspirin, and even HALF an aspirin at the instruction of Dr. Blanton, and she had severe epistaxis. So, patient refusing at this time. Dispo: Awaiting SNF bed. Medically able to be discharged pending this arrangement Of note: If issues occur whenever Ms. Mayer is discharged, to whichever facility has a bed, daughter and patient would like the following people on the contact information for nursing/providers to call: -- Any ENT issues -- contact Dr. Valiente -- Any cardiology issues -- contact Dr. Blanton -- Any infectious disease/UTI issues -- contact Dr. Xavier -- Any neurology issues -- contact Dr. Gonzales Subjective She reports that overall she is doing well. Discussed with orthopedics and the patient about obtaining a CT scan to better analyze her hip fracture. She does agree. She states with using her own linens she is having less irritation. She also is getting relief with Ceterizine but forget to ask for it. Can schedule this for now. She also is having increasing bladder spasms and is worried about further evolving UTI. Abx options are extremely limited. Will need discussed with ID. UA does show e. coli and sensitivities pending. Review of Systems Constitutional: no fever and no chills Respiratory: no cough and no dyspnea Cardiovascular: no chest pain and no lightheadedness Gastrointestinal: no abdominal pain, no nausea, no vomiting, no constipation and no diarrhea/loose stools Genitourinary: no dysuria bladder spasm Musculoskeletal: + joint pain (R hip) Physical Exam Constitutional: WD/WN, vitals as above no acute distress Eyes: + anicteric sclerae ENMT: Ears: no hearing impairment Neck: trachea midline Respiratory: normal respiratory effort, lungs clear to auscultation Cardiovascular: RRR, no murmur, no edema Gastrointestinal (Abdomen): Inspection/Auscultation: normal bowel sounds Percussion/Palpation: abdomen soft; abdomen nontender Psychiatric: A+Ox3, euthymic affect Results & Data ([facility]) Vital Signs (Past 12 Hours) Vital Signs Temp Pulse Pulse Resp BP BP Pulse Ox 12/23/19 13:54 173/78 H 12/23/19 07:52 36.5 C 61 16 125/79 97 12/23/19 05:16 62 142/72 H PG Care Time/CCT Total # of Minutes Spent Total Time Spent with Patient: Total time spent is greater than 50% in coordination of care (as documented) at patient's floor/unit and/or counseling patient: Coding Level of Care Code 46797 Subseq Hosp Care Lvl 2 Diagnoses Subcapital fracture of right hip S72.011A Encounter type: initial encounter Fracture type: closed Fall W19.XXXA Encounter type: initial encounter UTI (urinary tract infection) N39.0 Hypothyroidism E03.9 Labile hypertension R09.89 Asthma J45.909 Vitamin D deficiency E55.9 Vitamin B12 deficiency E53.8 Dyslipidemia E78.5 Osteoporosis M81.0 Vaginal prolapse N81.10 Rash R21 DVT prophylaxis Z29.9 (1) Subcapital fracture of right hip Encounter type: initial encounter Fracture type: closed Qualified Code(s): S72.011A - Unspecified intracapsular fracture of right femur, initial encounter for closed fracture (2) Fall Encounter type: initial encounter Qualified Code(s): W19.XXXA - Unspecified fall, initial encounter
[2019-12-23] MEDS: ACETAMINOPHEN 325 MG TAB PO PRN ×2 (15:41→22:13)
[2019-12-23] MEDS: FLAVOXATE HCL 100 MG PO PRN (17:01)
--- NOTE | 2019-12-23 17:07 | CT Scan Report ---
RIGHT HIP CT CT DOSE: 308.88 mGy.cm HISTORY: Reassess R Hip Fx TECHNIQUE: Multiaxial CT images of the right hip were performed and reformatted in the sagittal and c oronal plane without the use of contrast. A dose lowering technique was utilized adhering to the carmen nciples of TONE. COMPARISON: Right hip CT 12/05/2019. FINDINGS: Redemonstration of the impacted and slightly angulated subcapital right femoral neck fractu re. There is slight sclerosis of the fracture images consistent with minimal healing compared to the prior study. No dislocation. The visualized pelvic bones are intact. IMPRESSION: 1. No change in alignment of the slightly angulated and impacted subcapital fracture of the right hip .. 2. Minimal sclerosis at the fracture edges suggestive of early healing. ACT 112: Negative or not required by law. Electronically signed by: Seun Bedolla M.D. 12/23/2019 5:06 PM
[2019-12-23] MEDS: FLUTICASONE/SALMETEROL 100/50 (ADVAIR) 14 PUFF/1 INHALER INH SCH (21:58)
[2019-12-23] MEDS: NON-FORMULARY PATIENT'S OWN MED PO SCH (22:01)
[2019-12-23] MEDS: GUAIFENESIN PO SCH (22:05)
[2019-12-24] MEDS: VERAPAMIL 80 MG PO SCH ×3 (05:46→21:55)
[2019-12-24] MEDS: LEVOTHYROXINE SODIUM 88 MCG TABLET PO SCH (05:46)
[2019-12-24] MEDS: CLONIDINE HCL 0.1 MG PO SCH ×3 (05:47→21:54)
[2019-12-24] MEDS: FLAVOXATE HCL 100 MG PO PRN ×2 (05:56→13:24)
[2019-12-24] MEDS: BUDESONIDE AQ (RHINOCORT AQ) NASAL SPRAY 32 MCG SCH ×2 (07:57→21:54)
[2019-12-24] MEDS: VITAMIN D3: NON-FORMULARY PATIENT'S OWN MED PO SCH (07:59)
[2019-12-24] MEDS: NON-FORMULARY PATIENT'S OWN MED PO SCH ×2 (08:01→21:56)
--- NOTE | 2019-12-24 12:45 | Hospitalist Progress Note ---
Date of Service December 24, 2019 Assessment & Plan (1) Subcapital fracture of right hip: * CT of RIGHT hip with subcapital fracture, suspected on previous xray * Ortho consult, appreciate input --> they signed off but continue to follow for imaging review. * CT 12/23: no change in alignment of slightly angulated and impacted subcapital fx of R hip; minimal sclerosis at the fracture edges suggestive of early healing. * Patient and family wish for conservative care because of h/o difficult intu bation, difficulties with anesthesia as well as multiple allergies to metals. Plan for discharge to [facility] pending placement. * Recommend serial XRs to determine healing -- will order imaging on 12/25 prior to discharge. * Continue bedrest for 3-4 weeks, weekly imaging at SNF (to be arranged by ortho). May be able to start bed to chair transfers at 3 weeks. * Of note, if head of femur displaced further in the future would need specialty ceramic head replacement at tertiary facility (2) Fall: * Purely mechanical * PT/OT: she cannot participate due to complete bedrest * Will need SNF for 3-4 weeks of bedrest total with likely need for acute inpatient rehab following healing of fx. (3) UTI (urinary tract infection): * Recent Ecoli UTI, completed 7 day course of Ertapenem on 12/02 -- hx of multiple abx allergies, follows with ID. * C/o dysuria on 12/11, U/a showed >30 WBC and UC with E. coli. Pt. refused f urther abx, felt that she was having a reaction. * Most recent UC 2/2 +E. coli; pt. c/o increased dysuria -- will start Gentamicin 5 mg/kg x [address] Xavier. * Continue Flavoxate prn as she states this helps. (4) Hypothyroidism: * TSH low at 0.272, FT4 elevated at 1.81 * Decreased morning dose to 88mcg -- recommend repeat TFTs in 4-6 weeks. Patient states her dose was adjusted to 100 mcg back in July. Could consider alternating or doing 100mcg six days a week. (5) Labile hypertension: * Likely related to stress response, inpatient hospitalization. * Continue home Clonidine, Verapamil as prescribed. (6) Asthma: * Continue home Budesonide & Advair; Levalbuterol q6hr prn. (7) Vitamin D deficiency: * Continue home vit D 5,000 IU daily (8) Vitamin B12 deficiency: * Hx B12 deficiency. B12 at 289, low normal. * Continue B12 drops (9) Dyslipidemia: * Hx of. Is statin intolerant. (10) Osteoporosis: * Possible osteoporosis with current pathological fracture. * Continue Vit D supplementation as noted above. (11) Vaginal prolapse: * Long standing issue, has tried numerous pessaries in the past and has had allergic reactions to all of them. * Asked patient about hormone replacement therapy, she refuses to even consider topical agents. (12) Rash: * Improving overall. * Continue using Aveeno topical. Own sheets/linens. * Previously discussed with wound RN -- possibly could benefit from different bed, but would not want to compromise hip -- if we could assure she doesn't sink in too deeply we could pursue this --- given complicated case, will continue to monitor for skin breakdown for now but keep that in mind if worsens. Would not want to compromise healing hip as it has been stable since the bed may adjust as patient moves around. (13) DVT prophylaxis: * SCDs * Consider Xarelto on discharge, however, patient very leery of trying any new medications (41 allergies listed). Patient states that she had tried aspirin, and even HALF an aspirin at the instruction of Dr. Blanton, and she had severe epistaxis. Patient refusing at this time. Dispo: Discharge to SNF ([facility]) pending placement. Of note: If issues occur whenever Ms. Mayer is discharged, to whichever facility has a bed, daughter and patient would like the following people on the contact information for nursing/providers to call: -- Any ENT issues -- contact Dr. Valiente -- Any cardiology issues -- contact Dr. Blanton -- Any infectious disease/UTI issues -- contact Dr. Xavier -- Any neurology issues -- contact Dr. Gonzales Subjective Pt. c/o suprapubic pain and dysuria -- she describes pain as "razors" during urination. Symptoms have been increasing over the last 24-[address] Xavier, will start Gentamicin IV x 2 days with pre-medications. Review of Systems Review of Systems: All systems reviewed & are unremarkable except as noted in HPI & below Constitutional: + fatigue and + weakness; no fever, no chills and no anorexia Respiratory: no cough, no dyspnea and no dyspnea on exertion Cardiovascular: no chest pain, no palpitations and no edema Gastrointestinal: no abdominal pain, no nausea, no vomiting and no constipation Genitourinary: + dysuria and + urinary frequency; no decreased urination Musculoskeletal: no back pain and no joint pain Integumentary: no non-healing lesions Physical Exam Physical Exam: General: Resting comfortably HEENT: NC/AT; PERRLA with EOMI; [place] conjunctiva, MMM. No erythema of posterior pharynx Neck: Supple and nontender Cardiac: RRR Lungs: CTA bilaterally Abdomen: Bowel normoactive X 4; Nontender to palpation Extremities: Warm. No edema present Neuro: No focal weakness Skin: No rash Results & Data ([facility]) Vital Signs (Past 12 Hours) Vital Signs Temp Pulse Resp BP Pulse Ox 12/24/19 05:50 36.5 C 69 18 162/76 H 96 PG Care Time/CCT Total # of Minutes Spent Total Time Spent with Patient: Total time spent is greater than 50% in coordination of care (as documented) at patient's floor/unit and/or counseling patient: Coding Level of Care Code 57848 Subseq Hosp Care Lvl 3 Diagnoses Subcapital fracture of right hip S72.011A Encounter type: initial encounter Fracture type: closed Fall W19.XXXA Encounter type: initial encounter UTI (urinary tract infection) N39.0 Hypothyroidism E03.9 Labile hypertension R09.89 Asthma J45.909 Vitamin D deficiency E55.9 Vitamin B12 deficiency E53.8 Dyslipidemia E78.5 Osteoporosis M81.0 Vaginal prolapse N81.10 Rash R21 DVT prophylaxis Z29.9 (1) Subcapital fracture of right hip Encounter type: initial encounter Fracture type: closed Qualified Code(s): S72.011A - Unspecified intracapsular fracture of right femur, initial encounter for closed fracture (2) Fall Encounter type: initial encounter Qualified Code(s): W19.XXXA - Unspecified fall, initial encounter
[2019-12-24] MEDS ORDERED: GENTAMICIN CONSULT ACTIVE PRN (13:53)
--- NOTE | 2019-12-24 13:58 | Infectious Disease Progress Nt ---
Date of Service December 24, 2019 Assessment & Plan (1) UTI (urinary tract infection): If patient would like treatment for current culture result (unclear if pathogen or contaminant due to high ep cells) would suggest IM gent x 2 doses, today and tomorrow prior to d/c. discussed with primary service. Subjective spoke with primary service, repeat UA > 30 wbc, and ep cells, bacteira noted, culture grew pansensitive E. coli. patient now reporting dysuria, interested in treatment. she is to be d/c to snf tomorrow for ongoing care of fractured hip. She has multiple abx intolerances and due to insurance benefits can not have ongoing abx at [facility]. afebrile. no recent cbc, but wbc has been normal. afebrile Results & Data Vital Signs (Past 12 Hours) Vital Signs Temp Pulse Resp BP Pulse Ox 12/24/19 05:50 36.5 C 69 18 162/76 H 96 Laboratory Results Microbiology 12/21/19 22:35 Urine,Clean Catch Urine Culture - Final Escherichia coli 12/11/19 08:25 Urine,Clean Catch Urine Culture - Final Escherichia coli PG Care Time/CCT Total # of Minutes Spent Total Time Spent with Patient: Total time spent is greater than 50% in coordination of care (as documented) at patient's floor/unit and/or counseling patient: Coding Level of Care Code 28644 Subseq Hosp Care Lvl 1 Diagnoses UTI (urinary tract infection) N39.0
[2019-12-24] MEDS ORDERED: ACETAMINOPHEN 1,000 MG/100 ML VIAL IV STA (14:09)
[2019-12-24] MEDS ORDERED: DiphenhydrAMINE HCL 50 MG/ML VIAL IV STA (14:09)
--- NOTE | 2019-12-24 14:34 | Pharmacy Report ---
Pharmacy Abx Initial Consult - Date of Service December 24, 2019 - Pharmacy Dosing Scope Date of Consult: 12/24 Consultation requested by: Nae Paredes Pharmacy is consulted to initiate gentamicin dosing therapy, order appropriate labs and adjust drug dose/frequency. - Subjective The patient is a 74 year old F admitted on 12/05/19 14:25. - Objective Height: 5 ft 1 in Weight: 69.5 kg Vital Signs (Past 12hrs): Vital Signs Temp Pulse Resp BP Pulse Ox 12/24/19 05:50 36.5 C 69 18 162/76 H 96 Micro Results: 12/21/19 22:35 Urine Culture - Final Urine,Clean Catch Escherichia coli 12/11/19 08:25 Urine Culture - Final Urine,Clean Catch Escherichia coli - Assessment & Plan Assessment 74 year old F [] Plan Pharmacy consulted for gentamicin. Patient with E coli UTI and multiple allergies limiting her antibiotic choice. Gentamicin * Patient is a candidate for extended interval dosing - will utilize the [facility] Nomogram for assessing dosing interval * Will order gentamicin 280 mg today (~5 mg/kg adj BW used since actual weight is >/=1.2x IBW) * Will plan to order a random gentamicin level ~10 hours after medication is given to asses appropriate interval for dosing Pharmacy will continue to follow and will adjust dose/frequency as necessary. Thank you.
[2019-12-24 15:42] LABS: Creatinine Clr Calc Pharmacy 61.8 ml/min; Est GFR (Non-African American) 84.6
[2019-12-24] MEDS: GENTAMICIN SULFATE 280 MG in DEXTROSE 5% 100 ML IV SCH (16:36)
[2019-12-24] MEDS ORDERED: Nursing to Pharmacy Communication ONE (19:01)
[2019-12-24] MEDS: FLUTICASONE/SALMETEROL 100/50 (ADVAIR) 14 PUFF/1 INHALER INH SCH (21:53)
[2019-12-24] MEDS: GUAIFENESIN PO SCH (21:55)
[2019-12-25] MEDS ORDERED: OXYCODONE/ACETAMINOPHEN 5mg/325mg TAB PO STA (00:04)
[2019-12-25 01:35] LABS: Hematocrit (blood only) 38.3 % (37-47); Hemoglobin 13.5 g/dL (12.0-16.0); Mean Corpuscular Hemoglobin 30.6 pg (25-34); Mean Corpuscular Hgb Conc 35.2 g/dL (32-36); Mean Corpuscular Volume 86.8 fL (80-100); Mean Platelet Volume 10.4 fL (7.4-10.4); Platelet Count 398 K/uL (130-400); RDW Coefficient of Variation 12.7 % (11.5-14.5); RDW Standard Deviation 40.5 fL (36.4-46.3); Red Blood Count 4.41 M/uL (4.2-5.4); White Blood Count 6.69 K/uL (4.8-10.8)
[2019-12-25 02:01] LABS: Albumin Level 3.2 gm/dl (3.4-5.0); BUN Creatinine Ratio 13.9 (10-20); Calcium 9.1 mg/dl (8.5-10.1); Creatinine Clr Calc Pharmacy 53.3 ml/min; Est GFR (Non-African American) 71.6; Potassium 3.9 mmol/L (3.5-5.1)
[2019-12-25 02:04] LABS: Albumin Globulin Ratio 0.8 (0.9-2); Bilirubin,Total 0.4 mg/dl (0.2-1); Globulin 4.1 gm/dl (2.5-4.0); Total Protein 7.3 gm/dl (6.4-8.2)
[2019-12-25] MEDS: LEVOTHYROXINE SODIUM 88 MCG TABLET PO SCH (06:03)
[2019-12-25] MEDS: CLONIDINE HCL 0.1 MG PO SCH ×3 (06:03→21:43)
[2019-12-25] MEDS: VERAPAMIL 80 MG PO SCH ×3 (06:04→21:42)
--- NOTE | 2019-12-25 07:44 | XRay Report ---
XR hip RT 2V w pelvis CLINICAL HISTORY: Hip fracture COMPARISON: Right hip radiographs December 22, [address] of the right hip December 23, 2019. FINDINGS: There has been no significant change in alignment of the impacted subcapital fracture of t he right hip since radiographs of December 22, [address] of December 23, 2019. No additional fracture s are identified on this examination. Sacroiliac joints and symphysis pubis are intact. IMPRESSION: No change in alignment of the impacted subcapital fracture of the right hip. ACT 112: Negative or not required by law. Electronically signed by: Bryant Singh M.D. 12/25/2019 7:42 AM
--- NOTE | 2019-12-25 08:52 | Pharmacy Report ---
Pharmacy Abx Dose Short Note - Date of Service December 25, 2019 - Assessment & Plan Laboratory Tests 12/25/19 01:04 Random Gentamicin 4.70 Assessment 74 year old F receiving IV Gentamicin x 2 doses for treatment of EColi UTI per ID recommendations; multiple allergies limiting her antibiotic choice. Plan Gentamicin * Random Gentamicin level of 4.7mcg/ml 8.5 hours after dose started indicates 24 hour dosing for extended interval dosing - utilizing the [facility] Nomogram. * Continue Gentamicin 280 mg x one more dose today (~5 mg/kg adj BW used since actual weight is >/=1.2x IBW) to complete therapy Pharmacy will continue to follow and will adjust dose/frequency as necessary. Thank you.
[2019-12-25] MEDS: BUDESONIDE AQ (RHINOCORT AQ) NASAL SPRAY 32 MCG SCH ×3 (08:57→21:40)
[2019-12-25] MEDS: VITAMIN D3: NON-FORMULARY PATIENT'S OWN MED PO SCH (08:57)
[2019-12-25] MEDS: NON-FORMULARY PATIENT'S OWN MED PO SCH ×2 (08:59→21:45)
[2019-12-25] MEDS ORDERED: DiphenhydrAMINE HCL 50 MG/ML VIAL IV SCH ×2 (11:45→14:45)
[2019-12-25] MEDS ORDERED: ACETAMINOPHEN 1,000 MG/100 ML VIAL IV SCH ×2 (11:45→14:45)
--- NOTE | 2019-12-25 12:38 | Hospitalist Progress Note ---
Date of Service December 25, 2019 Assessment & Plan (1) Subcapital fracture of right hip: * CT of RIGHT hip with subcapital fracture, suspected on previous xray * Ortho consult, appreciate input --> they signed off but continue to follow for imaging review. Recommend re-eval by ortho on day of discharge. * CT /: no change in alignment of slightly angulated and impacted subcapital fx of R hip; minimal sclerosis at the fracture edges suggestive of early healing. * Most recent XR this morning showed no change in alignment of impacted subcapital fracture of the right hip. * Patient and family wish for conservative care because of h/o difficult intubation, difficulties with anesthesia as well as multiple allergies to metals. Plan for discharge to [place] pending placement. * Recommend serial XRs to determine healing -- recommend f/u imaging in 1 week (to be arranged by ortho). * Continue bedrest for 3-4 weeks. May be able to start bed to chair transfers at 3 weeks (on Sunday12/29/19) * Of note, if head of femur displaced further in the future would need specialty ceramic head replacement at tertiary facility (2) Fall: * Purely mechanical * PT/OT: she cannot participate due to complete bedrest * Will need SNF to complete 3-4 weeks of bedrest total with likely need for acute inpatient rehab following healing of fx. (3) UTI (urinary tract infection): * Recent E. coli UTI, completed 7 day course of Ertapenem on 12/02 -- hx of multiple abx allergies, follows with ID. * C/o dysuria on 12/11, U/a showed >30 WBC and UC with E. coli. Pt. refused further abx, felt that she was having a reaction. * Most recent UC 2/2 +E. coli; pt. developed increased dysuria -- Gentamicin 5 mg/kg x [address] Xavier. Consider additional dose on 12/26 if indicated. Pre-medicated with Tylenol 1 gm IV and Bendryl 25 mg IV. * Continue Flavoxate prn - aids in symptom relief. (4) Hypothyroidism: * TSH low at 0.272, FT4 elevated at 1.81 * Decreased dose to 88mcg -- recommend repeat TFTs in 4-6 weeks. Patient states her dose was adjusted to 100 mcg back in July. Could consider alternating or doing 100mcg six days a week. (5) Labile hypertension: * Likely related to stress response, inpatient hospitalization. * Continue home Clonidine, Verapamil as prescribed. (6) Asthma: * Continue home Budesonide & Advair; Levalbuterol q6hr prn. (7) Vitamin D deficiency: * Continue home vit D 5,000 IU daily (8) Vitamin B12 deficiency: * Hx B12 deficiency. B12 at 289, low normal. * Continue B12 drops (9) Dyslipidemia: * H/o; is statin intolerant. (10) Osteoporosis: * Possible osteoporosis with current pathological fracture. * Continue Vit D supplementation as noted above. (11) Vaginal prolapse: * Long standing issue, has tried numerous pessaries in the past and has had allergic reactions to all of them. * Asked patient about hormone replacement therapy, she refuses to even consider topical agents. (12) Rash: * Improving overall. * Continue using Aveeno topical. Own sheets/linens. * Previously discussed with wound RN -- possibly could benefit from different bed, but would not want to compromise hip -- if we could assure she doesn't sink in too deeply we could pursue this --- given complicated case, will david nue to monitor for skin breakdown for now but keep that in mind if worsens. Would not want to compromise healing hip as it has been stable since the bed may adjust as patient moves around. (13) DVT prophylaxis: * SCDs * Consider Xarelto on discharge, however, patient very leery of trying any new medications (41 allergies listed). Patient states that she had tried aspirin, and even HALF an aspirin at the instruction of Dr. Blanton, and she had severe epistaxis. Patient refusing at this time. Dispo: Discharge to SNF ([place]) pending placement, likely tomorrow. Of note: If issues occur whenever Ms. Mayer is discharged, to whichever facility has a bed, daughter and patient would like the following people on the contact information for nursing/providers to call: -- Any ENT issues -- contact Dr. Valiente -- Any cardiology issues -- contact Dr. Blanton -- Any infectious disease/UTI issues -- contact Dr. Xavier -- Any neurology issues -- contact Dr. Gonzales Subjective Pt. reports urinary symptoms are improved after receiving one dose of Gentamicin -- has mild dysuria at end of urinary stream and mild urinary frequency. She had increased right hip pain overnight -- likely related to rolling over in bed leading to re-positioning. Also c/o skin tear on lower back that occurred overnight, continue to apply barrier cream frequently and monitor area. Her daughter was present at bedside today; the family would like 2 doses of abx at this point. Plan for possible discharge to [place] tomorrow if a bed is available. Review of Systems Review of Systems: All systems reviewed & are unremarkable except as noted in HPI & below Constitutional: + fatigue and + weakness; no fever, no chills and no anorexia Respiratory: no cough, no dyspnea and no dyspnea on exertion Cardiovascular: no chest pain, no palpitations and no edema Gastrointestinal: no abdominal pain, no nausea and no constipation Genitourinary: + dysuria and + urinary frequency; no difficulty urinating Musculoskeletal: + joint pain (Right hip pain); no back pain Integumentary: + sores (Lower back ) Physical Exam Physical Exam: General: Resting comfortably HEENT: NC/AT; PERRLA with EOMI; [place] conjunctiva, MMM. No erythema of posterior pharynx Neck: Supple and nontender Cardiac: RRR Lungs: CTA bilaterally Abdomen: Bowel normoactive X 4; Nontender to palpation Extremities: Warm. No edema present. Nontender to palpation over right hip. Neuro: No focal weakness Skin: No rash Results & Data ([facility]) Vital Signs (Past 12 Hours) Vital Signs Temp Pulse Resp BP Pulse Ox 12/25/19 11:02 36.5 C 54 L 20 115/62 98 12/25/19 08:04 36.5 C 64 20 108/53 L 97 Laboratory Results 12/25/19 12/25/19 12/25/19 Range/Units 01:04 01:04 01:04 WBC 6.69 (4.8-10.8) K/uL RBC 4.41 (4.2-5.4) M/uL Hgb 13.5 (12.0-16.0) g/dL Hct 38.3 (37-47) % MCV 86.8 (80-100) fL MCH 30.6 (25-34) pg MCHC 35.2 (32-36) g/dL RDW Std Deviation 40.5 (36.4-46.3) fL RDW Coeff of Ashley 12.7 (11.5-14.5) % Plt Count 398 (130-400) K/uL MPV 10.4 (7.4-10.4) fL Sodium 138 (136-145) mmol/L Potassium 3.9 (3.5-5.1) mmol/L Chloride 105 (98-107) mmol/L Carbon Dioxide 27 (21-32) mmol/L Anion Gap 5.0 (3-11) BUN 11 (7-18) mg/dl Creatinine 0.80 (0.6-1.2) mg/dl Est Cr Clr Drug Dosing 53.3 ml/min Est GFR ( Amer) 83.0 Est GFR (Non-Af Amer) 71.6 BUN/Creatinine Ratio 13.9 (10-20) Glucose 109 H (70-99) mg/dl Calcium 9.1 (8.5-10.1) mg/dl Total Bilirubin 0.4 (0.2-1) mg/dl AST 19 (15-37) U/L ALT 20 (12-78) U/L Alkaline Phosphatase 116 (45-117) U/L Total Protein 7.3 (6.4-8.2) gm/dl Albumin 3.2 L (3.4-5.0) gm/dl Globulin 4.1 H (2.5-4.0) gm/dl Albumin/Globulin Ratio 0.8 L (0.9-2) Random Gentamicin 4.70 mcg/ml 12/24/19 Range/Units 15:05 WBC (4.8-10.8) K/uL RBC (4.2-5.4) M/uL Hgb (12.0-16.0) g/dL Hct (37-47) % MCV (80-100) fL MCH (25-34) pg MCHC (32-36) g/dL RDW Std Deviation (36.4-46.3) fL RDW Coeff of Ashley (11.5-14.5) % Plt Count (130-400) K/uL MPV (7.4-10.4) fL Sodium (136-145) mmol/L Potassium (3.5-5.1) mmol/L Chloride (98-107) mmol/L Carbon Dioxide (21-32) mmol/L Anion Gap (3-11) BUN (7-18) mg/dl Creatinine 0.69 (0.6-1.2) mg/dl Est Cr Clr Drug Dosing 61.8 ml/min Est GFR ( Amer) 98.0 Est GFR (Non-Af Amer) 84.6 BUN/Creatinine Ratio (10-20) Glucose (70-99) mg/dl Calcium (8.5-10.1) mg/dl Total Bilirubin (0.2-1) mg/dl AST (15-37) U/L ALT (12-78) U/L Alkaline Phosphatase (45-117) U/L Total Protein (6.4-8.2) gm/dl Albumin (3.4-5.0) gm/dl Globulin (2.5-4.0) gm/dl Albumin/Globulin Ratio (0.9-2) Random Gentamicin mcg/ml PG Care Time/CCT Total # of Minutes Spent Total Time Spent with Patient: Total time spent is greater than 50% in coordination of care (as documented) at patient's floor/unit and/or counseling patient: Coding Level of Care Code 25025 Subseq Hosp Care Lvl 3 Diagnoses Subcapital fracture of right hip S72.011A Encounter type: initial encounter Fracture type: closed Fall W19.XXXA Encounter type: initial encounter UTI (urinary tract infection) N39.0 Hypothyroidism E03.9 Labile hypertension R09.89 Asthma J45.909 Vitamin D deficiency E55.9 Vitamin B12 deficiency E53.8 Dyslipidemia E78.5 Osteoporosis M81.0 Vaginal prolapse N81.10 Rash R21 DVT prophylaxis Z29.9 (1) Subcapital fracture of right hip Encounter type: initial encounter Fracture type: closed Qualified Code(s): S72.011A - Unspecified intracapsular fracture of right femur, initial encounter for closed fracture (2) Fall Encounter type: initial encounter Qualified Code(s): W19.XXXA - Unspecified fall, initial encounter
--- NOTE | 2019-12-25 14:04 | Communication Note ---
Date of Service: December 25, 2019 Updated x-rays reviewed by Dr. Neal. Stable appearance to right hip fracture. Continue with current plan. Repeat x-rays in 1 week.
[2019-12-25] MEDS ORDERED: ACETAMINOPHEN 1,000 MG/100 ML VIAL IV ONE ×3 (14:45→16:00)
[2019-12-25] MEDS ORDERED: DiphenhydrAMINE HCL 50 MG/ML VIAL IV ONE ×3 (14:45→16:00)
[2019-12-25] MEDS: GENTAMICIN SULFATE 280 MG in DEXTROSE 5% 100 ML IV SCH (16:18)
[2019-12-25] MEDS: FLUTICASONE/SALMETEROL 100/50 (ADVAIR) 14 PUFF/1 INHALER INH SCH (21:38)
[2019-12-25] MEDS: GUAIFENESIN PO SCH (21:46)
[2019-12-26] MEDS: FLAVOXATE HCL 100 MG PO PRN ×2 (02:03→18:19)
[2019-12-26] MEDS: VERAPAMIL 80 MG PO SCH ×3 (06:06→21:58)
[2019-12-26] MEDS: CLONIDINE HCL 0.1 MG PO SCH ×3 (06:07→21:59)
[2019-12-26] MEDS: LEVOTHYROXINE SODIUM 88 MCG TABLET PO SCH (06:07)
[2019-12-26] MEDS: NON-FORMULARY PATIENT'S OWN MED PO SCH ×2 (06:08→22:00)
[2019-12-26] MEDS: BUDESONIDE AQ (RHINOCORT AQ) NASAL SPRAY 32 MCG SCH ×2 (09:07→21:58)
[2019-12-26] MEDS: VITAMIN D3: NON-FORMULARY PATIENT'S OWN MED PO SCH (09:14)
[2019-12-26] MEDS ORDERED: ONDANSETRON 4 MG OD TAB PO PRN (09:17)
--- NOTE | 2019-12-26 11:28 | Hospitalist Progress Note ---
Date of Service December 26, 2019 Assessment & Plan (1) Subcapital fracture of right hip: * CT of RIGHT hip with subcapital fracture, suspected on previous xray * Ortho consult, appreciate input --> they signed off but continue to follow for imaging review. Pt. and family met with Shelton TERRAZAS from ortho this morning. * CT 12/23: no change in alignment of slightly angulated and impacted subcapital fx of R hip; minimal sclerosis at the fracture edges suggestive of early healing. * Most recent XR 12/25 showed no change in alignment of impacted subcapital fracture of the right hip. * Patient and family wish for conservative care because of h/o difficult intubation, difficulties with anesthesia as well as multiple allergies to metals. Plan for discharge to SNF pending bed availability. * Recommend serial XRs to determine healing -- recommend f/u imaging weekly (to be arranged by ortho with results reviewed by Dr. Howell) * Continue bedrest for 3-4 weeks. Will start transfer to chair when approved by ortho (possibly ~3 weeks post fracture, 12/29/19) * Of note, if head of femur displaced further in the future would need specialty ceramic head replacement at tertiary facility (2) Fall: * Purely mechanical * PT/OT: she cannot participate due to complete bedrest * Will need SNF to complete 3-4 weeks of bedrest total with likely need for acute inpatient rehab following healing of fx. (3) UTI (urinary tract infection): * Recent E. coli UTI, completed 7 day course of Ertapenem on 12/02 -- hx of multiple abx allergies, follows with ID. * C/o dysuria on 12/11, U/a showed >30 WBC and UC with E. coli. Pt. refused further abx, felt that she was having a reaction. * Most recent UC 2/ +E. coli; pt. developed increased dysuria on 12/24 -- received Gentamicin 5 mg/kg x [address] Xavier (on 12/24 and 12/25) * Continue Flavoxate prn - aids in symptom relief. (4) Hypothyroidism: * TSH low at 0.272, FT4 elevated at 1.81 * Decreased dose to 88mcg -- recommend repeat TFTs in 4-6 weeks. Patient states her dose was adjusted to 100 mcg back in July. Could consider alternating or doing 100mcg six days a week. (5) Labile hypertension: * Likely related to stress response, inpatient hospitalization. * Continue home Clonidine, Verapamil as prescribed. (6) Asthma: * Continue home Budesonide & Advair; Levalbuterol q6hr prn. (7) Vitamin D deficiency: * Continue home vit D 5,000 IU daily (8) Vitamin B12 deficiency: * Hx B12 deficiency. B12 at 289, low normal. * Continue B12 drops (9) Dyslipidemia: * H/o; is statin intolerant. (10) Osteoporosis: * Possible osteoporosis with current pathological fracture. * Continue Vit D supplementation as noted above. (11) Vaginal prolapse: * Long standing issue, has tried numerous pessaries in the past and has had allergic reactions to all of them. * Asked patient about hormone replacement therapy, she refuses to even consider topical agents. (12) Rash: * Improving overall. * Continue using Aveeno topical. Own sheets/linens. * Previously discussed with wound RN -- possibly could benefit from different bed, but would not want to compromise hip -- if we could assure she doesn't sink in too deeply we could pursue this --- given complicated case, will continue to monitor for skin breakdown for now but keep that in mind if worsens. Would not want to compromise healing hip as it has been stable since the bed may adjust as patient moves around. (13) DVT prophylaxis: * SCDs - pt. has requested SCDs following discharge to home. * Consider Xarelto on discharge, however, patient very leery of trying any new medications (41 allergies listed). Patient states that she had tried aspirin, and even HALF an aspirin at the instruction of Dr. Blanton, and she had severe epistaxis. Patient refusing at this time. Dispo: Discharge to SNF pending bed availablility. Of note: If issues occur whenever Ms. Mayer is discharged, to whichever facility has a bed, daughter and patient would like the following people on the contact information for nursing/providers to call: -- Any ENT issues -- contact Dr. Valiente -- Any cardiology issues -- contact Dr. Blanton -- Any infectious disease/UTI issues -- contact Dr. Xavier -- Any neurology issues -- contact Dr. Gonzales -- Any urology issues -- contact Dr. Zachary Isbell. Subjective Pt. is doing well overall. Does not have right hip pain at rest, does occur with movement. Has urinary frequency but dysuria is now completely resolved. Her daughter and were present at bedside; family updated regarding discharge planning by Mai and her electrical tests supervisor this morning. The family does not [facility] after visiting the facility. Mai will be contacting other facilities for different options. Family is also considering discharge to home with home health. Review of Systems Review of Systems: All systems reviewed & are unremarkable except as noted in HPI & below Constitutional: + fatigue and + weakness; no fever, no chills and no anorexia Respiratory: no cough, no dyspnea and no dyspnea on exertion Cardiovascular: no chest pain, no palpitations and no edema Gastrointestinal: no abdominal pain, no nausea, no vomiting and no constipation Genitourinary: + urinary frequency; no dysuria and no difficulty urinating Musculoskeletal: + joint pain; no back pain Integumentary: no non-healing lesions Physical Exam Physical Exam: General: Resting comfortably HEENT: NC/AT; PERRLA with EOMI; [place] conjunctiva, MMM. No erythema of posterior pharynx Neck: Supple and nontender Cardiac: RRR Lungs: CTA bilaterally Abdomen: Bowel normoactive X 4; Nontender to palpation Extremities: Warm. No edema present. Nontender to palpation right hip. Neuro: No focal weakness Skin: No rash Results & Data ([facility]) Vital Signs (Past 12 Hours) Vital Signs Temp Pulse Pulse Pulse Resp BP Pulse Ox 12/26/19 07:28 36.6 C 69 19 137/85 95 12/26/19 06:56 36.7 C 59 L 18 148/64 H 92 12/26/19 06:09 62 159/74 H 12/26/19 04:20 77 158/70 H PG Care Time/CCT Total # of Minutes Spent Total Time Spent with Patient: Total time spent is greater than 50% in coordination of care (as documented) at patient's floor/unit and/or counseling patient: Coding Level of Care Code 02066 Subseq Hosp Care Lvl 3 Diagnoses Subcapital fracture of right hip S72.011A Encounter type: initial encounter Fracture type: closed Fall W19.XXXA Encounter type: initial encounter UTI (urinary tract infection) N39.0 Hypothyroidism E03.9 Labile hypertension R09.89 Asthma J45.909 Vitamin D deficiency E55.9 Vitamin B12 deficiency E53.8 Dyslipidemia E78.5 Osteoporosis M81.0 Vaginal prolapse N81.10 Rash R21 DVT prophylaxis Z29.9 (1) Subcapital fracture of right hip Encounter type: initial encounter Fracture type: closed Qualified Code(s): S72.011A - Unspecified intracapsular fracture of right femur, initial encounter for closed fracture (2) Fall Encounter type: initial encounter Qualified Code(s): W19.XXXA - Unspecified fall, initial encounter
[2019-12-26] MEDS ORDERED: OXYCODONE/ACETAMINOPHEN 5mg/325mg TAB PO PRN (17:47)
[2019-12-26] MEDS: FLUTICASONE/SALMETEROL 100/50 (ADVAIR) 14 PUFF/1 INHALER INH SCH (21:57)
[2019-12-26] MEDS: GUAIFENESIN PO SCH (21:59)
[2019-12-27] MEDS: CLONIDINE HCL 0.1 MG PO SCH ×3 (05:14→21:51)
[2019-12-27] MEDS: VERAPAMIL 80 MG PO SCH ×3 (05:15→21:51)
[2019-12-27] MEDS: LEVOTHYROXINE SODIUM 88 MCG TABLET PO SCH (05:16)
[2019-12-27] MEDS: NON-FORMULARY PATIENT'S OWN MED PO SCH ×2 (09:46→21:49)
[2019-12-27] MEDS: VITAMIN D3: NON-FORMULARY PATIENT'S OWN MED PO SCH (09:46)
[2019-12-27] MEDS: BUDESONIDE AQ (RHINOCORT AQ) NASAL SPRAY 32 MCG SCH ×2 (09:47→21:48)
--- NOTE | 2019-12-27 13:10 | Hospitalist Progress Note ---
Date of Service December 27, 2019 Assessment & Plan (1) Subcapital fracture of right hip: * CT of RIGHT hip with subcapital fracture, suspected on previous xray * Ortho consult, appreciate input --> they signed off but continue to follow for imaging review. Pt. and family met with Shelton TERRAZAS from ortho on 12/26. * CT 12/23: no change in alignment of slightly angulated and impacted subcapital fx of R hip; minimal sclerosis at the fracture edges suggestive of early healing. * Most recent XR 12/25 showed no change in alignment of impacted subcapital fracture of the right hip. * Patient and family wish for conservative care because of h/o difficult intubation, difficulties with anesthesia as well as multiple allergies to metals. Plan for discharge to SNF pending bed availability. * Recommend serial XRs to determine healing -- recommend f/u imaging weekly (to be arranged by ortho with results reviewed by Dr. Howell) * Continue bedrest for 3-4 weeks. Start transfer to chair when approved by ortho (possibly ~3 weeks post fracture, 12/29/19) * Of note, if head of femur displaced further in the future would need specialty ceramic head replacement at tertiary facility (2) Fall: * Purely mechanical * PT/OT: she cannot participate due to complete bedrest * Will need SNF to complete 3-4 weeks of bedrest total with likely need for acute inpatient rehab following healing of fx. (3) UTI (urinary tract infection): * Recent E. coli UTI, completed 7 day course of Ertapenem on 12/02 -- hx of multiple abx allergies, follows with ID. * C/o dysuria on 12/11, U/a showed >30 WBC and UC with E. coli. Pt. refused further abx, felt that she was having a reaction. * Most recent UC / +E. coli; pt. developed increased dysuria on 12/24 -- received Gentamicin 5 mg/kg x [address] Xavier (on 12/24 and 12/25) * Continue Flavoxate prn - aids in symptom relief. (4) Hypothyroidism: * TSH low at 0.272, FT4 elevated at 1.81 * Decreased dose to 88mcg -- recommend repeat TFTs in 4-6 weeks. Patient states her dose was adjusted to 100 mcg back in July. Could consider alternating or doing 100mcg six days a week. (5) Labile hypertension: * Likely related to stress response, inpatient hospitalization. * Continue home Clonidine, Verapamil as prescribed. (6) Asthma: * Continue home Budesonide & Advair; Levalbuterol q6hr prn. (7) Vitamin D deficiency: * Continue home vit D 5,000 IU daily (8) Vitamin B12 deficiency: * Hx B12 deficiency. B12 at 289, low normal. * Continue B12 drops (9) Dyslipidemia: * H/o; is statin intolerant. (10) Osteoporosis: * Possible osteoporosis with current pathological fracture. * Continue Vit D supplementation as noted above. (11) Vaginal prolapse: * Long standing issue, has tried numerous pessaries in the past and has had allergic reactions to all of them. * Asked patient about hormone replacement therapy, she refuses to even consider topical agents. (12) Rash: * Resolved. * Continue using Aveeno topical. Own sheets/linens. * Previously discussed with wound RN -- possibly could benefit from different bed, but would not want to compromise hip -- if we could assure she doesn't sink in too deeply we could pursue this --- given complicated case, will continue to monitor for skin breakdown for now but keep that in mind if worsens. Would not want to compromise healing hip as it has been stable since the bed may adjust as patient moves around. (13) DVT prophylaxis: * SCDs - pt. has requested SCDs following discharge to home vs. SNF. * Consider Xarelto on discharge, however, patient very leery of trying any new medications (41 allergies listed). Patient states that she had tried aspirin (even HALF an aspirin at the instruction of Dr. Blanton led to severe epistaxis) Dispo: Discharge to SNF pending bed availability; meeting is currently scheduled at [facility] on Sunday morning. Of note: If issues occur whenever Ms. Mayer is discharged, to whichever facility has a bed, daughter and patient would like the following people on the contact information for nursing/providers to call: -- Any ENT issues -- contact Dr. Valiente -- Any cardiology issues -- contact Dr. Blanton -- Any infectious disease/UTI issues -- contact Dr. Xavier -- Any neurology issues -- contact Dr. Gonzales -- Any urology issues -- contact Dr. Zachary Isbell. Subjective Pt. is doing well overall. Does have urinary frequency but denies dysuria or pelvic pain. Has right hip pain with movement. Review of Systems Review of Systems: All systems reviewed & are unremarkable except as noted in HPI & below Constitutional: no fever, no chills, no fatigue and no weakness Respiratory: no cough, no dyspnea and no dyspnea on exertion Cardiovascular: no chest pain, no palpitations and no edema Gastrointestinal: no abdominal pain, no nausea, no vomiting and no constipation Genitourinary: + urinary frequency; no dysuria Musculoskeletal: no back pain and no joint pain Integumentary: no non-healing lesions Physical Exam Physical Exam: General: Resting comfortably HEENT: NC/AT; PERRLA with EOMI; [place] conjunctiva, MMM. No erythema of posterior pharynx Neck: Supple and nontender Cardiac: RRR Lungs: CTA bilaterally Abdomen: Bowel normoactive X 4; Nontender to palpation Extremities: Warm. No edema present Neuro: No focal weakness Skin: No rash Results & Data ([facility]) Vital Signs (Past 12 Hours) Vital Signs Temp Pulse Pulse Resp BP Pulse Ox 12/27/19 08:14 36.5 C 61 16 150/67 H 94 12/27/19 05:12 62 139/71 PG Care Time/CCT Total # of Minutes Spent Total Time Spent with Patient: Total time spent is greater than 50% in coordination of care (as documented) at patient's floor/unit and/or counseling patient: Coding Level of Care Code 57718 Subseq Hosp Care Lvl 2 Diagnoses Subcapital fracture of right hip S72.011A Encounter type: initial encounter Fracture type: closed Fall W19.XXXA Encounter type: initial encounter UTI (urinary tract infection) N39.0 Hypothyroidism E03.9 Labile hypertension R09.89 Asthma J45.909 Vitamin D deficiency E55.9 Vitamin B12 deficiency E53.8 Dyslipidemia E78.5 Osteoporosis M81.0 Vaginal prolapse N81.10 Rash R21 DVT prophylaxis Z29.9 (1) Subcapital fracture of right hip Encounter type: initial encounter Fracture type: closed Qualified Code(s): S72.011A - Unspecified intracapsular fracture of right femur, initial encounter for closed fracture (2) Fall Encounter type: initial encounter Qualified Code(s): W19.XXXA - Unspecified fall, initial encounter
[2019-12-27] MEDS: FLUTICASONE/SALMETEROL 100/50 (ADVAIR) 14 PUFF/1 INHALER INH SCH (21:48)
[2019-12-27] MEDS: GUAIFENESIN PO SCH (21:50)
[2019-12-28] MEDS: VERAPAMIL 80 MG PO SCH ×3 (05:06→21:37)
[2019-12-28] MEDS: LEVOTHYROXINE SODIUM 88 MCG TABLET PO SCH (05:06)
[2019-12-28] MEDS: CLONIDINE HCL 0.1 MG PO SCH ×3 (05:07→21:37)
[2019-12-28] MEDS: BUDESONIDE AQ (RHINOCORT AQ) NASAL SPRAY 32 MCG SCH ×2 (09:08→20:49)
[2019-12-28] MEDS: VITAMIN D3: NON-FORMULARY PATIENT'S OWN MED PO SCH (09:08)
[2019-12-28] MEDS: NON-FORMULARY PATIENT'S OWN MED PO SCH ×2 (09:09→20:49)
--- NOTE | 2019-12-28 12:59 | Hospitalist Progress Note ---
Date of Service December 28, 2019 Assessment & Plan (1) Subcapital fracture of right hip: * CT of RIGHT hip with subcapital fracture, suspected on previous xray * Ortho consult, appreciate input --> they signed off but continue to follow for imaging review. Pt. and family met with Shelton TERRAZAS from ortho on 12/26. * CT 12/23: no change in alignment of slightly angulated and impacted subcapital fx of R hip; minimal sclerosis at the fracture edges suggestive of early healing. * Most recent XR 12/25 showed no change in alignment of impacted subcapital fracture of the right hip. * Patient and family wish for conservative care because of h/o difficult intubation, difficulties with anesthesia as well as multiple allergies to metals. Discharge to SNF pending bed availability, possibly on 12/29. * Recommend serial XRs to determine healing -- recommend f/u imaging weekly (to be arranged by ortho with results reviewed by Dr. Howell) * Continue bedrest for 3-4 weeks. Start transfer to chair when approved by ortho (possibly ~3 weeks post fracture) * Of note, if head of femur displaced further in the future would need specialty ceramic head replacement at tertiary facility (2) Fall: * Purely mechanical * PT/OT: she cannot participate due to complete bedrest * Plan for SNF to complete 3-4 weeks of bedrest total with likely need for acute inpatient rehab following healing of fx. (3) UTI (urinary tract infection): * Recent E. coli UTI, completed 7 day course of Ertapenem on 12/02 -- hx of multiple abx allergies, follows with ID. * C/o dysuria on 12/11, U/a showed >30 WBC and UC with E. coli. Pt. refused further abx, felt that she was having a reaction. * Most recent UC 2/2 +E. coli; pt. developed increased dysuria -- received Gentamicin 5 mg/kg x [address] Xavier (on 12/24 and 12/25). Urinary symptoms are now resolved. * Continue Flavoxate prn. (4) Hypothyroidism: * TSH low at 0.272, FT4 elevated at 1.81 * Decreased dose to 88mcg -- recommend repeat TFTs in 1-2 weeks. Patient states her dose was adjusted to 100 mcg back in July. Could consider alternating or doing 100mcg six days a week. (5) Labile hypertension: * Likely related to stress response and hospitalization. * Continue Clonidine, Verapamil as prescribed. (6) Asthma: * Continue home Budesonide & Advair; Levalbuterol q6hr prn. (7) Vitamin D deficiency: * Continue home vit D 5,000 IU daily (8) Vitamin B12 deficiency: * Hx B12 deficiency. B12 at 289, low normal. * Continue B12 drops (9) Dyslipidemia: * H/o; is statin intolerant. (10) Osteoporosis: * Possible osteoporosis with current pathological fracture. * Continue Vit D supplementation as noted above. (11) Vaginal prolapse: * Long standing issue, has tried numerous pessaries in the past and has had allergic reactions to all of them. * Asked patient about hormone replacement therapy, she refuses to even consider topical agents. (12) Rash: * Resolved. * Continue using Aveeno topical. Own sheets/linens. * Previously discussed with wound RN -- possibly could benefit from different b ed, but would not want to compromise hip -- if we could assure she doesn't sink in too deeply we could pursue this --- given complicated case, will continue to monitor for skin breakdown for now but keep that in mind if worsens. Would not want to compromise healing hip as it has been stable since the bed may adjust as patient moves around. (13) DVT prophylaxis: * SCDs - pt. has requested SCDs following discharge to home vs. SNF. * Consider Xarelto on discharge, however, patient very leery of trying any new medications (41 allergies listed). Patient states that she had tried aspirin (even HALF an aspirin at the instruction of Dr. Blanton led to severe epistaxis) Dispo: Discharge to SNF pending bed availability; meeting is currently scheduled at [facility] on Sunday. Of note: If issues occur whenever Ms. Mayer is discharged, to whichever facility has a bed, daughter and patient would like the following people on the contact information for nursing/providers to call: -- Any ENT issues -- contact Dr. Valiente -- Any cardiology issues -- contact Dr. Blanton -- Any infectious disease/UTI issues -- contact Dr. Xavier -- Any neurology issues -- contact Dr. Gonzales -- Any urology issues -- contact Dr. Zachary Isbell. Subjective Pt. is doing well. Her sister is at bedside. She reports urinary symptoms are resolved. She is having regular BMs. Eating/drinking as tolerated. Review of Systems Review of Systems: All systems reviewed & are unremarkable except as noted in HPI & below Constitutional: no fever, no chills, no fatigue, no weakness and no anorexia Respiratory: no cough, no dyspnea and no dyspnea on exertion Cardiovascular: no chest pain, no palpitations and no edema Gastrointestinal: no abdominal pain, no nausea, no vomiting and no constipation Genitourinary: no difficulty urinating Musculoskeletal: no back pain and no joint pain Integumentary: no non-healing lesions Physical Exam Physical Exam: General: Resting comfortably HEENT: NC/AT; PERRLA with EOMI; [place] conjunctiva, MMM. No erythema of posterior pharynx Neck: Supple and nontender Cardiac: RRR Lungs: CTA bilaterally Abdomen: Bowel normoactive X 4; Nontender to palpation Extremities: Warm. No edema present Neuro: No focal weakness Skin: No rash Results & Data ([facility]) Vital Signs (Past 12 Hours) Vital Signs Temp Pulse Pulse Resp BP BP Pulse Ox 12/28/19 07:45 36.6 C 60 16 144/59 H 96 12/28/19 05:03 65 170/63 H PG Care Time/CCT Total # of Minutes Spent Total Time Spent with Patient: Total time spent is greater than 50% in coordination of care (as documented) at patient's floor/unit and/or counseling patient: Coding Level of Care Code 05060 Subseq Hosp Care Lvl 2 Diagnoses Subcapital fracture of right hip S72.011A Encounter type: initial encounter Fracture type: closed Fall W19.XXXA Encounter type: initial encounter UTI (urinary tract infection) N39.0 Hypothyroidism E03.9 Labile hypertension R09.89 Asthma J45.909 Vitamin D deficiency E55.9 Vitamin B12 deficiency E53.8 Dyslipidemia E78.5 Osteoporosis M81.0 Vaginal prolapse N81.10 Rash R21 DVT prophylaxis Z29.9 (1) Subcapital fracture of right hip Encounter type: initial encounter Fracture type: closed Qualified Code(s): S72.011A - Unspecified intracapsular fracture of right femur, initial encounter for closed fracture (2) Fall Encounter type: initial encounter Qualified Code(s): W19.XXXA - Unspecified fall, initial encounter
[2019-12-28] MEDS ORDERED: cloNIDine HCL 0.1 MG TAB PO ONE (16:05)
[2019-12-28] MEDS ORDERED: VERAPAMIL HCL 120 MG TABCR PO ONE (16:33)
[2019-12-28] MEDS ORDERED: VERAPAMIL HCL 40 MG TAB PO STA (16:51)
[2019-12-28] MEDS: ERGOTAMINE PO PRN (18:15)
[2019-12-28] MEDS: CAFFEINE PO PRN (18:15)
[2019-12-28] MEDS: FLUTICASONE/SALMETEROL 100/50 (ADVAIR) 14 PUFF/1 INHALER INH SCH (20:47)
[2019-12-28] MEDS: GUAIFENESIN PO SCH (21:38)
[2019-12-28] MEDS ORDERED: cloNIDine HCL 0.1 MG TAB PO SCH ×2 (22:00)
[2019-12-29] MEDS: VERAPAMIL 80 MG PO SCH ×3 (05:16→21:25)
[2019-12-29] MEDS: CLONIDINE HCL 0.1 MG PO SCH ×3 (05:16→21:24)
[2019-12-29] MEDS: LEVOTHYROXINE SODIUM 88 MCG TABLET PO SCH (05:17)
[2019-12-29 06:01] LABS: Hematocrit (blood only) 42.3 % (37-47); Hemoglobin 14.3 g/dL (12.0-16.0); Mean Corpuscular Hemoglobin 29.9 pg (25-34); Mean Corpuscular Hgb Conc 33.8 g/dL (32-36); Mean Corpuscular Volume 88.5 fL (80-100); Mean Platelet Volume 10.9 fL (7.4-10.4); Platelet Count 312 K/uL (130-400); RDW Coefficient of Variation 12.9 % (11.5-14.5); RDW Standard Deviation 41.4 fL (36.4-46.3); Red Blood Count 4.78 M/uL (4.2-5.4); White Blood Count 6.94 K/uL (4.8-10.8)
[2019-12-29 06:39] LABS: Albumin Level 3.1 gm/dl (3.4-5.0); BUN Creatinine Ratio 15.7 (10-20); Calcium 9.8 mg/dl (8.5-10.1); Creatinine Clr Calc Pharmacy 64.7 ml/min; Est GFR (African American) 99.5; Est GFR (Non-African American) 85.8; Magnesium 1.9 mg/dl (1.8-2.4); Potassium 3.9 mmol/L (3.5-5.1)
[2019-12-29 06:41] LABS: Albumin Globulin Ratio 0.7 (0.9-2); Bilirubin,Total 0.6 mg/dl (0.2-1); Globulin 4.3 gm/dl (2.5-4.0); Total Protein 7.4 gm/dl (6.4-8.2)
[2019-12-29] MEDS: BUDESONIDE AQ (RHINOCORT AQ) NASAL SPRAY 32 MCG SCH ×3 (08:13→20:44)
[2019-12-29] MEDS: VITAMIN D3: NON-FORMULARY PATIENT'S OWN MED PO SCH (08:14)
[2019-12-29] MEDS: NON-FORMULARY PATIENT'S OWN MED PO SCH ×2 (08:15→20:40)
--- NOTE | 2019-12-29 15:23 | Hospitalist Progress Note ---
Date of Service December 29, 2019 Assessment & Plan (1) Subcapital fracture of right hip: * CT of RIGHT hip with subcapital fracture, suspected on previous xray * Ortho consult, appreciate input --> they signed off but continue to follow for imaging review. Pt. and family met with Shelton TERRAZAS from ortho on 12/26. * CT 12/23: no change in alignment of slightly angulated and impacted subcapital fx of R hip; minimal sclerosis at the fracture edges suggestive of early healing. * Most recent XR 12/25 showed no change in alignment of impacted subcapital fracture of the right hip. * Patient and family wish for conservative care because of h/o difficult intubation, difficulties with anesthesia as well as multiple allergies to metals. Discharge to SNF likely on 12/30/19. * Recommend serial XRs to determine healing -- recommend f/u imaging weekly (to be arranged by ortho with results reviewed by Dr. Howell)-next xray due 01/01 * Continue bedrest for 3-4 weeks. Start transfer to chair when approved by ortho (possibly ~3 weeks post fracture) * Of note, if head of femur displaced further in the future would need specialty ceramic head replacement at tertiary facility (2) Fall: * Purely mechanical * PT/OT: she cannot participate due to complete bedrest * Plan for SNF on 12/30/19 to complete 3-4 weeks of bedrest total with likely need for acute inpatient rehab following healing of fx. (3) UTI (urinary tract infection): * Recent E. coli UTI, completed 7 day course of Ertapenem on 12/02 -- hx of multiple abx allergies, follows with ID. * C/o dysuria on 12/11, U/a showed >30 WBC and UC with E. coli. Pt. refused furt her abx, felt that she was having a reaction. * Most recent UC 2/2 +E. coli; pt. developed increased dysuria -- received Gentamicin 5 mg/kg x [address] Xavier (on 12/24 and 12/25). Urinary symptoms are now resolved. * Continue Flavoxate prn. (4) Hypothyroidism: * TSH low at 0.272, FT4 elevated at 1.81 * Decreased dose to 88mcg -- recommend repeat TFTs in 1-2 weeks. Patient states her dose was adjusted to 100 mcg back in July. Could consider alternating or doing 100mcg six days a week. (5) Labile hypertension: * Likely related to stress response and hospitalization. * Continue Clonidine, Verapamil as prescribed. * BP was acutely elevated on 12/28, SBP 200. Received additional dose of Verapamil and Clonidine, now improved. Pt. does not want to adjust BP meds, will continue to monitor. (6) Asthma: * Continue home Budesonide & Advair; Levalbuterol q6hr prn. (7) Vitamin D deficiency: * Continue home vit D 5,000 IU daily (8) Vitamin B12 deficiency: * Hx B12 deficiency. B12 at 289, low normal. * Continue B12 drops (9) Dyslipidemia: * H/o; is statin intolerant. (10) Osteoporosis: * Possible osteoporosis with current pathological fracture. * Continue Vit D supplementation as noted above. (11) Vaginal prolapse: * Long standing issue, has tried numerous pessaries in the past and has had allergic reactions to all of them. * Asked patient about hormone replacement therapy, she refuses to even consider topical agents. (12) Rash: * Resolved. * Continue using Aveeno topical. Own sheets/linens. * Previously discussed with wound RN -- possibly could benefit from different bed, but would not want to compromise hip -- if we could assure she doesn't sink in too deeply we could pursue this --- given complicated case, will continue to monitor for skin breakdown for now but keep that in mind if wo rsens. Would not want to compromise healing hip as it has been stable since the bed may adjust as patient moves around. (13) DVT prophylaxis: * SCDs - pt. has requested SCDs following discharge to SNF. * Consider Xarelto on discharge, however, patient very leery of trying any new medications (41 allergies listed). Patient states that she had tried aspirin (even HALF an aspirin at the instruction of Dr. Blanton led to severe epistaxis) Dispo: Discharge to SNF likely on 12/30/19. Of note: If issues occur whenever Ms. Mayer is discharged, to whichever facility has a bed, daughter and patient would like the following people on the contact information for nursing/providers to call: -- Any ENT issues -- contact Dr. Valiente -- Any cardiology issues -- contact Dr. Blanton -- Any infectious disease/UTI issues -- contact Dr. Xavier -- Any neurology issues -- contact Dr. Gonzales -- Any urology issues -- contact Dr. Zachary Isbell. -- Any orthopedic issues -- contact Dr. Howell. Admission and Anticipated Discharge Date Admission Date: December 05, 2019 Supervising Physician Co-Signing Physician Notes PA Supervision Note: I did not personally see or examine the patient today, but I verified all jansen points of REJI Soliman's assessment and plan with the following exceptions/additions: None Subjective Pt. is doing well. She had a good BM this morning, feels improved overall. BP was elevated last night, now improved. She attributes elevated BP to her constipation and states Dr. Blanton prefers that her BP remain >160 at baseline. Will hold adjusting BP meds. Her family met with Mecca Granda this morning, will d/c to SNF tomorrow. Review of Systems Review of Systems: All systems reviewed & are unremarkable except as noted in HPI & below Constitutional: no fever, no chills, no fatigue and no weakness Respiratory: no cough, no dyspnea and no dyspnea on exertion Cardiovascular: no chest pain, no palpitations and no edema Gastrointestinal: no abdominal pain, no nausea, no vomiting and no constipatio n Genitourinary: no difficulty urinating Musculoskeletal: no back pain and no joint pain Integumentary: no non-healing lesions Physical Exam Physical Exam: General: Resting comfortably HEENT: NC/AT; PERRLA with EOMI; [place] conjunctiva, MMM. No erythema of posterior pharynx Neck: Supple and nontender Cardiac: RRR Lungs: CTA bilaterally Abdomen: Bowel normoactive X 4; Nontender to palpation Extremities: Warm. No edema present Neuro: No focal weakness Skin: No rash Results & Data ([facility]) Vital Signs (Past 12 Hours) Vital Signs Temp Pulse Pulse Resp BP BP Pulse Ox 12/29/19 11:42 59 L 138/68 12/29/19 07:37 36.6 C 59 L 19 185/70 H 97 12/29/19 06:11 164/61 H 12/29/19 05:12 62 181/73 H Laboratory Results 12/29/19 12/29/19 Range/Units 05:30 05:30 WBC 6.94 (4.8-10.8) K/uL RBC 4.78 (4.2-5.4) M/uL Hgb 14.3 (12.0-16.0) g/dL Hct 42.3 (37-47) % MCV 88.5 (80-100) fL MCH 29.9 (25-34) pg MCHC 33.8 (32-36) g/dL RDW Std Deviation 41.4 (36.4-46.3) fL RDW Coeff of Ashley 12.9 (11.5-14.5) % Plt Count 312 (130-400) K/uL MPV 10.9 H (7.4-10.4) fL Sodium 137 (136-145) mmol/L Potassium 3.9 (3.5-5.1) mmol/L Chloride 104 (98-107) mmol/L Carbon Dioxide 27 (21-32) mmol/L Anion Gap 6.0 (3-11) BUN 10 (7-18) mg/dl Creatinine 0.66 (0.6-1.2) mg/dl Est Cr Clr Drug Dosing 64.7 ml/min Est GFR ( Amer) 99.5 Est GFR (Non-Af Amer) 85.8 BUN/Creatinine Ratio 15.7 (10-20) Glucose 116 H (70-99) mg/dl Calcium 9.8 (8.5-10.1) mg/dl Magnesium 1.9 (1.8-2.4) mg/dl Total Bilirubin 0.6 (0.2-1) mg/dl AST 16 (15-37) U/L ALT 16 (12-78) U/L Alkaline Phosphatase 107 (45-117) U/L Total Protein 7.4 (6.4-8.2) gm/dl Albumin 3.1 L (3.4-5.0) gm/dl Globulin 4.3 H (2.5-4.0) gm/dl Albumin/Globulin Ratio 0.7 L (0.9-2) PG Care Time/CCT Total # of Minutes Spent Total Time Spent with Patient: Total time spent is greater than 50% in coordination of care (as documented) at patient's floor/unit and/or counseling patient: Coding Level of Care Code 87033 Subseq Hosp Care Lvl 2 Diagnoses Subcapital fracture of right hip S72.011A Encounter type: initial encounter Fracture type: closed Fall W19.XXXA Encounter type: initial encounter UTI (urinary tract infection) N39.0 Hypothyroidism E03.9 Labile hypertension R09.89 Asthma J45.909 Vitamin D deficiency E55.9 Vitamin B12 deficiency E53.8 Dyslipidemia E78.5 Osteoporosis M81.0 Vaginal prolapse N81.10 Rash R21 DVT prophylaxis Z29.9 (1) Subcapital fracture of right hip Encounter type: initial encounter Fracture type: closed Qualified Code(s): S72.011A - Unspecified intracapsular fracture of right femur, initial encounter for closed fracture (2) Fall Encounter type: initial encounter Qualified Code(s): W19.XXXA - Unspecified fall, initial encounter
[2019-12-29] MEDS: FLUTICASONE/SALMETEROL 100/50 (ADVAIR) 14 PUFF/1 INHALER INH SCH ×2 (20:39→20:43)
[2019-12-29] MEDS: ACETAMINOPHEN 325 MG TAB PO PRN (21:24)
[2019-12-29] MEDS: GUAIFENESIN PO SCH (21:26)
[2019-12-30] MEDS ORDERED: ONDANSETRON 4 MG OD TAB PO SCH
[2019-12-30] MEDS ORDERED: LEVOTHYROXINE SODIUM 88 MCG TABLET PO SCH
[2019-12-30] MEDS ORDERED: FLAVOXATE HCL 100 MG PO SCH
[2019-12-30] MEDS: CLONIDINE HCL 0.1 MG PO SCH ×2 (05:48→13:54)
[2019-12-30] MEDS: VERAPAMIL 80 MG PO SCH ×2 (05:49→13:54)
[2019-12-30] MEDS: LEVOTHYROXINE SODIUM 88 MCG TABLET PO SCH (05:50)
[2019-12-30] MEDS: BUDESONIDE AQ (RHINOCORT AQ) NASAL SPRAY 32 MCG SCH (08:26)
[2019-12-30] MEDS: VITAMIN D3: NON-FORMULARY PATIENT'S OWN MED PO SCH (08:26)
[2019-12-30] MEDS: NON-FORMULARY PATIENT'S OWN MED PO SCH (09:15)
[2019-12-30] MEDS: FLAVOXATE HCL 100 MG PO PRN (11:36)
[2019-12-30] MEDS ORDERED: PERCOCET 5/325MG HOMEPACK PO ONE (15:00)
--- NOTE | 2019-12-30 16:31 | Discharge Summary ---
Date of Service December 30, 2019 Admission HPI Per Admitting Provider 74 y/o F c/o R hip pain. Pt was sitting at a table eating this AM when she moved to stand and slipped and fell. She states that she had no LOC or syncope or near syncope. Pt denies fever, SOB, chest pain, abd pain, n/v/c/d. She does have pain to the R hip into her back, but she is able to move her R LE somewhat. Pt just finished 7 days of ertapenem for UTI on Sunday. She follows with Dr. Xavier. She requires ertapenem due to multiple abx allergies. Pt is unable to have any metal placed in her body due to severe allergy, even to titanium. She had a L tib fx that was managed non-operatively. Pt also has many issues with medications used for anesthesia. Admission Exam Per Admitting Provider Constitutional: WD/WN, vitals as above Eyes: normal visual paul by confrontation and + anicteric sclerae Neck: normal visual inspection and trachea midline Respiratory: normal respiratory effort, lungs clear to auscultation Cardiovascular: Rate/Rhythm: regular rate and regular rhythm Gastrointestinal (Abdomen): Inspection/Auscultation: abdomen not distended Percussion/Palpation: abdomen soft; abdomen nontender Musculoskeletal: Head/Neck/Chest: normocephalic and head atraumatic negative for edema, peripheral pulses intact Skin: no rashes, warm and dry Neurologic: awake; not confused Speech / Cognition: normal speech Psychiatric: A+Ox3, euthymic affect Principal Diagnosis Subcapital Fracture of the Right Hip Discharge Exam General: Resting comfortably HEENT: NC/AT; PERRLA with EOMI; [place] conjunctiva, MMM. No erythema of posterior pharynx Neck: Supple and nontender Cardiac: RRR Lungs: CTA bilaterally Abdomen: Bowel normoactive X 4; Nontender to palpation Extremities: Warm. No edema present Neuro: No focal weakness Skin: No rash Discharge Data Allergies Allergy/AdvReac Type Severity Reaction Status Date / Time amlodipine Allergy Intermediate cp Verified 12/05/19 13:20 tightness pain in left arm hydralazine Allergy Intermediate N/V severe Verified 12/05/19 13:20 headache cp lisinopril Allergy Intermediate cough Verified 12/05/19 13:20 fluid in lungs losartan Allergy Intermediate confusion Verified 12/05/19 13:20 vomiting muscle weakness Iwhekdv-Abi-Khz Reductase Allergy Intermediate joint Verified 12/05/19 13:20 Inhibitor damage amoxicillin Allergy Unknown unknown Verified 12/05/19 13:20 ampicillin Allergy Unknown UNKNOWN Verified 12/05/19 13:20 Bactrim Allergy Unknown unknown Verified 07/19/18 05:50 cefixime Allergy Unknown unknown Verified 12/05/19 13:20 cefuroxime Allergy Unknown unknown Verified 12/05/19 13:20 cephalexin Allergy Unknown unknown Verified 12/05/19 13:20 Cephalosporins Allergy Unknown unknown Verified 12/05/19 13:20 cephradine [From Velosef] Allergy Unknown UNK Verified 12/05/19 13:20 Cipro Allergy Unknown unknown Verified 07/19/18 05:50 ciprofloxacin Allergy Unknown unknown Verified 12/05/19 13:20 clarithromycin Allergy Unknown unknown Verified 12/05/19 13:20 clindamycin Allergy Unknown unknown Verified 12/05/19 13:20 doxycycline Allergy Unknown unknown Verified 12/05/19 13:20 erythromycin base Allergy Unknown Unknown Verified 12/05/19 13:20 gatifloxacin Allergy Unknown unk Verified 12/05/19 13:20 levofloxacin Allergy Unknown unknown Verified 12/05/19 13:20 lidocaine Allergy Unknown anaphylaxis Verified 12/05/19 13:20 and elevated BP methenamine Allergy Unknown unknown Verified 12/05/19 13:20 morphine Allergy Unknown nose Verified 12/05/19 13:20 swelled shut, hives, itchy moxifloxacin Allergy Unknown unknown Verified 12/05/19 13:20 nitrofurantoin Allergy Unknown unknown Verified 12/05/19 13:20 Penicillins Allergy Unknown unknown Verified 12/05/19 13:20 primidone Allergy Unknown unknown Verified 12/05/19 13:20 Quinolones Allergy Unknown unknown Verified 12/05/19 13:20 shellfish derived Allergy Unknown unknown Verified 12/05/19 13:20 Sulfa (Sulfonamide Allergy Unknown unknown Verified 12/05/19 13:20 Antibiotics) sulfamethoxazole Allergy Unknown unknown Verified 12/05/19 13:20 tetracycline Allergy Unknown unknown Verified 12/05/19 13:20 trimethoprim Allergy Unknown unknown Verified 12/05/19 13:20 latex Allergy Anaphylaxis Verified 12/05/19 13:20 Latex, Natural Rubber Allergy Anaphylaxis Verified 12/05/19 13:20 aspirin AdvReac Severe SENSITIVE Verified 12/05/19 13:20 -- BLEEDING TENDENCIES gabapentin AdvReac Severe PARALYSIS Verified 12/05/19 13:20 NSAIDS (Non-Steroidal AdvReac Severe SENSITIVE Verified 12/05/19 13:20 Anti-Inflamma -- BLEEDING TENDENCIES adhesive AdvReac Intermediate RASH Verified 12/05/19 13:20 metal Allergy Severe Rash Uncoded 12/05/19 14:33 anticoagulants AdvReac Severe Bleeding Uncoded 12/30/19 10:39 Consultations 12/05/19 13:50 Consult Orthopedic Surgery Stat ED Decision to Admit Stat 12/05/19 16:45 Consult Case Management - Discharge Planning Routine Consult Orthopedic Surgery Routine 12/15/19 15:14 Consult Infectious Diseases Routine Ordered Studies 12/05/19 14:53 CT hip RT wo con Stat 12/23/19 14:28 CT hip RT wo con Routine Hip/Pelvix XR 12/05, 12/15, 12/22, 12/25 Hospital Course (1) Subcapital fracture of right hip: * CT of RIGHT hip with subcapital fracture, suspected on previous xray * Ortho consult, appreciate input --> they signed off but continued to follow for imaging review. Pt. and family met with Shelton TERRAZAS from ortho on 12/26. * CT 12/23: no change in alignment of slightly angulated and impacted subcapital fx of R hip; minimal sclerosis at the fracture edges suggestive of early healing. * Most recent XR 12/25 showed no change in alignment of impacted subcapital fracture of the right hip. Plan for follow up XR weekly, next image on 12/31. * Patient and family wish for conservative care because of h/o difficult intubation, difficulties with anesthesia as well as multiple allergies to metals/implants. Discharge to SNF this afternoon. * Recommend serial XRs to determine healing -- recommend f/u imaging weekly (to be arranged by ortho with results reviewed by Dr. Howell) - next XR due 12/31. * Continue bedrest for 3-4 weeks. Start transfer to chair when approved by ortho (possibly ~3 weeks post fracture) * Of note, if head of femur displaced further in the future would need specialty ceramic head replacement at tertiary facility (2) Fall: * Purely mechanical * PT/OT: she cannot participate due to complete bedrest * Plan for SNF this afternoon to complete 3-4 weeks of bedrest total with likely need for acute inpatient rehab following healing of fx. (3) UTI (urinary tract infection): * Recent E. coli UTI, completed 7 day course of Ertapenem on 12/02 -- hx of multiple abx allergies, follows with ID. * C/o dysuria on 12/11, U/a showed >30 WBC and UC with E. coli. Pt. refused f urther abx, felt that she was having a reaction. * Most recent UC 2/2 +E. coli; pt. developed increased dysuria -- received Gentamicin 5 mg/kg x [address] Xavier (on 12/24 and 12/25). Urinary symp toms are now resolved. * Continued Flavoxate prn. (4) Hypothyroidism: * TSH low at 0.272, FT4 elevated at 1.81 * Decreased dose to 88mcg -- recommend repeat TFTs in 1-2 weeks. Patient states her dose was adjusted to 100 mcg back in July. Could consider alternating or doing 100mcg six days a week. (5) Labile hypertension: * Likely related to stress response and hospitalization. * Continued Clonidine, Verapamil as prescribed. * BP was acutely elevated on 12/28, SBP 200. Received additional dose of Verapamil and Clonidine, now improved. Pt. does not want to adjust BP meds. (6) Asthma: * Continued home Budesonide & Advair; Levalbuterol q6hr prn. (7) Vitamin D deficiency: * Continued home vit D 5,000 IU daily (8) Vitamin B12 deficiency: * Hx B12 deficiency. B12 at 289, low normal. * Continued B12 drops (9) Dyslipidemia: * H/o; is statin intolerant. (10) Osteoporosis: * Possible osteoporosis with current pathological fracture. * Continued Vit D supplementation as noted above. (11) Vaginal prolapse: * Long standing issue, has tried numerous pessaries in the past and has had allergic reactions to all of them. * Asked patient about hormone replacement therapy, she refuses to even consider topical agents. (12) Rash: * Resolved. * Continued using Aveeno topical. Own sheets/linens. (13) DVT prophylaxis: * SCDs. * Consider Xarelto on discharge, however, patient very leery of trying any new medications (41 allergies listed). Patient states that she had tried aspirin (even HALF an aspirin at the instruction of Dr. Blanton led to severe epistaxis) Discharged to [facility] on 12/30/19. Of note: If issues occur whenever Ms. Mayer is discharged, to whichever facility has a bed, daughter and patient would like the following people on the contact information for nursing/providers to call: -- Any ENT issues -- contact Dr. Valiente -- Any cardiology issues -- contact Dr. Blanton -- Any infectious disease/UTI issues -- contact Dr. Xavier -- Any neurology issues -- contact Dr. Gonzales -- Any urology issues -- contact Dr. Zachary Isbell. -- Any orthopedic issues -- contact Dr. Howell. Total Time Total Time Spent Total Time Spent (In Minutes): >30 minutes Total Time Includes: Examination of the Patient, Discharge Planning, Medication Reconciliation, Communication With Other Providers and Other Discharge Plan Discharge Items Patient Disposition: Transfer [facility] Reason For Visit: LEG PAIN Discharge Diagnosis: Subcapital Fracture of the Right Hip Condition on Discharge: Good Goals: You have been hospitalized for an acute medical problem. During your stay at [facility], we have made an effort to correct the problem that brought you to the hospital while keeping you as comfortable as possible. Medications were used to bring your condition under control and your discharge instructions will include directions for any medications you should take after leaving the hospital. Please make sure you see your Primary Care Provider as part of your follow up plan. Activity: As commented below Activity Comment: Strict bedrest unless instructed otherwise by Dr. Howell. Exercise/Sports: None Non-emergency contact: Primary Care Provider, Surgeon, President Ceo & Founder and Urologist Call non-emergency contact if: you have any medication questions, your symptoms worsen and you have a fever Follow-up/Referrals: Mauricio Cui DO [Primary Care Provider] - 01/02/20 10:30 am (CALLED PCP @ 1235 AND CANCELLED APPT DUE TO REHAB. DAUGHTER WILL CALL PCP FOR FOLLOW UP ONCE PATIENT IS OFF BEDREST.) Diet: Regular Addtl Attending Provider Instructions: 1. Subcapital fracture of the right hip * Please continue activity restrictions as noted below. * Patient will need weekly XRs of the right hip with results faxed to Dr. Howell -- first XR on 12/31/19. * Please continue Percocet 5/325 mg every 6 hours as needed for moderate to severe pain, Tylenol 500 mg every 6 hours for mild pain. 2. Recent UTI * Pt. was recently treated with Gentamicin on 12/24 and 12/25 for E. coli UTI. Urinary symptoms are now resolved. * Continue Flavoxate as needed for bladder spasms. * If patient develops urinary symptoms and urine culture is positive, please contact Dr. Janet Xavier immediately to discuss antibiotic choice due to multiple drug allergies. 3. Hypothyroidism * Please take Levothyroxine 88 mcg daily. * Recommend repeat thyroid function studies in 1-2 weeks for re-evaluation. 4. Hypertension * Please continue Clonidine and Verapamil as prescribed. * If patient has persistent HTN, please take an additional dose of Verapamil 80 mg followed by Clonidine 0.1 mg. * Patient follows with Dr. Blanton from cardiology - please contact him for any cardiac issues. 5. Pt. has requested to not use an air bed at your facility. 6. For urgent issues, please contact: * Cardiology - Dr. Blanton. * ENT - Dr. Valiente * Infectious disease - Dr. Xavier. * Neurology - Dr. Gonzales. * Urology - Dr. Zachary Isbell * Orthopedic - Dr. Lynda Levin [employer] Professor Provider Instructions: Strict bedrest. Nonweightbearing right lower extremity GENTLE Log rolling to clean patient/bedpan use AND FOR XRAYS. Head of bed flexed up NO FURTHER THAN 30 DEGREES. Weekly AP Pelvis /AP and Lateral hip xray with results sent to Dr Howell as written on RX starting 12/31/2019 Pending Studies at Discharge: No Stand-Alone Forms: [facility] Skilled Items Patient informed of condition?: Yes DNR: No Discharge Level of Care: Skilled Communicable Disease: No Discharge Prognosis: Improving Lines: None Urinary Catheter: No Medications and DC Order Prescriptions: New acetaminophen [Mapap (acetaminophen)] 325 mg Tablet 500 mg PO Q6H PRN (Reason: pain) Qty: 1 RF: 0 fluticasone propion-salmeterol 100-50 mcg/dose blister with device 1 puffs INH BID Qty: 14 RF: 0 fluocinonide 0.05 % cream 1 appln TOP BID PRN (Reason: rash) Qty: 15 RF: 0 alum-mag hydroxide-simeth [Maalox Advanced] 200-200-20 mg/5 mL suspension 5 ml PO QID PRN (Reason: indigestion) Qty: 3000 RF: 0 Continued methocarbamol 500 mg Tablet 250 - 500 mg PO BID PRN (Reason: Muscle Pain) Qty: 0 RF: 0 oxycodone-acetaminophen 5-325 mg Tablet 1 tab PO Q6H PRN (Reason: Pain) Qty: 0 RF: 0 ascorbic acid (vitamin C) 500 mg Tablet 500 mg PO DAILY PRN (Reason: Acid Reflux) Qty: 0 RF: 0 cholecalciferol (vitamin D3) 5,000 unit Capsule 5,000 unit PO DAILY Qty: 0 RF: 0 clonidine HCl 0.1 mg Tablet 0.1 mg PO TID Qty: 0 RF: 0 flavoxate 100 mg Tablet 100 mg PO TID PRN (Reason: Bladder Spasms) Qty: 0 RF: 0 cetirizine 5 mg/5 mL Solution 5 mg PO QAM PRN (Reason: SEASONAL ALLERGIES) Qty: 0 RF: 0 levalbuterol tartrate 45 mcg/actuation Hfa Aerosol Inhaler 1 puff INHALATION Q6H PRN (Reason: Shortness Of Breath) Qty: 0 RF: 0 verapamil 80 mg tablet 80 mg PO TID Qty: 0 RF: 0 Changed hydrocortisone 0.5 % Cream 1 applic TOPICAL QID PRN (Reason: rash) Qty: 0 RF: 0 diphenhydramine HCl 12.5 mg/5 mL Liquid 25 mg PO Q6H PRN (Reason: Allergic Reaction) Qty: 0 RF: 0 ergotamine-caffeine 1-100 mg tablet 0.5 tab PO DAILY PRN (Reason: Migraine Headache) Qty: 45 RF: 3 levothyroxine 100 mcg Tablet 88 mcg PO DAILY Qty: 0 RF: 0 nitroglycerin [Nitrostat] 0.4 mg Tablet, Sublingual 0.4 mg Sublingual Q5M PRN (Reason: Chest Pain) Qty: 0 RF: 0 Discontinued budesonide 32 mcg/actuation [place],Non-Aerosol 2 spray INTRANASAL BID Qty: 0 RF: 0 fluocinonide 0.05 % Gel 1 applic TOPICAL QID RF: 0 ondansetron HCl [Zofran] 4 mg Tablet 4 mg PO Q6H PRN (Reason: Nausea And Vomiting) RF: 0 Mylanta Maximum Strength 400-400-40 mg/5 mL Suspension 5 ml PO QID PRN (Reason: Gastric Reflux) RF: 0 Discharge Orders: Discharge Order (Routine); Ordered 12/30/19 Ordered By: Nae Paredes Admission Data Admit Date/Time: 12/05/19 14:25 Attending Provider: Khalida Galvan Admit Provider: Cyndie Chowdhury Primary Care Provider: Mauricio Cui Other Providers: Sherman Neal ; Cyndie Chowdhury ; [facility] ; [place] ; [facility], ; [facility] ; Delfina Xavier ; Adarsh Miles ; [facility] [place] Other Interventions: Discharge Summary Assessment (RN) Last Done: 12/30/19 16:21 DC Date/Time DO NOT enter until pt leaves facility: 12/30/19 16:39 Supervising Physician Co-Signing Physician Notes PA Supervision Note: I personally saw and examined the patient. I verified all jansen points and agree with REJI Paredes with the following exceptions and/or additions: Patient feeling well. No pain in the hip. Had a prolonged hospitalization mostly for placement at a senior care facility that was willing to accept her given multiple requests and multiple allergies. Plan is for bed rest for healing of hip fracture rather than surgery Vitals reviewed Gen: AAOx3, NAD HEENT: Anicteric sclerae, EOMI CV: RRR no mgr nl S1S2 Pulm: CTAB no wcr Abd: +BS soft NT ND no masses or hernias Ext: No edema, 2+ DP pulses, right hip no tenderness to palpation 74-year-old female with history as above, here with fall and hip fracture- conservative management without surgery -Close follow-up with orthopedics and serial x-rays Coding Level of Care Code D/C Day Management >30 mins Diagnoses Subcapital fracture of right hip S72.011A Encounter type: initial encounter Fracture type: closed Fall [id number].XXXA Encounter type: initial encounter UTI (urinary tract infection) N39.0 Hypothyroidism E03.9 Labile hypertension R09.89 Asthma J45.909 Vitamin D deficiency E55.9 Vitamin B12 deficiency E53.8 Dyslipidemia E78.5 Osteoporosis M81.0 Vaginal prolapse N81.10 Rash R21 DVT prophylaxis Z29.9
== END 2019-12-30 16:39 | DRG 543 ==
LOC: ED 12:16 → SUATTDRO 14:25 → 3W 14:25